=== PATIENT | male | born 1955 | race Two or more races ===

== ENCOUNTER 2017-11-21 15:28 | Emergency (ER) | payer OTHER | END 2017-11-21 18:08 | disposition home or self-care (01) | LOC: ER 18:08 | DX: R07.81 Pleurodynia (principal); M25.511 Pain in right shoulder; I10 Essential (primary) hypertension | CPT/HCPCS: 71101; 73030; 99284 ==

== ENCOUNTER 2018-05-06 08:40 | Outpatient (CLI) | payer OTHER ==
[~2018-05-06] VITALS: Ht 124.5 cm; Wt 45.4 kg
[2018-05-06] VITALS (8 sets, daily range): BP systolic 128–194; BP diastolic 76–109
[~2018-05-06 08:40] MED LIST: HYDR-3164 PO
[2018-05-06 08:56] LABS: BASO % 1 % (0-3); EOS # 0.1 x10^3/uL (0.0-0.7); EOS % 3 % (0-3); HEMATOCRIT 38.2 % (36.0-47.0); HEMOGLOBIN 13.1 g/dL (12.0-15.5); LYMPH # 1.9 x10^3/uL (1.0-4.8); LYMPH % 37 % (24-48); MEAN CORPUSCULAR HEMOGLOBIN 27 pg (25-35); MEAN CORPUSCULAR HGB CONC 34 g/dL (31-37); MEAN CORPUSCULAR VOLUME 79 fL (79-100); MONO # 0.3 x10^3/uL (0.0-1.1); MONO % 5 % (0-9); NEUT # 2.9 x10^3uL (1.8-7.7); NEUT % 54 % (31-73); PLATELET COUNT 163 x10^3/uL (140-400); RED BLOOD COUNT 4.85 x10^6/uL (3.50-5.40); RED CELL DISTRIBUTION WIDTH 16.8 % (11.5-14.5); WHITE BLOOD COUNT 5.3 x10^3/uL (4.0-11.0)
[2018-05-06] MEDS ORDERED: fentaNYL PF VIAL 100 MCG/2 ML VIAL ONE (09:09)
[2018-05-06] MEDS ORDERED: MIDAZOLAM HCL/PF 2 MG/2 ML VIAL. ONE (09:09)
[2018-05-06] MEDS ORDERED: LIDOCAINE WITH 8.4% SOD BICARB 3 ML DISP.SYRIN. ONE ×2 (09:09→09:10)
[2018-05-06 09:10] LABS: CALCIUM 9.1 mg/dL (8.5-10.1); CREATININE 0.7 mg/dL (0.6-1.0); GFR 84.8; POTASSIUM 4.4 mmol/L (3.5-5.1)
[2018-05-06] MEDS ORDERED: METO-247 PO (09:15)
[2018-05-06] MEDS ORDERED: METH2.5T PO (09:15)
[2018-05-06] MEDS ORDERED: VERA240C2 PO (09:15)
[2018-05-06] MEDS ORDERED: LEVO50TA5 PO (09:15)
[2018-05-06] MEDS ORDERED: HYDR-2145 PO (09:15)
[2018-05-06] MEDS ORDERED: FOLI1TAB16 PO (09:15)
[2018-05-06] MEDS ORDERED: PRED20TA PO (09:16)
[2018-05-06 09:17] LABS: ALBUMIN/GLOBULIN RATIO 0.5 (1.0-1.7); TOTAL BILIRUBIN 0.3 mg/dL (0.2-1.0); TOTAL PROTEIN 8.8 g/dL (6.4-8.2)
[2018-05-06 09:41] LABS: PROTHROMBIN TIME PATIENT 12.2 SEC (11.7-14.0)
[2018-05-06] MEDS ORDERED: LIDOCAINE WITH 8.4% SOD BICARB 3 ML DISP.SYRIN. IJ ONE (09:45)
[2018-05-06] MEDS ORDERED: MIDAZOLAM HCL/PF 2 MG/2 ML VIAL. IV ONE (09:45)
[2018-05-06] MEDS ORDERED: fentaNYL PF VIAL 100 MCG/2 ML VIAL IV ONE (09:45)
--- NOTE | 2018-05-06 11:09 | NUR ---
discharge instructions reviewed with pt and family. Pt tolerated PO and ambulated. Pt discharged home with family
--- NOTE | 2018-05-07 13:42 | RAD ---
CT-guided bone marrow biopsy. 05/07/2018 1:36 PM Indication: MGUS Discussion: The risks and benefits of the procedure, including but not limited to, bleeding and infection were discussed patient. Informed consent was obtained. The patient was brought to the CT scanner and placed in the prone position. A timeout procedure was performed. [employer] CT imaging of the pelvis demonstrated left ilium amenable to bone marrow biopsy. The overlying soft tissues were prepped and draped using maximum sterile barrier technique. 1% lidocaine without epinephrine was administered for local anesthesia. Under intermittent CT guidance, an Onc Control needle was advanced into the bone marrow of the left iliac crest. 2 Aspirates and 1 core biopsy samples were obtained. Samples were delivered to pathology was present at the time of procedure. The needle was removed and manual pressure held to achieve hemostasis. No immediate complications were identified. The procedure was performed under conscious sedation including continuous cardiopulmonary monitoring via dedicated sedation nurse. Sedation time: 20 minutes Impression: Successful CT-guided bone marrow biopsy of the left iliac crest . PQRS Compliance Statement: One or more of the following individualized dose reduction techniques were utilized for this examination: 1. Automated exposure control 2. Adjustment of the mA and/or kV according to patient size 3. Use of iterative reconstruction technique
--- NOTE | 2018-05-17 17:09 | PATHOLOGY ---
[facility] Accession Number: [id number] . 01 Material submitted: . PART A: BONE MARROW BIOPSY PART B: BONE MARROW CLOT PART C: BONE MARROW ASPRIATE SMEARS PART D: PERIPH BLOOD SMEARS . 01 Clinical history: . MGUS . 02 Diagnosis: Peripheral smear: - No significant pathologic abnormalities. . Bone marrow, aspirate smears, clot section, and core biopsy: - Normocellular marrow showing trilineage hematopoiesis, no significant dyspoiesis, and a moderate plasmacytosis comprised of abnormal plasma cells showing immunophenotypic evidence of lambda light chain restriction-findings are compatible with a plasma cell neoplasm. - Nearly absent iron stores. (JPM:conor; 05/17/2018) QMS/05/17/2018 . 02 Comment: The peripheral smear shows no significant pathologic abnormalities. The bone marrow is normocellular and shows trilineage hematopoiesis, no significant dyspoiesis, and a moderate plasmacytosis comprised of abnormal plasma cells showing immunophenotypic evidence of lambda light chain restriction. Plasma cells comprise approximately 20% of nucleated marrow cells. There does appear to be end organ damage as evidenced by the presence of multiple small lytic lesions in the calvarium on skeletal survey. 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 . The case is also examined by Dr. Vanesa Castillo, who concurs with the diagnosis. (JPM:conor; 05/17/2018) . . Special stains performed: Iron stain on B1. Aspirate smear and reticulin stain on A1. Immunoperoxidase stains for CD138 on A1 and B1. [place] and lambda ALEXANDR on A1. [place] and lambda ALEXANDR on B1. . 02 Electronically signed: . Óscar Baugh MD, Pathologist NPI- [id number] . 01 Gross description: . A. Received in formalin labeled "Madhav Evans, BM BX," is a single needle core of [place] bone measuring 1.4 cm in length and 0.2 cm in diameter. The specimen is submitted entirely in cassette A1, following decalcification. . B. Received in formalin labeled "Madhav Evans, BM Asp clot," is an aggregate of dark g[place]am blood clot measuring 2.6 x 2.9 x 0.3 cm. The specimen is filtered and entirely submitted in cassette B1. (TSD; 05/06/2018) TOB/TOB . 02 Microscopic: . Laboratory Data: The WBC count is 5.3 K/CMM, and the automated WBC differential reveals 54% neutrophils, 37% lymphs, 5% monos, 3% eos, and 1% baso. The RBC count is 4.85 M/CMM, hemoglobin 13.1 G/DL, hematocrit 38.2%, MCV 79 FL, MCH 27 PG, MCHC 34 G/DL, and the RDW is 16.8%. The platelet count is 163 K/CMM. The total protein is 8.8 G/DL, albumin 3.0 G/DL, and the globulin is 5.8 G/DL. Calcium is 9.1 MG/DL and Creatinine 0.7 MG/DL. . Additional laboratory studies are obtained from Dr. William' office. Serum protein electrophoresis shows a probable monoclonal spike in the beta/gamma region of 2.53 G/DL. Serum immunofixation shows an IgA lambda paraprotein. The serum IgG is 648 MG/DL, IgA 3280 MG/DL, and IgM 50 MG/DL. The serum kappa free light chain is 0.92 MG/DL, lambda free light chain 4.97 MG/DL, and kappa/lambda free light chain ratio 0.19. The beta-2 microglobulin is 2.5 MG/L. Skeletal survey in April 2018 showed multiple small lytic lesions in the calvarium and mild osteopenia. . Peripheral Smear: The peripheral smear is reviewed. The WBC count is normal. The WBC differential reveals a predominance of segmented neutrophils, with a smaller population of lymphocytes and with several monocytes and a few eosinophils noted. Neutrophils do not show dysplastic changes. There is no significant neutrophilic left shift. There are no circulating blasts. There is no leukoerythroblastic reaction. The lymphocyte population consists of small lymphocytes and several medium-sized granular lymphocytes and reactive lymphocytes. There are no circulating myeloma cells. Red blood cells are normochromic. Red blood cells show mild anisocytosis and range from normocytic to mildly microcytic. Red blood cells show no significant poikilocytosis. There is no evidence of red blood cell rouleaux. Platelets appear normal in number and morphology. . Aspirate Smears: Two Mcadams's-stained and one iron-stained aspirate smears are examined. The smears contain multiple marrow particles. The M/E ratio is within normal range. Erythroid maturation appears normoblastic. There are no megaloblastic or overt dysplastic changes. Granulopoiesis qualitatively appears normal. There are no significant dysplastic changes. There is no increase of blasts. Megakaryocytes appear adequate in number and are of variable ploidy. Plasma cells are increased. Plasma cells focally comprise up to approximately 15-20% of nucleated marrow cells. Other areas shows a smaller percentage of plasma cells. The plasma cells are abnormal and are enlarged, and possess enlarged rounded to ovoid nuclei containing small nucleoli. There are occasional binucleated and trinucleated plasma cells. Lymphocytes are not increased. There are no cells foreign to the marrow. The iron stain of the aspirate smear is insufficient for evaluation of iron stores because of a lack of marrow particles. . Bone Marrow Biopsy and Clot Section: Sections of the bone marrow biopsy reveal a segment of bone marrow which ranges from 10-20% up to approximately 40% cellular. The clot section contains multiple marrow particles, the majority of which range between 20% and 40% cellular. There is trilineage hematopoiesis. There is a good admixture of erythroid and granulocytic precursors, which are present in varying stages of maturation. There is no increase of blasts. Megakaryocytes appear adequate in number and are of variable ploidy. Plasma cells are increased and are focally present in small clusters. There are no areas of sheet-like replacement by plasma cells. The plasma cells are abnormal. The plasma cells are enlarged and have ample amounts of basophilic cytoplasm, and possess enlarged rounded to ovoid nuclei containing indistinct or small nucleoli. There are no abnormal lymphoid aggregates, granulomas, or cells foreign to the marrow. To confirm flow cytometric findings and characterize the target cells in a tissue architectural context, immunoperoxidase stain for CD138 and in situ hybridization for kappa and lambda light chain are obtained and yield the following results: . CD138 (A1): Plasma cells positive scattered throughout marrow and present in small clusters; plasma cells comprise approximately 20% of nucleated marrow cells. . [place] and lambda ALEXANDR (A1): Plasma cells show lambda light chain restriction with only a few kappa plasma cells present. . CD138 (B1): Plasma cells positive scattered throughout marrow and present in small clusters; plasma cells comprise approximately 20% of nucleated marrow cells. . [place] and lambda ALEXANDR (B1): Plasma cells show lambda light chain restriction with only a few kappa plasma cells present. . A reticulin stain obtained on the bone marrow biopsy shows no significant increase of reticulin fibers. An iron stain obtained on the clot section shows markedly decreased and nearly absent iron stores. No ringed sideroblasts are identified. . Special Studies: Bone marrow submitted for flow cytometry has a viability of 98.7%. Granulocytes comprise 43.6% of total cells and show phenotypic evidence of maturation. Monocytes comprise 2.0% of total cells and co-express CD14 and CD64. CD45 dim, CD34 positive cells comprise 0.2% of total cells. Lymphocytes comprise 23.4% of total cells. T-cells comprise 73% of lymphoid cells which show a CD4/CD8 ratio of 2.0. NK-cells comprise 12% of lymphoid cells. Mature B-cells comprise 9% of lymphoid cells and are polyclonal with a kappa:lambda ratio of 1.3. There is a population of monoclonal plasma cells, comprising 0.8% of cells, which are CD38, CD56, CD117 (partial), and CD138 positive and show cytoplasmic lambda positivity. These plasma cells are negative for CD19, CD20, and CD45. . Bone marrow submitted for cytogenetic analysis shows a normal female karyotype in all cells analyzed. (JPM:xi/conor; 05/17/2018) . 02 Pathologist provided ICD-10: D47.Z9, D72.822 . 02 CPT . 634832, 861629, 268631, 598747, 152753, 584425, 385970, 875079, P85597, D54882, G79489 Specimen Comment: A courtesy copy of this report has been sent to Specimen Comment: [phone]. Specimen Comment: Report sent to Performed at: [address] [facility], [place], [place] [id number] MD Darren Acevedo MD Phone: [phone] Performed at: 02 [facility] [address], [place] [id number] MD Óscar Baugh MD Phone: [phone]
== END 2018-05-06 11:10 | disposition home or self-care (01) ==
LOC: INTRAD 08:40
PROVIDERS: ATTEND Internal Medicine Hematology & Oncology
DX: D47.2 Monoclonal gammopathy (principal); D70.4 Cyclic neutropenia; I10 Essential (primary) hypertension; F17.200 Nicotine dependence, unspecified, uncomplicated; Z79.899 Other long term (current) drug therapy; Z88.1 Allergy status to other antibiotic agents
CPT/HCPCS: 36415; 38222; 77012; 80053; 85025; 85610; 88184; 88185; 88237; 99152; J2250; J3010

== ENCOUNTER 2018-06-14 17:17 | Emergency (ER) | payer OTHER ==
[~2018-06-14] VITALS: Ht 139.7 cm; Wt 45.4 kg
[~2018-06-14 17:17] MED LIST changes: +FOLI1TAB16 PO; +HYDR-2145 PO; +LEVO50TA5 PO; +METH2.5T PO; +METO-247 PO; +PRED20TA PO; +VERA240C2 PO
[2018-06-14 18:10] VITALS: BP 145/94
[2018-06-14] MEDS ORDERED: NAPROXEN 500 MG TABLET PO STA (18:31)
[2018-06-14] MEDS ORDERED: HYDROcodone/APAP 5/325MG 1 TAB TABLET PO ONE (18:45)
--- NOTE | 2018-06-14 20:24 | PHYS DOC ---
Past Medical History Past Medical History: Hypertension (DERRICK MARTINEZ APRN) Past Surgical History: No Surgical History (DERRICK MARTINEZ APRN) Alcohol Use: None Drug Use: None (TESSIEDERRICK Moreno APRN) Adult General Chief Complaint Chief Complaint: MECHANICAL FALL HPI HPI Patient is a 63 year old female with history of hypertension who presents to the ED today complaining of mild left lateral ankle pain that began 3 days ago after she slipped on ice and fell. Patient denies any loss of consciousness. She states her pain is worse on weight bearing. She states she has not taken anything for her pain today. Patient has the son who is interpreting for her [place] language (DERRICK MARTINEZ SHERLYN) Review of Systems Review of Systems Constitutional: Denies fever or chills [] Musculoskeletal: Left ankle pain Integument: Denies rash or skin lesions [] Neurologic: Denies headache, focal weakness or sensory changes [] All other systems were reviewed and found to be within normal limits, except as documented in this note. (HOWARDLISSADERRICK Moreno APRN) Current Medications Current Medications Current Medications Medications (Trade) Dose Ordered Sig/Idris Start Time Stop Time Status Last Admin Dose Admin Acetaminophen/ Hydrocodone Bitart (Lortab 5/325) 1 tab 1X ONCE 06/14/18 18:45 06/14/18 18:46 DC 06/14/18 18:44 1 TAB Naproxen (Naprosyn) 500 mg 1X STAT 06/14/18 18:31 06/14/18 18:34 DC 06/14/18 18:45 500 MG (MALU VERGARA MD) Allergies Allergies Allergies Coded Allergies Type Severity Reaction Last Updated Verified No Known Drug Allergies 11/21/17 No (MALU VERGARA MD) Physical Exam Physical Exam Constitutional: Well developed, well nourished, no acute distress, non-toxic appearance. [] Skin: Warm, dry, no erythema, no rash. [] Back: No tenderness, no CVA tenderness. [] Extremities: Left ankle with no obvious deformity, soft tissue swelling noted on the left lateral ankle as well as left foot the patient denies any foot pain or tenderness. Tenderness on palpation of the left lateral ankle. Full range of motion to the left ankle and toes. +2 left pedal pulse. Cap refill less than 2 seconds. Sensation intact to the left lower extremity. Neurologic: Alert and oriented X 3, normal motor function, normal sensory function, no focal deficits noted. [] Psychologic: Affect normal, judgement normal, mood normal. [] (DERRICK MARTINEZ APRN) Current Patient Data Vital Signs Vital Signs Date Time Temp Pulse Resp B/P (MAP) Pulse Ox O2 Delivery O2 Flow Rate FiO2 06/14/18 18:10 97.9 81 16 145/94 (111) 98 Room Air 97.9 (MALU VERGARA MD) EKG EKG [] (DERRICK MARTINEZ APRN) Radiology/Procedures Radiology/Procedures [] (DERRICK MARTINEZ APRN) Course & Med Decision Making Course & Med Decision Making Pertinent Labs and Imaging studies reviewed. (See chart for details) This is a 63-year-old female patient presented to the ED today with left ankle pain after falling 3 days ago. Left ankle x-rays interpreted by Dr. Vergara was noted for distal fibular fracture. Patient was placed in a posterior leg splint by the accounts payable technician, neurovascular exam done by me is normal post splint application. Ice elevation encouraged. Follow-up with orthopedic doctor tomorrow (DERRICK MARTINEZ APRN) Course & Med Decision Making Staff Physician Addendum: I was working in the ER during the course of this patient's visit. I was available for consultation as needed, but I was not directly involved in the care of this patient. (MALU VERGARA MD) Dragon Disclaimer Dragon Disclaimer This electronic medical record was generated, in whole or in part, using a voice recognition dictation system. (DERRICK MARTINEZ APRN) Departure Departure Impression: Primary Impression: Fall from standing Additional Impression: Closed fibular fracture Disposition: 01 HOME, SELF-CARE Condition: STABLE Referrals: HILDA SHAHID MD (PCP) WAYNE MUSA MD Call his office tomorrow and set up a follow-up appointment Patient Instructions: Fibular Fracture with [facility] Additional Instructions: You have left fibular fracture. Contact the provided orthopedic doctor tomorrow morning and set up a follow-up appointment. Ice elevate the extremity. Take the prescribed medications as needed for pain. Scripts Hydrocodone/Apap 5-325 (NORCO 5-325 TABLET) 1 Each Tablet 1 TAB PO Q6HRS, #20 TAB Prov: DERRICK MARTINEZ APRN 06/14/18 Problem Qualifiers Primary Impression: Fall from standing Encounter type: initial encounter Qualified Codes: W19.XXXA - Unspecified fall, initial encounter Additional Impression: Closed fibular fracture Encounter type: initial encounter Fibula location: distal Fracture morphology: unspecified fracture morphology Laterality: left Qualified Codes : S82.832A - Other fracture of upper and lower end of left fibula, initial encounter for closed fracture DERRICK MARTINEZ APRN Jun 14, 2018 20:24 MALU VERGARA MD Jun 15, 2018 04:48
[2018-06-14] MEDS ORDERED: HYDR-3164 PO (20:59)
--- NOTE | 2018-06-14 21:06 | RAD ---
Indication:LEFT KNEE PAIN AFTER FALL TECHNIQUE: 3 views of the left knee COMPARISON:None FINDINGS/ impression: No acute fracture or dislocation. No joint effusion. Moderate medial and lateral joint compartment arthritis. Electronically signed by: Tony Deluna DO (06/14/2018 9:03 PM) [facility]
--- NOTE | 2018-06-14 21:07 | RAD ---
Indication:LEFT LATERAL ANKLE PAIN, BRUISING AFTER FALL X1 WEEK AGO TECHNIQUE: 3 views of the left ankle COMPARISON:None FINDINGS/ impression: Oblique nondisplaced fracture is seen through the lateral malleolus. Ankle mortise is intact. Mild ankle soft tissue swelling. Electronically signed by: Tony Deluna DO (06/14/2018 9:04 PM) [facility]
== END 2018-06-14 21:15 | disposition home or self-care (01) ==
LOC: ER 17:17
DX: S82.832A Other fracture of upper and lower end of left fibula, initial encounter for closed fracture (principal); M25.562 Pain in left knee; I10 Essential (primary) hypertension; W00.2XXA Other fall from one level to another due to ice and snow, initial encounter; Y93.89 Activity, other specified; Y92.89 Other specified places as the place of occurrence of the external cause; Y99.8 Other external cause status
CPT/HCPCS: 29515; 73564; 73610; 99283-25

== ENCOUNTER 2018-08-04 19:11 | Inpatient (IN) | payer OTHER ==
[~2018-08-04] VITALS: Ht 124.5 cm; Wt 41.7 kg
[2018-08-04 20:29] LABS: BILIRUBIN,URINE NEGATIVE (NEG); CLARITY,URINE CLEAR; COLOR,URINE YELLOW; NITRITE,URINE NEGATIVE (NEG); PH,URINE 5.5; PROTEIN,URINE NEGATIVE (NEG-TRACE); UROBILINOGEN,URINE 0.2 mg/dL (0.2 mg/dL)
[2018-08-04] MEDS ORDERED: IPRATRPIUM/ALBUTEROL 0.5/2.5MG 3 ML NEBU. NEB ONE (20:30)
[2018-08-04] MEDS ORDERED: ACETAMINOPHEN 500 MG TABLET PO ONE (20:30)
[2018-08-04 20:45] LABS: SQUAMOUS EPITHELIAL CELL,UR MANY /LPF
[2018-08-04 20:46] LABS: BACTERIA,URINE MODERATE /HPF (0-FEW); RBC,URINE 0 /HPF (0-2); WBC,URINE >40 /HPF (0-4)
[2018-08-04 20:50] LABS: BASO % 0 % (0-3); EOS # 0.1 x10^3/uL (0.0-0.7); EOS % 2 % (0-3); HEMATOCRIT 41.5 % (36.0-47.0); HEMOGLOBIN 13.4 g/dL (12.0-15.5); LYMPH # 1.1 x10^3/uL (1.0-4.8); LYMPH % 33 % (24-48); MEAN CORPUSCULAR HEMOGLOBIN 26 pg (25-35); MEAN CORPUSCULAR HGB CONC 32 g/dL (31-37); MEAN CORPUSCULAR VOLUME 79 fL (79-100); MONO # 0.6 x10^3/uL (0.0-1.1); MONO % 19 % (0-9); NEUT # 1.6 x10^3uL (1.8-7.7); NEUT % 47 % (31-73); PLATELET COUNT 144 x10^3/uL (140-400); RED BLOOD COUNT 5.24 x10^6/uL (3.50-5.40); RED CELL DISTRIBUTION WIDTH 18.2 % (11.5-14.5); WHITE BLOOD COUNT 3.4 x10^3/uL (4.0-11.0)
[2018-08-04 21:00] LABS: CALCIUM 8.9 mg/dL (8.5-10.1); CREATININE 0.6 mg/dL (0.6-1.0); GFR 101.3; POTASSIUM 3.9 mmol/L (3.5-5.1)
[2018-08-04 21:06] LABS: ALBUMIN 3.6 g/dL (3.4-5.0); ALBUMIN/GLOBULIN RATIO 1.1 (1.0-1.7); TOTAL BILIRUBIN 0.4 mg/dL (0.2-1.0); TOTAL PROTEIN 6.9 g/dL (6.4-8.2)
--- NOTE | 2018-08-04 21:09 | PHYS DOC ---
Past Medical History Past Medical History: Cancer, Hypertension Additional Past Medical Histor: MGUS, Unknown Bone Marrow cancer Past Surgical History: No Surgical History Alcohol Use: None Drug Use: None Adult General Chief Complaint Chief Complaint: MULTIPLE COMPLAINTS HPI HPI Patient is a 63 year old female who presents with complaints of subjective fever, general malaise, fatigue, and abdominal pain. Pt is [place] and her history is provided by her son, who translates. Pt reports that she has an unknown bone marrow cancer (per my review of path report earlier this year probably multiple myeloma) and receives injectable chemotherapeutics Thursday and Thursday in the abdomen for the last several months. Pt reports intermittent cough with minimal to no sputum production. She reports increasing abdominal pain since Thursday following her latest injectable therapy. She reports that her abdomen is tender to touch with a burning sensation throughout her abdomen. This burning sensation has increased since Thursday and not improving. She has taken one dose of Tylenol today, with minimal improvement. She reports some diarrhea which resolved one day ago. She denies chills, n/v/CP/SOB. [] Review of Systems Review of Systems Constitutional: Reports subjective fever, general malaise, denies chills [] Eyes: Denies change in visual acuity, redness, or eye pain [] HENT: Denies nasal congestion or sore throat [] Respiratory: Reports intermittent cough with little to no sputum production. Denies shortness of breath [] Cardiovascular: No additional information not addressed in HPI [] GI: Denies bloody stools and nausea/vomiting. Reports burning abdominal pain, diarrhea [] : Denies dysuria or hematuria [] Musculoskeletal: Denies back pain or joint pain [] Integument: Denies rash or skin lesions [] Neurologic: Denies headache, focal weakness or sensory changes [] Endocrine: Denies polyuria or polydipsia [] All other systems were reviewed and found to be within normal limits, except as documented in this note. Current Medications Current Medications Current Medications Medications (Trade) Dose Ordered Sig/Idris Start Time Stop Time Status Last Admin Dose Admin Acetaminophen (Tylenol) 1,000 mg 1X ONCE 08/04/18 20:30 08/04/18 20:31 DC 08/04/18 22:30 1,000 MG Albuterol/ Ipratropium (Duoneb) 3 ml 1X ONCE 08/04/18 20:30 08/04/18 20:31 DC 08/04/18 20:39 3 ML Ceftriaxone Sodium (Rocephin) 1 gm 1X ONCE 08/04/18 22:30 08/04/18 22:31 DC 08/04/18 22:30 1 GM Fentanyl Citrate (Fentanyl 2ml Vial) 50 mcg PRN Q1HR PRN 08/04/18 23:00 08/05/18 22:59 08/04/18 23:27 50 MCG Ondansetron HCl (Zofran) 4 mg PRN Q8HRS PRN 08/04/18 23:00 08/05/18 22:59 Sodium Chloride 1,000 ml @ 100 mls/hr Q10H 08/04/18 23:00 08/05/18 22:59 08/04/18 23:26 100 MLS/HR Allergies Allergies Allergies Coded Allergies Type Severity Reaction Last Updated Verified No Known Drug Allergies 11/21/17 No Physical Exam Physical Exam Constitutional: Well developed, under nourished, no acute distress, appears subdued, non-toxic appearance. [] HENT: Normocephalic, atraumatic, bilateral external ears normal, oropharynx moist, no oral exudates, nose normal. [] Eyes: PERRLA, EOMI, conjunctiva normal, no discharge. [] Neck: Normal range of motion, no tenderness, supple, no stridor. [] Cardiovascular:Heart rate regular rhythm, no murmur [] Lungs & Thorax: Bilateral faint expiratory wheezes, no crackles [] Abdomen: mildly erythematous injection site observed RLQ no induration there, bowel sounds normal, soft, tender to palpation RLQ and periumbilicall, no masses , no pulsatile masses. [] Skin: Warm, dry, no erythema, no rash. [] Back: No tenderness, no CVA tenderness. [] Extremities: No tenderness, no cyanosis, no clubbing, ROM intact, no edema. [] Neurologic: Alert and oriented X 3, normal motor function, normal sensory function, no focal deficits noted. [] Psychologic: Affect normal, judgement normal, mood normal. [] Current Patient Data Vital Signs Vital Signs Date Time Temp Pulse Resp B/P (MAP) Pulse Ox O2 Delivery O2 Flow Rate FiO2 08/04/18 20:41 96 Room Air 08/04/18 20:35 78 24 143/99 (114) 08/04/18 19:25 97.9 97.9 Lab Values Laboratory Tests Test 08/04/18 19:30 08/04/18 20:40 08/04/18 22:05 Urine Collection Type Unknown Urine Color Yellow Urine Clarity Clear Urine pH 5.5 Urine Specific [place] 1.010 Urine Protein Negative mg/dL (NEG-TRACE) Urine Glucose (UA) Negative mg/dL (NEG) Urine Ketones (Stick) Negative mg/dL (NEG) Urine Blood Trace (NEG) Urine Nitrite Negative (NEG) Urine Bilirubin Negative (NEG) Urine Urobilinogen Dipstick 0.2 mg/dL (0.2 mg/dL) Urine Leukocyte Esterase Large (NEG) Urine RBC 0 /HPF (0-2) Urine WBC >40 /HPF (0-4) Urine Squamous Epithelial Cells Many /LPF Urine Bacteria Moderate /HPF (0-FEW) White Blood Count 3.4 x10^3/uL (4.0-11.0) L Red Blood Count 5.24 x10^6/uL (3.50-5.40) Hemoglobin 13.4 g/dL (12.0-15.5) Hematocrit 41.5 % (36.0-47.0) Mean Corpuscular Volume 79 fL (79-100) Mean Corpuscular Hemoglobin 26 pg (25-35) Mean Corpuscular Hemoglobin Concent 32 g/dL (31-37) Red Cell Distribution Width 18.2 % (11.5-14.5) H Platelet Count 144 x10^3/uL (140-400) Neutrophils (%) (Auto) 47 % (31-73) Lymphocytes (%) (Auto) 33 % (24-48) Monocytes (%) (Auto) 19 % (0-9) H Eosinophils (%) (Auto) 2 % (0-3) Basophils (%) (Auto) 0 % (0-3) Neutrophils # (Auto) 1.6 x10^3uL (1.8-7.7) L Lymphocytes # (Auto) 1.1 x10^3/uL (1.0-4.8) Monocytes # (Auto) 0.6 x10^3/uL (0.0-1.1) Eosinophils # (Auto) 0.1 x10^3/uL (0.0-0.7) Basophils # (Auto) 0.0 x10^3/uL (0.0-0.2) Segmented Neutrophils % 49 % (35-66) Band Neutrophils % 1 % (0-9) Lymphocytes % 32 % (24-48) Monocytes % 14 % (0-10) H Eosinophils % 3 % (0-5) Metamyelocytes % 1 % (0-0) H Platelet Estimate Adequate (ADEQUATE) Hypochromasia Slight Poikilocytosis Slight Anisocytosis Slight Tear Drop Cells Occ Sodium Level 140 mmol/L (136-145) Potassium Level 3.9 mmol/L (3.5-5.1) Chloride Level 104 mmol/L (98-107) Carbon Dioxide Level 27 mmol/L (21-32) Anion Gap 9 (6-14) Blood Urea Nitrogen 9 mg/dL (7-20) Creatinine 0.6 mg/dL (0.6-1.0) Estimated GFR (Cockcroft-Gault) 101.3 BUN/Creatinine Ratio 15 (6-20) Glucose Level 101 mg/dL (70-99) H Calcium Level 8.9 mg/dL (8.5-10.1) Total Bilirubin 0.4 mg/dL (0.2-1.0) Aspartate Amino Transferase (AST) 20 U/L (15-37) Alanine Aminotransferase (ALT) 25 U/L (14-59) Alkaline Phosphatase 112 U/L (46-116) Troponin I Quantitative < 0.017 ng/mL (0.000-0.055) EC-Btg-I-Type Natriuretic Peptide 58 pg/mL (0-124) Total Protein 6.9 g/dL (6.4-8.2) Albumin 3.6 g/dL (3.4-5.0) Albumin/Globulin Ratio 1.1 (1.0-1.7) Lipase 495 U/L (73-393) H Lactic Acid Level 0.7 mmol/L (0.4-2.0) Laboratory Tests 08/04/18 20:40 Laboratory Tests 08/04/18 20:40 EKG EKG []Sinus rhythm rate of 87 no acute ischemic changes noted interpreted by me time of encounter. Radiology/Procedures Radiology/Procedures []My wet read of the chest x-ray showed no definite pneumonia or pneumothorax no obvious pulmonary edema was seen Impressions: IMPRESSION: No renal calculi, hydronephrosis or obstructive uropathy. Dilatation without wall thickening of the proximal small intestinal tract without focal obstruction seen. Recommend clinical correlation and follow-up. Electronically signed by: Tawana Villagomez MD (08/04/2018 11:37 PM) [facility] Course & Med Decision Making Course & Med Decision Making Pertinent Labs and Imaging studies reviewed. (See chart for details) 61-year-old female with history of multiple myeloma, [place] female presents with malaise, abdominal pain with history of MGUS and multiple myeloma. Lipase was mildly elevated urinalysis does not UTI patient is technically immunocompromised most likely, has marginal white blood cell count with a ANC of 1600. Unclear etiology of possible pancreatitis in addition noted CT scan some dilated loops of bowel no obstruction was identified patient has not been vomiting therefore I don't think we need to do anything acute just will be admitted for serial exams and observationm, I did speak with Dr. pennington to admit this patient. ceftriaxone given for uti. [] Dragon Disclaimer Dragon Disclaimer This electronic medical record was generated, in whole or in part, using a voice recognition dictation system. Departure Departure Impression: Primary Impression: UTI (urinary tract infection) Additional Impression: Pancreatitis Disposition: ADMITTED INPATIENT Admitting Physician: Other Condition: STABLE Referrals: HILDA SHAHID MD (PCP) Problem Qualifiers MALU BALBUENA MD Aug 04, 2018 21:09
[2018-08-04 21:16] LABS: % BANDS 1 % (0-9); % EOS 3 % (0-5); % LYMPHS 32 % (24-48); % METAS 1 % (0-0); % MONOS 14 % (0-10); % SEGS 49 % (35-66); ANISOCYTOSIS SLIGHT; HYPOCHROMIA SLIGHT; PLT ESTIMATE ADEQUATE (ADEQUATE); POIKILOCYTOSIS SLIGHT; TEAR DROP CELLS OCC
[2018-08-04] MEDS ORDERED: IV NORMAL SALINE 1000ML BAG 1,000 ML IV ONE (22:00)
[2018-08-04] MEDS ORDERED: cefTRIAXone IV Push 1 GM VIAL. IVP ONE (22:30)
[2018-08-04] MEDS ORDERED: ONDANSETRON PF 4 MG/2 ML VIAL. IV PRN (23:00)
[2018-08-04] MEDS: IV NORMAL SALINE 1000ML BAG 1,000 ML IV SCH (23:26)
[2018-08-04] MEDS: fentaNYL PF VIAL 100 MCG/2 ML VIAL IV PRN (23:27)
--- NOTE | 2018-08-04 23:40 | RAD ---
CT abdomen and pelvis without contrast: Reason for examination: Diffuse abdominal pain. History of multiple myeloma. Helical images were obtained through the abdomen and pelvis without contrast administration. Reconstruction was performed in sagittal and coronal planes. Exposure: One or more of the following individualized dose reduction techniques were utilized for this examination: 1. Automated exposure control 2. Adjustment of the mA and/or kV according to patient size 3. Use of iterative reconstruction technique. The lung bases are clear. The heart size is normal with no pericardial effusion. No abnormality seen at the liver, gallbladder, pancreas, spleen or adrenal glands. The abdominal aorta and inferior vena cava show no acute abnormalities but there is arteriosclerotic vascular calcification. No abnormality seen at the appendix. There is no evidence of diverticulosis or diverticulitis. No abnormality seen at the stomach. The small intestinal tract shows dilatation proximally without wall thickening and there is no bowel obstruction seen. The kidneys show no renal masses, renal calculi, hydronephrosis or evidence of obstructive uropathy. No abnormality seen at the bladder uterus or ovaries. There is no evidence of free air or free fluid in the abdomen or pelvis. No acute bony abnormalities evident. IMPRESSION: No renal calculi, hydronephrosis or obstructive uropathy. Dilatation without wall thickening of the proximal small intestinal tract without focal obstruction seen. Recommend clinical correlation and follow-up. Electronically signed by: Tawana Villagomez MD (08/04/2018 11:37 PM) [facility]
[2018-08-05] VITALS (7 sets, daily range): BP systolic 102–173; BP diastolic 60–100
--- NOTE | 2018-08-05 00:35 | NUR ---
The patient, FABY MCCABE, 63 y/o, F admitted by CINDI GARCIA MD, was given written information regarding hospital policies, unit procedures and contact persons. Valuables were checked and left with the patient.
[2018-08-05] MEDS: fentaNYL PF VIAL 100 MCG/2 ML VIAL IV PRN ×2 (04:18→19:33)
--- NOTE | 2018-08-05 07:58 | RAD ---
Single view of the chest. 08/04/2018 8:08 PM Indication: Cough. ComparisonChest radiograph November 21, 2017 Findings: Diffuse interstitial coarsening is similar to comparison study. No pneumothorax or pleural effusion is seen. No focal consolidative infiltrate is identified. Heart size is top normal. Minimal linear opacities in the left lung base could represent scarring as they are similar to prior exam. No acute osseous changes are noted. IMPRESSION: 1. No evidence of acute cardiopulmonary process 2. Similar diffuse interstitial coarsening Electronically signed by: Neri Dickey MD (08/05/2018 7:55 AM) [id number]
[2018-08-05] MEDS: IV NORMAL SALINE 1000ML BAG 1,000 ML IV SCH ×2 (08:59→19:34)
--- NOTE | 2018-08-05 09:01 | EKG ---
[facility] [address] [place] [id number] Test Date: 2018-08-04 Test Time: 20:37:20 Pat Name: FABY MCCABE Department: Room: 528 1 Gender: F Stenciler: : [id number] Requested By: MALU BALBUENA Order Number: [id number] Reading MD: Vel Gardner Measurements Intervals [place] Rate: 87 P: 0 CT: 156 QRS: 7 QRSD: 72 T: 34 QT: 374 QTc: 451 Interpretive Statements SINUS RHYTHM NORMAL ECG Electronically Signed On 08-09-2018 13:29:58 CDT by Vel Gardner
--- NOTE | 2018-08-05 11:27 | PDOC1 ---
History and Physical Date of Admission Date of Admission DATE: 08/05/18 TIME: 11:27 Identification/Chief Complaint Chief Complaint seen in er ,. Pt reports that she has an unknown bone marrow cancer, multiple myeloma) and receives injectable chemotherapeutics Thursday and Thursday in the abdomen for the last several months. Pt reports intermittent cough with minimal to no sputum production. She reports increasing abdominal pain since Thursday following her latest injectable therapy. She reports that her abdomen is tender to touch with a burning sensation throughout her abdomen., PAIN IN LEFT LEG, BONE PAIN 75 MIN pt exam, chart review, > 50% of time with exam, chart review, pt care coordination Past Medical History Past Medical History Past Medical History Past Medical History Past Medical History: Cancer, Hypertension Additional Past Medical Histor: MGUS, myeloma Past Surgical History: No Surgical History Alcohol Use: None Drug Use: None family hx HTN Current Medications Current Medications Current Medications Acetaminophen (Tylenol) 1,000 mg 1X ONCE PO Last administered on 08/04/18at 22: 30; Start 08/04/18 at 20:30; Stop 08/04/18 at 20:31; Status DC Albuterol/ Ipratropium (Duoneb) 3 ml 1X ONCE NEB Last administered on at 20:39; Start 08/04/18 at 20:30; Stop 08/04/18 at 20:31; Status DC Sodium Chloride 1,000 ml @ 1,000 mls/hr 1X ONCE IV Last administered on at 22:30; Start 08/04/18 at 22:00; Stop 08/04/18 at 22:59; Status DC Ceftriaxone Sodium (Rocephin) 1 gm 1X ONCE IVP Last administered on 08/04/18at 22:30; Start 08/04/18 at 22:30; Stop 08/04/18 at 22:31; Status DC Ondansetron HCl (Zofran) 4 mg PRN Q8HRS PRN IV NAUSEA/VOMITING; Start 08/04/18 at 23:00; Stop 08/05/18 at 22:59 Fentanyl Citrate (Fentanyl 2ml Vial) 50 mcg PRN Q1HR PRN IV PAIN Last administered on 08/05/18at 04:18; Start 08/04/18 at 23:00; Stop 08/05/18 at 22:59 Sodium Chloride 1,000 ml @ 100 mls/hr Q10H IV Last administered on 08/05/18at 08:59; Start 08/04/18 at 23:00; Stop 08/05/18 at 22:59 Active Scripts Active [place] 5-325 Tablet (Acetaminophen/Hydrocodone Bitart) 1 Each Tablet 1 Tab PO Q6HRS [place] 5-325 Tablet (Acetaminophen/Hydrocodone Bitart) 1 Each Tablet 1 Tab PO PRN Q6HRS PRN Reported Prednisone 20 Mg Tablet 0.5 Tab PO QID Methotrexate (Methotrexate Sodium) 2.5 Mg Tablet 8 Tab PO WEEKLY Hydrochlorothiazide Tablet (Hydrochlorothiazide) 25 Mg Tablet 25 Mg PO DAILY Metoprolol Succinate ( Xl ) (Metoprolol Succinate) 100 Mg Tab.er.24h 1 Tab PO BID Folic Acid 1 Mg Tablet 1 Tab PO DAILY Verapamil Er (Verapamil Hcl) 240 Mg Cap24h.pel 1 Cap PO DAILY 180 MG Levothyroxine Sodium 50 Mcg Tablet 1 Tab PO DAILY Allergies Allergies: Coded Allergies: No Known Drug Allergies (Unverified , 11/21/17) ROS Review of System Review of Systems Review of Systems Constitutional: Reports subjective fever, general malaise, denies chills [] Eyes: Denies change in visual acuity, redness, or eye pain [] HENT: Denies nasal congestion or sore throat [] Respiratory: Reports intermittent cough with little to no sputum production. Denies shortness of breath [] Cardiovascular: No additional information not addressed in HPI [] GI: Denies bloody stools and nausea/vomiting. Reports burning abdominal pain, diarrhea [] : Denies dysuria or hematuria [] Musculoskeletal: Denies back pain or joint pain [] Integument: Denies rash or skin lesions [] Neurologic: Denies headache, focal weakness or sensory changes [] Endocrine: Denies polyuria or polydipsia [] 14 PT systems were reviewed and found to be within normal limits, except as documented Physical Exam Physical Exam Physical Exam Physical Exam Constitutional: Well developed, under nourished, no acute distress, appears subdued, non-toxic appearance. [] HENT: Normocephalic, atraumatic, bilateral external ears normal, oropharynx moist, no oral exudates, nose normal. [] Eyes: PERRLA, EOMI, conjunctiva normal, no discharge. [] Neck: Normal range of motion, no tenderness, supple, no stridor. [] Cardiovascular:Heart rate regular rhythm, no murmur [] Lungs & Thorax: Bilateral faint expiratory wheezes, no crackles [] Abdomen: mildly erythematous injection site observed RLQ no induration there, bowel sounds normal, soft, tender to palpation RLQ and periumbilicall, no masses , no pulsatile masses. [] Skin: Warm, dry, no erythema, no rash. [] Back: No tenderness, no CVA tenderness. [] Extremities: No tenderness, no cyanosis, no clubbing, ROM intact, no edema. [] Neurologic: Alert and oriented X 3, normal motor function, normal sensory function, no focal deficits noted. [] Psychologic: Affect normal, judgement normal, mood normal. [] General: Alert, Cooperative, mild distress HEENT: EOMI Lungs: Clear to auscultation, Normal air movement Breasts: Not examined Extremities: No cyanosis Neuro: Cranial nerves 3-12 NL Psych/Mental Status: Mood NL Vitals Vitals Vital Signs Date Time Temp Pulse Resp B/P (MAP) Pulse Ox O2 Delivery O2 Flow Rate FiO2 08/05/18 11:00 97.6 73 18 134/80 (98) 95 Nasal Cannula 2.0 97.6 Labs Labs Single view of the chest. 08/04/2018 8:08 PM Indication: Cough. ComparisonChest radiograph November 21, 2017 Findings: Diffuse interstitial coarsening is similar to comparison study. No pneumothorax or pleural effusion is seen. No focal consolidative infiltrate is identified. Heart size is top normal. Minimal linear opacities in the left lung base could represent scarring as they are similar to prior exam. No acute osseous changes are noted. IMPRESSION: 1. No evidence of acute cardiopulmonary process 2. Similar diffuse interstitial coarsening Electronically signed by: Neri Dickey MD (08/05/2018 7:55 AM) [facility] . REASON: diffuse abdo pain, hx of myeloma. r/o obstruction, stone etc wait for creat PROCEDURE: CT ABDOMEN PELVIS WO CONTRAST CT abdomen and pelvis without contrast: Reason for examination: Diffuse abdominal pain. History of multiple myeloma. Helical images were obtained through the abdomen and pelvis without contrast administration. Reconstruction was performed in sagittal and coronal planes. Exposure: One or more of the following individualized dose reduction techniques were utilized for this examination: 1. Automated exposure control 2. Adjustment of the mA and/or kV according to patient size 3. Use of iterative reconstruction technique. The lung bases are clear. The heart size is normal with no pericardial effusion. No abnormality seen at the liver, gallbladder, pancreas, spleen or adrenal glands. The abdominal aorta and inferior vena cava show no acute abnormalities but there is arteriosclerotic vascular calcification. No abnormality seen at the appendix. There is no evidence of diverticulosis or diverticulitis. No abnormality seen at the stomach. The small intestinal tract shows dilatation proximally without wall thickening and there is no bowel obstruction seen. The kidneys show no renal masses, renal calculi, hydronephrosis or evidence of obstructive uropathy. No abnormality seen at the bladder uterus or ovaries. There is no evidence of free air or free fluid in the abdomen or pelvis. No acute bony abnormalities evident. IMPRESSION: No renal calculi, hydronephrosis or obstructive uropathy. Dilatation without wall thickening of the proximal small intestinal tract without focal obstruction seen. Recommend clinical correlation and follow-up. Electronically signed by: Tawana Villagomez MD (08/04/2018 11:37 PM) [facility] 01 Material submitted: . PART A: BONE MARROW BIOPSY PART B: BONE MARROW CLOT PART C: BONE MARROW ASPRIATE SMEARS PART D: PERIPH BLOOD SMEARS . 01 Clinical history: . MGUS . 02 Diagnosis: Peripheral smear: - No significant pathologic abnormalities. . Bone marrow, aspirate smears, clot section, and core biopsy: - Normocellular marrow showing trilineage hematopoiesis, no significant dyspoiesis, and a moderate plasmacytosis comprised of abnormal plasma cells showing immunophenotypic evidence of lambda light chain restriction-findings are compatible with a plasma cell neoplasm. - Nearly absent iron stores. (JPM:conor; 05/17/2018) QMS/05/17/2018 . 02 Comment: The peripheral smear shows no significant pathologic abnormalities. The bone marrow is normocellular and shows trilineage hematopoiesis, no significant dyspoiesis, and a moderate plasmacytosis comprised of abnormal plasma cells showing immunophenotypic evidence of lambda light chain restriction. Plasma cells comprise approximately 20% of nucleated marrow cells. There does appear to be end organ damage as evidenced by the presence of multiple small lytic lesions in the calvarium on skeletal survey. 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 . The case is also examined by Dr. Vanesa Castillo, who concurs with the diagnosis. (JPM:conor; 05/17/2018) Laboratory Tests Test 08/04/18 19:30 08/04/18 20:40 08/04/18 22:05 Urine Collection Type Unknown Urine Color Yellow Urine Clarity Clear Urine pH 5.5 Urine Specific [place] 1.010 Urine Protein Negative mg/dL (NEG-TRACE) Urine Glucose (UA) Negative mg/dL (NEG) Urine Ketones (Stick) Negative mg/dL (NEG) Urine Blood Trace (NEG) Urine Nitrite Negative (NEG) Urine Bilirubin Negative (NEG) Urine Urobilinogen Dipstick 0.2 mg/dL (0.2 mg/dL) Urine Leukocyte Esterase Large (NEG) Urine RBC 0 /HPF (0-2) Urine WBC >40 /HPF (0-4) Urine Squamous Epithelial Cells Many /LPF Urine Bacteria Moderate /HPF (0-FEW) White Blood Count 3.4 x10^3/uL (4.0-11.0) Red Blood Count 5.24 x10^6/uL (3.50-5.40) Hemoglobin 13.4 g/dL (12.0-15.5) Hematocrit 41.5 % (36.0-47.0) Mean Corpuscular Volume 79 fL (79-100) Mean Corpuscular Hemoglobin 26 pg (25-35) Mean Corpuscular Hemoglobin Concent 32 g/dL (31-37) Red Cell Distribution Width 18.2 % (11.5-14.5) Platelet Count 144 x10^3/uL (140-400) Neutrophils (%) (Auto) 47 % (31-73) Lymphocytes (%) (Auto) 33 % (24-48) Monocytes (%) (Auto) 19 % (0-9) Eosinophils (%) (Auto) 2 % (0-3) Basophils (%) (Auto) 0 % (0-3) Neutrophils # (Auto) 1.6 x10^3uL (1.8-7.7) Lymphocytes # (Auto) 1.1 x10^3/uL (1.0-4.8) Monocytes # (Auto) 0.6 x10^3/uL (0.0-1.1) Eosinophils # (Auto) 0.1 x10^3/uL (0.0-0.7) Basophils # (Auto) 0.0 x10^3/uL (0.0-0.2) Segmented Neutrophils % 49 % (35-66) Band Neutrophils % 1 % (0-9) Lymphocytes % 32 % (24-48) Monocytes % 14 % (0-10) Eosinophils % 3 % (0-5) Metamyelocytes % 1 % (0-0) Platelet Estimate Adequate (ADEQUATE) Hypochromasia Slight Poikilocytosis Slight Anisocytosis Slight Tear Drop Cells Occ Sodium Level 140 mmol/L (136-145) Potassium Level 3.9 mmol/L (3.5-5.1) Chloride Level 104 mmol/L (98-107) Carbon Dioxide Level 27 mmol/L (21-32) Anion Gap 9 (6-14) Blood Urea Nitrogen 9 mg/dL (7-20) Creatinine 0.6 mg/dL (0.6-1.0) Estimated GFR (Cockcroft-Gault) 101.3 BUN/Creatinine Ratio 15 (6-20) Glucose Level 101 mg/dL (70-99) Calcium Level 8.9 mg/dL (8.5-10.1) Total Bilirubin 0.4 mg/dL (0.2-1.0) Aspartate Amino Transf (AST/SGOT) 20 U/L (15-37) Alanine Aminotransferase (ALT/SGPT) 25 U/L (14-59) Alkaline Phosphatase 112 U/L (46-116) Troponin I Quantitative < 0.017 ng/mL (0.000-0.055) TQ-Hov-Z-Type Natriuretic Peptide 58 pg/mL (0-124) Total Protein 6.9 g/dL (6.4-8.2) Albumin 3.6 g/dL (3.4-5.0) Albumin/Globulin Ratio 1.1 (1.0-1.7) Lipase 495 U/L (73-393) Lactic Acid Level 0.7 mmol/L (0.4-2.0) Laboratory Tests Test 08/04/18 19:30 08/04/18 20:40 08/04/18 22:05 Urine Collection Type Unknown Urine Color Yellow Urine Clarity Clear Urine pH 5.5 Urine Specific [place] 1.010 Urine Protein Negative mg/dL (NEG-TRACE) Urine Glucose (UA) Negative mg/dL (NEG) Urine Ketones (Stick) Negative mg/dL (NEG) Urine Blood Trace (NEG) Urine Nitrite Negative (NEG) Urine Bilirubin Negative (NEG) Urine Urobilinogen Dipstick 0.2 mg/dL (0.2 mg/dL) Urine Leukocyte Esterase Large (NEG) Urine RBC 0 /HPF (0-2) Urine WBC >40 /HPF (0-4) Urine Squamous Epithelial Cells Many /LPF Urine Bacteria Moderate /HPF (0-FEW) White Blood Count 3.4 x10^3/uL (4.0-11.0) Red Blood Count 5.24 x10^6/uL (3.50-5.40) Hemoglobin 13.4 g/dL (12.0-15.5) Hematocrit 41.5 % (36.0-47.0) Mean Corpuscular Volume 79 fL (79-100) Mean Corpuscular Hemoglobin 26 pg (25-35) Mean Corpuscular Hemoglobin Concent 32 g/dL (31-37) Red Cell Distribution Width 18.2 % (11.5-14.5) Platelet Count 144 x10^3/uL (140-400) Neutrophils (%) (Auto) 47 % (31-73) Lymphocytes (%) (Auto) 33 % (24-48) Monocytes (%) (Auto) 19 % (0-9) Eosinophils (%) (Auto) 2 % (0-3) Basophils (%) (Auto) 0 % (0-3) Neutrophils # (Auto) 1.6 x10^3uL (1.8-7.7) Lymphocytes # (Auto) 1.1 x10^3/uL (1.0-4.8) Monocytes # (Auto) 0.6 x10^3/uL (0.0-1.1) Eosinophils # (Auto) 0.1 x10^3/uL (0.0-0.7) Basophils # (Auto) 0.0 x10^3/uL (0.0-0.2) Segmented Neutrophils % 49 % (35-66) Band Neutrophils % 1 % (0-9) Lymphocytes % 32 % (24-48) Monocytes % 14 % (0-10) Eosinophils % 3 % (0-5) Metamyelocytes % 1 % (0-0) Platelet Estimate Adequate (ADEQUATE) Hypochromasia Slight Poikilocytosis Slight Anisocytosis Slight Tear Drop Cells Occ Sodium Level 140 mmol/L (136-145) Potassium Level 3.9 mmol/L (3.5-5.1) Chloride Level 104 mmol/L (98-107) Carbon Dioxide Level 27 mmol/L (21-32) Anion Gap 9 (6-14) Blood Urea Nitrogen 9 mg/dL (7-20) Creatinine 0.6 mg/dL (0.6-1.0) Estimated GFR (Cockcroft-Gault) 101.3 BUN/Creatinine Ratio 15 (6-20) Glucose Level 101 mg/dL (70-99) Calcium Level 8.9 mg/dL (8.5-10.1) Total Bilirubin 0.4 mg/dL (0.2-1.0) Aspartate Amino Transf (AST/SGOT) 20 U/L (15-37) Alanine Aminotransferase (ALT/SGPT) 25 U/L (14-59) Alkaline Phosphatase 112 U/L (46-116) Troponin I Quantitative < 0.017 ng/mL (0.000-0.055) FY-Pzp-H-Type Natriuretic Peptide 58 pg/mL (0-124) Total Protein 6.9 g/dL (6.4-8.2) Albumin 3.6 g/dL (3.4-5.0) Albumin/Globulin Ratio 1.1 (1.0-1.7) Lipase 495 U/L (73-393) Lactic Acid Level 0.7 mmol/L (0.4-2.0) VTE Prophylaxis Ordered VTE Prophylaxis Devices: Contraindicated VTE Pharmacological Prophylaxi: Yes Assessment/Plan Assessment/Plan Impression: UTI (urinary tract infection) Pancreatitis, MILD MYELOMA IMMUNOCOMPROMISED ON PREDNISONE BONE PAIN PLAN ADMITTED IV ROCEPHIN ID CONSULT ONCOLOGY CONSULT HOME MEDS PAIN CONTROL IV FLUID SUPPORT DVT PROPHYLAXIS BLOOD CULT, URINE CULT venous doppler both legs r/o dvt 75 MIN pt exam, chart review, > 50% of time with exam, chart review, pt care coordination IGNACIO LEGER MD Aug 05, 2018 11:27
[2018-08-05] MEDS ORDERED: cefTRIAXone IV Push 1 GM VIAL. IVP SCH (12:00)
[2018-08-05] MEDS: VERAPAMIL SR 120 MG TABLET.ER. PO SCH (15:00)
[2018-08-05] MEDS: hydroCHLOROthiazide 25 MG TABLET PO SCH (15:00)
[2018-08-05] MEDS: ENOXAPARIN 40 MG/0.4 ML SYRINGE. SQ SCH (15:00)
[2018-08-05] MEDS: FOLIC ACID 1 MG TABLET. PO SCH (15:00)
[2018-08-05] MEDS ORDERED: hydrALAZINE 20 MG/ML VIAL. IVP ONE (15:30)
--- NOTE | 2018-08-05 15:59 | RAD ---
Bilateral lower extremity venous duplex study 08/05/2018 3:21 PM Clinical History: Bilateral leg pain Comparison: None Technique: Using a combination of real time ultrasound imaging and color-flow and pulse Doppler imaging techniques along with graded compression and augmentation, duplex evaluation of the deep venous system of the both lower extremities was performed. Multiple images were obtained. Findings: There is no sonographic evidence of deep venous thrombosis involving the visualized deep venous structures of either lower extremity. Impression: No evidence of deep venous thrombosis mildly lower extremity Electronically signed by: Neri Dickey MD (08/05/2018 3:57 PM) [facility]
[2018-08-05] MEDS: HYDROcodone/APAP 5/325MG 1 TAB TABLET PO SCH (16:43)
--- NOTE | 2018-08-05 17:26 | PDOC ---
Provider Note Provider Note Pt seen and examined ID consult dictated [id number] Thank you GENI MELISSA MD Aug 05, 2018 17:26
[2018-08-05] MEDS: METOPROLOL SUCC 24HR ER 100 MG TAB.ER.24H. PO SCH (21:00)
[2018-08-06] VITALS (11 sets, daily range): BP systolic 86–145; BP diastolic 47–72
--- NOTE | 2018-08-06 01:43 | NUR ---
Patient's metoprolol and lortab not administered, as patient had reported abdominal discomfort, and is NPO. monitoring.
--- NOTE | 2018-08-06 03:35 | CONS ---
DATE OF CONSULTATION: 08/05/2018 REQUESTING PHYSICIAN: Dr. Jimmy Santos. REASON FOR CONSULTATION: Multiple myeloma, now admitted with urinary tract infection. HISTORY OF PRESENT ILLNESS: The patient is a 63-year-old female from [facility] who was diagnosed with IgA lambda multiple myeloma, stage I with normal cytogenetics by a bone marrow biopsy on 05/06/2018. Skeletal survey on 04/26/2018 revealed multiple lytic lesions. Serum protein electrophoresis on 04/21/2018 revealed IgA lambda paraprotein with paraprotein level of 2.53 and an IgA level of 3280. She was started on chemotherapy with Velcade, dexamethasone and Revlimid on 05/28/2018 and Revlimid was discontinued after cycle #2 because of her reaction to Revlimid causing severe joint pains and skin burning. She did not want to resume Revlimid anymore. She was continued on chemotherapy with Velcade and dexamethasone. She received cycle #2 on 06/18/2018 and cycle #3 on 07/09/2018. Cycle #4 was started on 07/30/2018. She was admitted to [facility] on 08/04/2018 with complaints of abdominal pain and fever. She was diagnosed with urinary tract infection and started on antibiotics. She underwent a CT scan of the abdomen and pelvis on 08/04/2018 that revealed no evidence of obstructive uropathy. Dilatation without wall thickening of the proximal small intestinal tract was noted. Ultrasound of the lower extremity on 08/05/2018 was negative for DVT. PAST MEDICAL HISTORY: Vision loss, rheumatoid arthritis, on methotrexate, osteoporosis, osteomyelitis, hypothyroidism, hypertension, giant cell arteritis, GERD, foot lesion, cataract, ankle fracture, type 2 diabetes. SOCIAL HISTORY: She quit smoking on 06/23/2015. FAMILY HISTORY: Mother early, no known history of malignancy. REVIEW OF SYSTEMS: A 12-point review of system was performed. Pertinent positives are mentioned in the history of present illness. Rest of the system review is negative. PHYSICAL EXAMINATION: GENERAL APPEARANCE: The patient is a 63-year-old female who is in no acute cardiorespiratory distress. VITAL SIGNS: Blood pressure 165/100, temperature 98.2. HEENT: Atraumatic, normocephalic. Eyes: No icterus. NECK: Supple. CHEST: Bilaterally symmetrical. HEART: S1, S2 normal. ABDOMEN: Soft, nontender. CENTRAL NERVOUS SYSTEM: No focal deficits. LYMPHATICS: No lymphadenopathy. SKIN: No rashes. PSYCHOLOGIC: Mood and affect are appropriate. MUSCULOSKELETAL: No joint effusions. LYMPHATICS: No lymphadenopathy. LABORATORY DATA: WBC 3.4, hemoglobin 13.4, platelet count 144. IMPRESSION AND PLAN: 1. Stage I multiple myeloma, IgA lambda type, diagnosed in 04/2018. She is currently on cycle #4 of chemotherapy with Velcade and dexamethasone. I have advised her to follow up as outpatient for continuation of chemotherapy. Chemotherapy will be deferred until her current infection completely resolves. 2. Urinary tract infection. Continue management per Dr. Ku. 3. Leukopenia, mild, due to chemotherapy. WBC 3.4 and absolute neutrophil count is 1.6. I will continue to monitor. PAOLA SULLIVAN MD DR: BRITTA/alexis JOB#: [id number] / [id number] MEMO
[2018-08-06] MEDS: LEVOTHYROXINE 50 MCG TABLET PO SCH (05:50)
[2018-08-06] MEDS: HYDROcodone/APAP 5/325MG 1 TAB TABLET PO SCH ×5 (05:50→23:34)
[2018-08-06 06:36] LABS: BASO % 0 % (0-3); EOS % 0 % (0-3); HEMATOCRIT 39.2 % (36.0-47.0); HEMOGLOBIN 12.3 g/dL (12.0-15.5); LYMPH % 26 % (24-48); MEAN CORPUSCULAR HEMOGLOBIN 25 pg (25-35); MEAN CORPUSCULAR HGB CONC 31 g/dL (31-37); MEAN CORPUSCULAR VOLUME 81 fL (79-100); MONO # 0.4 x10^3/uL (0.0-1.1); MONO % 11 % (0-9); NEUT # 2.5 x10^3uL (1.8-7.7); NEUT % 63 % (31-73); PLATELET COUNT 127 x10^3/uL (140-400); RED BLOOD COUNT 4.85 x10^6/uL (3.50-5.40); RED CELL DISTRIBUTION WIDTH 18.4 % (11.5-14.5)
[2018-08-06 06:49] LABS: ALBUMIN 3.1 g/dL (3.4-5.0); CALCIUM 8.1 mg/dL (8.5-10.1); CREATININE 0.5 mg/dL (0.6-1.0); POTASSIUM 3.4 mmol/L (3.5-5.1); TOTAL BILIRUBIN 0.4 mg/dL (0.2-1.0); TOTAL PROTEIN 6.1 g/dL (6.4-8.2)
[2018-08-06] MEDS ORDERED: PIP/TAZO PER PHARMACY MC PRN (08:45)
[2018-08-06] MEDS: hydroCHLOROthiazide 25 MG TABLET PO SCH (09:00)
[2018-08-06] MEDS: FOLIC ACID 1 MG TABLET. PO SCH (09:00)
[2018-08-06] MEDS: VERAPAMIL SR 120 MG TABLET.ER. PO SCH (09:00)
[2018-08-06] MEDS: METOPROLOL SUCC 24HR ER 100 MG TAB.ER.24H. PO SCH ×2 (09:00→21:00)
--- NOTE | 2018-08-06 09:21 | PDOC ---
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 GRAM POSITIVE COCCI IN CLUSTERS, blood cult SUGGESTIVE OF STAPH, suspect skin maryse contaminant PLAN ADMITTED IV zosyn, d/c iv rocephin, iv vanc 1 gm x 1 ID CONSULT ONCOLOGY CONSULT HOME MEDS PAIN CONTROL IV FLUID SUPPORT DVT PROPHYLAXIS repeat BLOOD CULT x 1 , URINE CULT venous doppler both legs r/o dvt 43 MIN pt exam, chart review, > 50% of time with exam, chart review, pt care coordination Vitals Vitals Vital Signs Date Time Temp Pulse Resp B/P (MAP) Pulse Ox O2 Delivery O2 Flow Rate FiO2 08/06/18 07:17 Room Air 08/06/18 07:00 98.1 72 18 101/59 (73) 96 2.0 98.1 Physical Exam General: Alert, Oriented X3, Cooperative, mild distress Heart: Regular rate, Normal S1, Normal S2 Lungs: Clear Abdomen: Normal bowel sounds, Soft, No tenderness Extremities: No cyanosis Skin: No significant lesion Labs LABS Bilateral lower extremity venous duplex study 08/05/2018 3:21 PM Clinical History: Bilateral leg pain Comparison: None Technique: Using a combination of real time ultrasound imaging and color-flow and pulse Doppler imaging techniques along with graded compression and augmentation, duplex evaluation of the deep venous system of the both lower extremities was performed. Multiple images were obtained. Findings: There is no sonographic evidence of deep venous thrombosis involving the visualized deep venous structures of either lower extremity. Impression: No evidence of deep venous thrombosis mildly lower extremity Electronically signed by: Neri Dickey MD (08/05/2018 3:57 PM) [id number] PATIENT: FABY MCCABE ACCT: [id number] LOC: [address] [place] [address] U : [id number] AGE/SX: 63/F ROOM: 528 REG : 08/04/[address]: CINDI GARCIA MD : 1955 BED: 1 DIS : STATUS: ADM IN TLOC: SPEC #: [id number] SERGO: 08/04/18 STATUS: COMP REQ #: [id number] RECD: 08/04/[address]: MALU BALBUENA MD SOURCE: BLOOD ENTR: 08/04/18 [facility] DR: HILDA SHAHID MD SPDESC: ORDERED: BCULT Procedure Result BLOOD CULTURE Final GRAM POSITIVE COCCI IN CLUSTERS, SUGGESTIVE OF STAPH, IN 1 OF 4 BOTTLES, TWO SETS DRAWN. CALLED TO SHILPI WEAVER RN ON 5N AT 8:20 ON 08/06/18 DW MT SENT TO [facility] FOR FURTHER WORKUP. Laboratory Tests Test 08/06/18 06:15 White Blood Count 4.0 x10^3/uL (4.0-11.0) Red Blood Count 4.85 x10^6/uL (3.50-5.40) Hemoglobin 12.3 g/dL (12.0-15.5) Hematocrit 39.2 % (36.0-47.0) Mean Corpuscular Volume 81 fL (79-100) Mean Corpuscular Hemoglobin 25 pg (25-35) Mean Corpuscular Hemoglobin Concent 31 g/dL (31-37) Red Cell Distribution Width 18.4 % (11.5-14.5) Platelet Count 127 x10^3/uL (140-400) Neutrophils (%) (Auto) 63 % (31-73) Lymphocytes (%) (Auto) 26 % (24-48) Monocytes (%) (Auto) 11 % (0-9) Eosinophils (%) (Auto) 0 % (0-3) Basophils (%) (Auto) 0 % (0-3) Neutrophils # (Auto) 2.5 x10^3uL (1.8-7.7) Lymphocytes # (Auto) 1.0 x10^3/uL (1.0-4.8) Monocytes # (Auto) 0.4 x10^3/uL (0.0-1.1) Eosinophils # (Auto) 0.0 x10^3/uL (0.0-0.7) Basophils # (Auto) 0.0 x10^3/uL (0.0-0.2) Sodium Level 140 mmol/L (136-145) Potassium Level 3.4 mmol/L (3.5-5.1) Chloride Level 106 mmol/L (98-107) Carbon Dioxide Level 19 mmol/L (21-32) Anion Gap 15 (6-14) Blood Urea Nitrogen 11 mg/dL (7-20) Creatinine 0.5 mg/dL (0.6-1.0) Estimated GFR (Cockcroft-Gault) 125.0 BUN/Creatinine Ratio 22 (6-20) Glucose Level 58 mg/dL (70-99) Calcium Level 8.1 mg/dL (8.5-10.1) Total Bilirubin 0.4 mg/dL (0.2-1.0) Aspartate Amino Transf (AST/SGOT) 23 U/L (15-37) Alanine Aminotransferase (ALT/SGPT) 21 U/L (14-59) Alkaline Phosphatase 87 U/L (46-116) Total Protein 6.1 g/dL (6.4-8.2) Albumin 3.1 g/dL (3.4-5.0) Albumin/Globulin Ratio 1.0 (1.0-1.7) Comment Review of Relevant I have reviewed the following items anai (where applicable) has been applied. Labs Laboratory Tests Test 08/04/18 19:30 08/04/18 20:40 08/04/18 22:05 08/06/18 06:15 Urine Collection Type Unknown Urine Color Yellow Urine Clarity Clear Urine pH 5.5 Urine Specific [place] 1.010 Urine Protein Negative mg/dL (NEG-TRACE) Urine Glucose (UA) Negative mg/dL (NEG) Urine Ketones (Stick) Negative mg/dL (NEG) Urine Blood Trace (NEG) Urine Nitrite Negative (NEG) Urine Bilirubin Negative (NEG) Urine Urobilinogen Dipstick 0.2 mg/dL (0.2 mg/dL) Urine Leukocyte Esterase Large (NEG) Urine RBC 0 /HPF (0-2) Urine WBC >40 /HPF (0-4) Urine Squamous Epithelial Cells Many /LPF Urine Bacteria Moderate /HPF (0-FEW) White Blood Count 3.4 x10^3/uL (4.0-11.0) 4.0 x10^3/uL (4.0-11.0) Red Blood Count 5.24 x10^6/uL (3.50-5.40) 4.85 x10^6/uL (3.50-5.40) Hemoglobin 13.4 g/dL (12.0-15.5) 12.3 g/dL (12.0-15.5) Hematocrit 41.5 % (36.0-47.0) 39.2 % (36.0-47.0) Mean Corpuscular Volume 79 fL (79-100) 81 fL (79-100) Mean Corpuscular Hemoglobin 26 pg (25-35) 25 pg (25-35) Mean Corpuscular Hemoglobin Concent 32 g/dL (31-37) 31 g/dL (31-37) Red Cell Distribution Width 18.2 % (11.5-14.5) 18.4 % (11.5-14.5) Platelet Count 144 x10^3/uL (140-400) 127 x10^3/uL (140-400) Neutrophils (%) (Auto) 47 % (31-73) 63 % (31-73) Lymphocytes (%) (Auto) 33 % (24-48) 26 % (24-48) Monocytes (%) (Auto) 19 % (0-9) 11 % (0-9) Eosinophils (%) (Auto) 2 % (0-3) 0 % (0-3) Basophils (%) (Auto) 0 % (0-3) 0 % (0-3) Neutrophils # (Auto) 1.6 x10^3uL (1.8-7.7) 2.5 x10^3uL (1.8-7.7) Lymphocytes # (Auto) 1.1 x10^3/uL (1.0-4.8) 1.0 x10^3/uL (1.0-4.8) Monocytes # (Auto) 0.6 x10^3/uL (0.0-1.1) 0.4 x10^3/uL (0.0-1.1) Eosinophils # (Auto) 0.1 x10^3/uL (0.0-0.7) 0.0 x10^3/uL (0.0-0.7) Basophils # (Auto) 0.0 x10^3/uL (0.0-0.2) 0.0 x10^3/uL (0.0-0.2) Segmented Neutrophils % 49 % (35-66) Band Neutrophils % 1 % (0-9) Lymphocytes % 32 % (24-48) Monocytes % 14 % (0-10) Eosinophils % 3 % (0-5) Metamyelocytes % 1 % (0-0) Platelet Estimate Adequate (ADEQUATE) Hypochromasia Slight Poikilocytosis Slight Anisocytosis Slight Tear Drop Cells Occ Sodium Level 140 mmol/L (136-145) 140 mmol/L (136-145) Potassium Level 3.9 mmol/L (3.5-5.1) 3.4 mmol/L (3.5-5.1) Chloride Level 104 mmol/L (98-107) 106 mmol/L (98-107) Carbon Dioxide Level 27 mmol/L (21-32) 19 mmol/L (21-32) Anion Gap 9 (6-14) 15 (6-14) Blood Urea Nitrogen 9 mg/dL (7-20) 11 mg/dL (7-20) Creatinine 0.6 mg/dL (0.6-1.0) 0.5 mg/dL (0.6-1.0) Estimated GFR (Cockcroft-Gault) 101.3 125.0 BUN/Creatinine Ratio 15 (6-20) 22 (6-20) Glucose Level 101 mg/dL (70-99) 58 mg/dL (70-99) Calcium Level 8.9 mg/dL (8.5-10.1) 8.1 mg/dL (8.5-10.1) Total Bilirubin 0.4 mg/dL (0.2-1.0) 0.4 mg/dL (0.2-1.0) Aspartate Amino Transf (AST/SGOT) 20 U/L (15-37) 23 U/L (15-37) Alanine Aminotransferase (ALT/SGPT) 25 U/L (14-59) 21 U/L (14-59) Alkaline Phosphatase 112 U/L (46-116) 87 U/L (46-116) Troponin I Quantitative < 0.017 ng/mL (0.000-0.055) BS-Maw-D-Type Natriuretic Peptide 58 pg/mL (0-124) Total Protein 6.9 g/dL (6.4-8.2) 6.1 g/dL (6.4-8.2) Albumin 3.6 g/dL (3.4-5.0) 3.1 g/dL (3.4-5.0) Albumin/Globulin Ratio 1.1 (1.0-1.7) 1.0 (1.0-1.7) Lipase 495 U/L (73-393) Lactic Acid Level 0.7 mmol/L (0.4-2.0) Laboratory Tests Test 08/06/18 06:15 White Blood Count 4.0 x10^3/uL (4.0-11.0) Red Blood Count 4.85 x10^6/uL (3.50-5.40) Hemoglobin 12.3 g/dL (12.0-15.5) Hematocrit 39.2 % (36.0-47.0) Mean Corpuscular Volume 81 fL (79-100) Mean Corpuscular Hemoglobin 25 pg (25-35) Mean Corpuscular Hemoglobin Concent 31 g/dL (31-37) Red Cell Distribution Width 18.4 % (11.5-14.5) Platelet Count 127 x10^3/uL (140-400) Neutrophils (%) (Auto) 63 % (31-73) Lymphocytes (%) (Auto) 26 % (24-48) Monocytes (%) (Auto) 11 % (0-9) Eosinophils (%) (Auto) 0 % (0-3) Basophils (%) (Auto) 0 % (0-3) Neutrophils # (Auto) 2.5 x10^3uL (1.8-7.7) Lymphocytes # (Auto) 1.0 x10^3/uL (1.0-4.8) Monocytes # (Auto) 0.4 x10^3/uL (0.0-1.1) Eosinophils # (Auto) 0.0 x10^3/uL (0.0-0.7) Basophils # (Auto) 0.0 x10^3/uL (0.0-0.2) Sodium Level 140 mmol/L (136-145) Potassium Level 3.4 mmol/L (3.5-5.1) Chloride Level 106 mmol/L (98-107) Carbon Dioxide Level 19 mmol/L (21-32) Anion Gap 15 (6-14) Blood Urea Nitrogen 11 mg/dL (7-20) Creatinine 0.5 mg/dL (0.6-1.0) Estimated GFR (Cockcroft-Gault) 125.0 BUN/Creatinine Ratio 22 (6-20) Glucose Level 58 mg/dL (70-99) Calcium Level 8.1 mg/dL (8.5-10.1) Total Bilirubin 0.4 mg/dL (0.2-1.0) Aspartate Amino Transf (AST/SGOT) 23 U/L (15-37) Alanine Aminotransferase (ALT/SGPT) 21 U/L (14-59) Alkaline Phosphatase 87 U/L (46-116) Total Protein 6.1 g/dL (6.4-8.2) Albumin 3.1 g/dL (3.4-5.0) Albumin/Globulin Ratio 1.0 (1.0-1.7) Microbiology 08/04/18 Blood Culture - Final, Complete Medications Current Medications Acetaminophen (Tylenol) 1,000 mg 1X ONCE PO Last administered on 08/04/18 22: 30; Start 08/04/18 at 20:30; Stop 08/04/18 at 20:31; Status DC Albuterol/ Ipratropium (Duoneb) 3 ml 1X ONCE NEB Last administered on at 20:39; Start 08/04/18 at 20:30; Stop 08/04/18 at 20:31; Status DC Sodium Chloride 1,000 ml @ 1,000 mls/hr 1X ONCE IV Last administered on at 22:30; Start 08/04/18 at 22:00; Stop 08/04/18 at 22:59; Status DC Ceftriaxone Sodium (Rocephin) 1 gm 1X ONCE IVP Last administered on 08/04/18at 22:30; Start 08/04/18 at 22:30; Stop 08/04/18 at 22:31; Status DC Ondansetron HCl (Zofran) 4 mg PRN Q8HRS PRN IV NAUSEA/VOMITING; Start 08/04/18 at 23:00; Stop 08/05/18 at 22:59; Status DC Fentanyl Citrate (Fentanyl 2ml Vial) 50 mcg PRN Q1HR PRN IV PAIN Last administered on 08/05/18at 19:33; Start 08/04/18 at 23:00; Stop 08/05/18 at 22:59 ; Status DC Sodium Chloride 1,000 ml @ 100 mls/hr Q10H IV Last administered on 08/05/18at 19:34; Start 08/04/18 at 23:00; Stop 08/05/18 at 22:59; Status DC Ceftriaxone Sodium (Rocephin) 1 gm Q24H IVP Last administered on 08/05/18at 12: 07; Start 08/05/18 at 12:00; Stop 08/06/18 at 08:57; Status DC Folic Acid (Folic Acid) 1 mg DAILY PO ; Start 08/05/18 at 15:00 Hydrochlorothiazide (Hydrodiuril) 25 mg DAILY PO ; Start 08/05/18 at 15:00 Acetaminophen/ Hydrocodone Bitart (Lortab 5/325) 1 tab PRN Q6HRS PRN PO MODERATE TO SEVERE PAIN; Start 08/05/18 at 14:00 Acetaminophen/ Hydrocodone Bitart (Lortab 5/325) 1 tab Q6HRS PO Last administered on 08/06/18at 05:50; Start 08/05/18 at 18:00 Metoprolol Succinate (Toprol Xl) 100 mg BID PO ; Start 08/05/18 at 21:00 Levothyroxine Sodium (Synthroid) 50 mcg DAILY06 PO Last administered on at 05:50; Start 08/06/18 at 06:00 Non-Formulary Medication (Methotrexate Sodium (Methotrexate)) 8 tab WEEKLY PO ; Start 08/12/18 at 09:00; Status UNV Verapamil HCl (Calan Sr) 240 mg DAILY PO ; Start 08/05/18 at 15:00 Enoxaparin Sodium (Lovenox 40mg Syringe) 40 mg Q24H SQ ; Start 08/05/18 at 15:00 Hydralazine HCl (Apresoline Inj) 10 mg 1X ONCE IVP Last administered on at 16:04; Start 08/05/18 at 15:30; Stop 08/05/18 at 15:51; Status DC Piperacillin Sod/ Tazobactam Sod (Zosyn Per Pharmacy) 1 each PRN DAILY PRN MC SEE COMMENTS; Start 08/06/18 at 08:45 Piperacillin Sod/ Tazobactam Sod 3.375 gm/Sodium Chloride 50 ml @ 100 mls/hr Q6HRS IV ; Start 08/06/18 at 09:30 Active Scripts Active Hope 5-325 Tablet (Acetaminophen/Hydrocodone Bitart) 1 Each Tablet 1 Tab PO Q6HRS Hope 5-325 Tablet (Acetaminophen/Hydrocodone Bitart) 1 Each Tablet 1 Tab PO PRN Q6HRS PRN Reported Prednisone 20 Mg Tablet 0.5 Tab PO QID Methotrexate (Methotrexate Sodium) 2.5 Mg Tablet 8 Tab PO WEEKLY Hydrochlorothiazide Tablet (Hydrochlorothiazide) 25 Mg Tablet 25 Mg PO DAILY Metoprolol Succinate ( Xl ) (Metoprolol Succinate) 100 Mg Tab.er.24h 1 Tab PO BID Folic Acid 1 Mg Tablet 1 Tab PO DAILY Verapamil Er (Verapamil Hcl) 240 Mg Cap24h.pel 1 Cap PO DAILY 180 MG Levothyroxine Sodium 50 Mcg Tablet 1 Tab PO DAILY Vitals/I & O Vital Sign - Last 24 Hours 08/05/18 08/05/18 08/05/18 08/05/18 11:00 15:00 16:04 19:00 Temp 97.6 98.2 97.4 97.6 98.2 97.4 Pulse 73 72 72 89 Resp 18 17 18 B/P (MAP) 134/80 (98) 165/100 (121) 165/100 102/60 (74) Pulse Ox 95 98 96 O2 Delivery Nasal Cannula Nasal Cannula Nasal Cannula O2 Flow Rate 2.0 2.0 2.0 08/05/18 08/05/18 08/05/18 08/05/18 19:33 20:00 20:03 23:00 Temp 97.4 97.4 Pulse 86 Resp 20 20 16 B/P (MAP) 124/74 (91) Pulse Ox 98 O2 Delivery Room Air Room Air Room Air Nasal Cannula O2 Flow Rate 2.0 08/06/18 08/06/18 08/06/18 08/06/18 03:00 05:50 07:00 07:17 Temp 97.1 98.1 97.1 98.1 Pulse 85 72 Resp 18 B/P (MAP) 145/72 (96) 101/59 (73) Pulse Ox 97 96 O2 Delivery Nasal Cannula Room Air Nasal Cannula Room Air O2 Flow Rate 2.0 2.0 Intake and Output 08/05/18 08/05/18 08/06/18 14:59 22:59 06:59 Intake Total 0 ml 1000 ml 1000 ml Balance 0 ml 1000 ml 1000 ml IGNACIO LEGER MD Aug 06, 2018 09:21
--- NOTE | 2018-08-06 09:23 | PDOC ---
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 Vital Signs: Vital Signs Vital Signs Date Time Temp Pulse Resp B/P (MAP) Pulse Ox O2 Delivery O2 Flow Rate FiO2 08/06/18 07:17 Room Air 08/06/18 07:00 98.1 72 18 101/59 (73) 96 2.0 98.1 Physical Exam: PHYSICAL EXAM HEENT: No icterus. NECK: Supple. CHEST: Clear HEART: S1, S2 normal. ABDOMEN: Soft, nontender.Mildly tender on deep palpation, no masses felt EXT no edema, calluses both feet, no skin opening or drainage CENTRAL NERVOUS SYSTEM: No focal deficits. SKIN: No gen rash. PSYCH: Mood and affect are appropriate. MUSCULOSKELETAL: No joint effusions. Medications: Inpatient Meds: Current Medications Medications (Trade) Dose Ordered Sig/Idris Start Time Stop Time Status Last Admin Dose Admin Acetaminophen (Tylenol) 1,000 mg 1X ONCE 08/04/18 20:30 08/04/18 20:31 DC 08/04/18 22:30 1,000 MG Acetaminophen/ Hydrocodone Bitart (Lortab 5/325) 1 tab Q6HRS 08/05/18 18:00 08/06/18 05:50 1 TAB Albuterol/ Ipratropium (Duoneb) 3 ml 1X ONCE 08/04/18 20:30 08/04/18 20:31 DC 08/04/18 20:39 3 ML Ceftriaxone Sodium (Rocephin) 1 gm Q24H 08/05/18 12:00 08/06/18 08:57 DC 08/05/18 12:07 1 GM Enoxaparin Sodium (Lovenox 40mg Syringe) 40 mg Q24H 08/05/18 15:00 Fentanyl Citrate (Fentanyl 2ml Vial) 50 mcg PRN Q1HR PRN 08/04/18 23:00 08/05/18 22:59 DC 08/05/18 19:33 50 MCG Folic Acid (Folic Acid) 1 mg DAILY 08/05/18 15:00 Hydralazine HCl (Apresoline Inj) 10 mg 1X ONCE 08/05/18 15:30 08/05/18 15:51 DC 08/05/18 16:04 10 MG Hydrochlorothiazide (Hydrodiuril) 25 mg DAILY 08/05/18 15:00 Levothyroxine Sodium (Synthroid) 50 mcg DAILY06 08/06/18 06:00 08/06/18 05:50 50 MCG Metoprolol Succinate (Toprol Xl) 100 mg BID 08/05/18 21:00 Non-Formulary Medication (Methotrexate Sodium (Methotrexate)) 8 tab WEEKLY 08/12/18 09:00 UNV Ondansetron HCl (Zofran) 4 mg PRN Q8HRS PRN 08/04/18 23:00 08/05/18 22:59 DC Piperacillin Sod/ Tazobactam Sod (Zosyn Per Pharmacy) 1 each PRN DAILY PRN 08/06/18 08:45 Piperacillin Sod/ Tazobactam Sod 3.375 gm/Sodium Chloride 50 ml @ 100 mls/hr Q6HRS 08/06/18 09:30 Sodium Chloride 1,000 ml @ 100 mls/hr Q10H 08/04/18 23:00 08/05/18 22:59 DC 08/05/18 19:34 100 MLS/HR Verapamil HCl (Calan Sr) 240 mg DAILY 08/05/18 15:00 Labs: Lab Laboratory Tests Test 08/06/18 06:15 White Blood Count 4.0 x10^3/uL (4.0-11.0) Red Blood Count 4.85 x10^6/uL (3.50-5.40) Hemoglobin 12.3 g/dL (12.0-15.5) Hematocrit 39.2 % (36.0-47.0) Mean Corpuscular Volume 81 fL (79-100) Mean Corpuscular Hemoglobin 25 pg (25-35) Mean Corpuscular Hemoglobin Concent 31 g/dL (31-37) Red Cell Distribution Width 18.4 % (11.5-14.5) Platelet Count 127 x10^3/uL (140-400) Neutrophils (%) (Auto) 63 % (31-73) Lymphocytes (%) (Auto) 26 % (24-48) Monocytes (%) (Auto) 11 % (0-9) Eosinophils (%) (Auto) 0 % (0-3) Basophils (%) (Auto) 0 % (0-3) Neutrophils # (Auto) 2.5 x10^3uL (1.8-7.7) Lymphocytes # (Auto) 1.0 x10^3/uL (1.0-4.8) Monocytes # (Auto) 0.4 x10^3/uL (0.0-1.1) Eosinophils # (Auto) 0.0 x10^3/uL (0.0-0.7) Basophils # (Auto) 0.0 x10^3/uL (0.0-0.2) Sodium Level 140 mmol/L (136-145) Potassium Level 3.4 mmol/L (3.5-5.1) Chloride Level 106 mmol/L (98-107) Carbon Dioxide Level 19 mmol/L (21-32) Anion Gap 15 (6-14) Blood Urea Nitrogen 11 mg/dL (7-20) Creatinine 0.5 mg/dL (0.6-1.0) Estimated GFR (Cockcroft-Gault) 125.0 BUN/Creatinine Ratio 22 (6-20) Glucose Level 58 mg/dL (70-99) Calcium Level 8.1 mg/dL (8.5-10.1) Total Bilirubin 0.4 mg/dL (0.2-1.0) Aspartate Amino Transf (AST/SGOT) 23 U/L (15-37) Alanine Aminotransferase (ALT/SGPT) 21 U/L (14-59) Alkaline Phosphatase 87 U/L (46-116) Total Protein 6.1 g/dL (6.4-8.2) Albumin 3.1 g/dL (3.4-5.0) Albumin/Globulin Ratio 1.0 (1.0-1.7) Micro RUN DATE: 08/06/18 PAGE 1 RUN TIME: 829 [facility] [address] [place] [address] Óscar Baugh M.D., Automation Technologist PATIENT: FABY MCCABE ACCT: [id number] LOC: [address] [place] [address] U : [id number] AGE/SX: 63/F ROOM: 528 REG : 08/04/[address]: CINDI GARCIA MD : 1955 BED: 1 DIS : STATUS: ADM IN TLOC: SPEC #: [id number] SERGO: 08/04/18 STATUS: COMP REQ #: [id number] RECD: 08/04/[address]: MALU BALBUENA MD SOURCE: BLOOD ENTR: 08/04/[address] [facility] [address]: HILDA SHAHID MD [facility]: ORDERED: BCULT Procedure Result BLOOD CULTURE Final GRAM POSITIVE COCCI IN CLUSTERS, SUGGESTIVE OF STAPH, IN 1 OF 4 BOTTLES, TWO SETS DRAWN. CALLED TO SHILPI WEAVER RN ON 5N AT 8:20 ON 08/06/18 DW MT SENT TO [employer] FOR FURTHER WORKUP. Objective: Assessment: GPC bacteremia POA 04/23 could be a contaminant MM on Chemo Immunosuppression Pyuria Abdo pain leg pain mild pancreatitis leucopenia Plan: Plan of Care cont rocephin vanco one dose today f/u id and katharina of gpc f/u labs in am and cults cont supportive care D/W Lance D/W GENI ZEE MD Aug 06, 2018 09:23
--- NOTE | 2018-08-06 09:24 | NUR ---
SW following pt for anticipated dc needs. Chart reviewed and DW RN. Pt lives at home with family. PT/OT pending. SW will await for PT/OT recommendations to assess skilled needs. ID also following pt. Will continue to follow.
[2018-08-06] MEDS ORDERED: VANCOMYCIN 1 GM in IV NORMAL SALINE 250ML 250 ML IV ONE (09:30)
[2018-08-06] MEDS ORDERED: VANCOMYCIN 1GM IVPB FOR OMNI 250 ML IV ONE (09:30)
[2018-08-06] MEDS: PIPERACILLIN/TAZOBACTAM 3.375 GM in IV NORMAL SALINE 50ML 50 ML IV SCH ×3 (11:14→23:34)
--- NOTE | 2018-08-06 11:43 | CONS ---
DATE OF CONSULTATION: 08/05/2018 REFERRING PHYSICIAN: Dr. Ku. REASON FOR CONSULTATION: UTI, the patient with MGUS, on immunosuppression. HISTORY OF PRESENT ILLNESS: A 63-year-old [place] female whose history is provided by her son at bedside who translates for the patient, presented to the ER on 08/04/2018 with complaints of subjective fevers, generalized malaise, abdominal pain, poor appetite. The patient has MGUS, for which she is receiving injectable chemotherapeutic with Dr. William on Thursday and Thursday in the abdomen for the last several months. The patient also had some burning sensation in the stomach. She has intermittent cough, but no sputum production. Denies any headache. Denies any sores in the mouth. Denies any dental pain. Denies any nausea, vomiting, chest pain, shortness of breath, symptoms. She also had some diarrhea, but that has spontaneously resolved. She took some Tylenol with minimal improvement, so was brought to the ED. Her white count was 3.4, with platelets of 144. Creatinine was 0.6, with lipase of 495. Lactate was 0.7. She underwent chest x-ray, which showed no evidence of acute cardiopulmonary process, similar diffuse interstitial coarsening. Abdominal and pelvic CT showed no renal calculi, hydronephrosis or obstructive uropathy dilatation without wall thickening of the proximal small intestinal tract without focal obstruction seen. Lower extremity ultrasound showed no evidence of DVT. The patient also has pain in the right calf area and the bones. She denies being on antibiotics recently. Denies any sick contact. PAST MEDICAL HISTORY: MGUS, on chemotherapy Thursday and Thursday injectable in the abdomen. Hypertension, history of fall, calluses in both feet, hypothyroidism. SOCIAL HISTORY: Denies smoking, ETOH or illicit drug use. Lives with a son. FAMILY HISTORY: Per HPI. CURRENT MEDICATIONS: Tylenol, ceftriaxone 1 gram IV q. daily. Lovenox, fentanyl patch, folic acid, hydralazine, hydrochlorothiazide, hydrocodone APAP, Combivent, levothyroxine, metoprolol, Zofran, verapamil, methotrexate. ALLERGIES: No known drug allergies. REVIEW OF SYSTEMS: Limited, but as above in HPI. PHYSICAL EXAMINATION: VITAL SIGNS: Temperature 98.2, pulse 72, respiratory rate 17, blood pressure 165/100, oxygen saturation 98% on 2 liters. GENERAL: Alert, oriented x 3 female, lying in bed comfortably, in no acute distress. Son at bedside. HEENT: Normocephalic, atraumatic, anicteric. Dentition poor. No thrush. Oral mucosa moist. NECK: Supple. No JVD. LUNGS: Clear bilaterally. No wheezing. CARDIOVASCULAR: S1, S2. No gallops, murmurs or rubs. ABDOMEN: Mildly distended. Mild tenderness present, diffuse. No rebound, no guarding. Bowel sounds present. BACK: Reveals normal curvature. No CVA tenderness. SKIN: Warm, dry, no generalized rash. NEUROLOGIC: Alert and oriented x 3, grossly nonfocal. PSYCHIATRIC: Cooperative, appropriate mood and affect. EXTREMITIES: No edema, no cyanosis, no clubbing. Callus is present on both the feet. No skin breakdown. No evidence of secondary bacterial infection. LABORATORY DATA: WBC 3.4, hemoglobin 13.4, hematocrit 41.5, platelets 144, neutrophil 47. Sodium 140, potassium 3.9, chloride 104, bicarbonate 27, BUN 9, creatinine 0.6, glucose 101. Lactate 0.7, calcium 8.9, total bilirubin 0.4, AST 20, ALT 25, alkaline phosphatase 112. Troponin less than 0.17. BNP 58, total protein 6.9, albumin 3.6, lipase 495. UA shows large leukocyte esterase, greater than [address] abdomen and pelvis as above. 2. Left lower extremity ultrasound as above. 3. Chest x-ray as above. 4. Micro blood culture pending. 5. Urine culture pending. IMPRESSION: 1. Febrile illness, etiology unclear, could be from mild pancreatitis versus urinary tract infection, though the patient denies any complaints of genitourinary symptoms. 2. MGUS, on immunosuppression with injectable chemotherapeutic agent on Thursday and Thursday by Dr. Wliliam. 3. Immunocompromised, on prednisone and methotrexate. 4. Bone pain. 5. Bilateral foot callus. 6. Leukopenia. RECOMMENDATIONS: 1. Continue empiric Rocephin for now. 2. Awaiting oncology consult. 3. Continue supportive care. 4. Follow up cultures and lab in a.m. 5. Discussed with son at bedside. 6. All questions answered. Thank you, Dr. Ku for consulting Infectious Disease to participate in this patient's care. If you have any questions, do not hesitate to contact me. Discussed with son at bedside. Discussed with RN. GENI MELISSA MD DR: WES/alexis JOB#: [id number] / [id number] MEMO
--- NOTE | 2018-08-06 12:42 | PDOC ---
PROGRESS NOTES Subjective Subjective HPI - f/u of Stage I multiple myeloma, IgA lambda type ROS - no fever Objective Objective Vital Signs Date Time Temp Pulse Resp B/P (MAP) Pulse Ox O2 Delivery O2 Flow Rate FiO2 08/06/18 11:00 98.0 74 18 105/62 (76) 96 Nasal Cannula 2.0 98.0 Intake and Output 08/06/18 07:00 Intake Total 2000 ml Balance 2000 ml Intake Oral 0 ml IV Total 2000 ml # Voids 8 Physical Exam General: No acute distress Neck: No JVD Assessment Assessment IMPRESSION AND PLAN: 1. Stage I multiple myeloma, IgA lambda type, diagnosed in 04/2018. She is currently on cycle #4 of chemotherapy with Velcade and dexamethasone. I have advised her to follow up as outpatient for continuation of chemotherapy. Chemotherapy will be deferred until her current infection completely resolves. 2. Urinary tract infection. Continue management per Dr. Ku. I d/w Dr Ku. 3. Leukopenia, mild, due to chemotherapy. WBC 3.4 and absolute neutrophil count is 1.6. WBC better at 4.0 on 08/06/18 Comment Review of Relevant I have reviewed the following items anai (where applicable) has been applied. Labs Laboratory Tests Test 08/04/18 19:30 08/04/18 20:40 08/04/18 22:05 08/06/18 06:15 Urine Collection Type Unknown Urine Color Yellow Urine Clarity Clear Urine pH 5.5 Urine Specific [place] 1.010 Urine Protein Negative mg/dL (NEG-TRACE) Urine Glucose (UA) Negative mg/dL (NEG) Urine Ketones (Stick) Negative mg/dL (NEG) Urine Blood Trace (NEG) Urine Nitrite Negative (NEG) Urine Bilirubin Negative (NEG) Urine Urobilinogen Dipstick 0.2 mg/dL (0.2 mg/dL) Urine Leukocyte Esterase Large (NEG) Urine RBC 0 /HPF (0-2) Urine WBC >40 /HPF (0-4) Urine Squamous Epithelial Cells Many /LPF Urine Bacteria Moderate /HPF (0-FEW) White Blood Count 3.4 x10^3/uL (4.0-11.0) 4.0 x10^3/uL (4.0-11.0) Red Blood Count 5.24 x10^6/uL (3.50-5.40) 4.85 x10^6/uL (3.50-5.40) Hemoglobin 13.4 g/dL (12.0-15.5) 12.3 g/dL (12.0-15.5) Hematocrit 41.5 % (36.0-47.0) 39.2 % (36.0-47.0) Mean Corpuscular Volume 79 fL (79-100) 81 fL (79-100) Mean Corpuscular Hemoglobin 26 pg (25-35) 25 pg (25-35) Mean Corpuscular Hemoglobin Concent 32 g/dL (31-37) 31 g/dL (31-37) Red Cell Distribution Width 18.2 % (11.5-14.5) 18.4 % (11.5-14.5) Platelet Count 144 x10^3/uL (140-400) 127 x10^3/uL (140-400) Neutrophils (%) (Auto) 47 % (31-73) 63 % (31-73) Lymphocytes (%) (Auto) 33 % (24-48) 26 % (24-48) Monocytes (%) (Auto) 19 % (0-9) 11 % (0-9) Eosinophils (%) (Auto) 2 % (0-3) 0 % (0-3) Basophils (%) (Auto) 0 % (0-3) 0 % (0-3) Neutrophils # (Auto) 1.6 x10^3uL (1.8-7.7) 2.5 x10^3uL (1.8-7.7) Lymphocytes # (Auto) 1.1 x10^3/uL (1.0-4.8) 1.0 x10^3/uL (1.0-4.8) Monocytes # (Auto) 0.6 x10^3/uL (0.0-1.1) 0.4 x10^3/uL (0.0-1.1) Eosinophils # (Auto) 0.1 x10^3/uL (0.0-0.7) 0.0 x10^3/uL (0.0-0.7) Basophils # (Auto) 0.0 x10^3/uL (0.0-0.2) 0.0 x10^3/uL (0.0-0.2) Segmented Neutrophils % 49 % (35-66) Band Neutrophils % 1 % (0-9) Lymphocytes % 32 % (24-48) Monocytes % 14 % (0-10) Eosinophils % 3 % (0-5) Metamyelocytes % 1 % (0-0) Platelet Estimate Adequate (ADEQUATE) Hypochromasia Slight Poikilocytosis Slight Anisocytosis Slight Tear Drop Cells Occ Sodium Level 140 mmol/L (136-145) 140 mmol/L (136-145) Potassium Level 3.9 mmol/L (3.5-5.1) 3.4 mmol/L (3.5-5.1) Chloride Level 104 mmol/L (98-107) 106 mmol/L (98-107) Carbon Dioxide Level 27 mmol/L (21-32) 19 mmol/L (21-32) Anion Gap 9 (6-14) 15 (6-14) Blood Urea Nitrogen 9 mg/dL (7-20) 11 mg/dL (7-20) Creatinine 0.6 mg/dL (0.6-1.0) 0.5 mg/dL (0.6-1.0) Estimated GFR (Cockcroft-Gault) 101.3 125.0 BUN/Creatinine Ratio 15 (6-20) 22 (6-20) Glucose Level 101 mg/dL (70-99) 58 mg/dL (70-99) Calcium Level 8.9 mg/dL (8.5-10.1) 8.1 mg/dL (8.5-10.1) Total Bilirubin 0.4 mg/dL (0.2-1.0) 0.4 mg/dL (0.2-1.0) Aspartate Amino Transf (AST/SGOT) 20 U/L (15-37) 23 U/L (15-37) Alanine Aminotransferase (ALT/SGPT) 25 U/L (14-59) 21 U/L (14-59) Alkaline Phosphatase 112 U/L (46-116) 87 U/L (46-116) Troponin I Quantitative < 0.017 ng/mL (0.000-0.055) XA-Aho-F-Type Natriuretic Peptide 58 pg/mL (0-124) Total Protein 6.9 g/dL (6.4-8.2) 6.1 g/dL (6.4-8.2) Albumin 3.6 g/dL (3.4-5.0) 3.1 g/dL (3.4-5.0) Albumin/Globulin Ratio 1.1 (1.0-1.7) 1.0 (1.0-1.7) Lipase 495 U/L (73-393) Lactic Acid Level 0.7 mmol/L (0.4-2.0) Laboratory Tests Test 08/06/18 06:15 White Blood Count 4.0 x10^3/uL (4.0-11.0) Red Blood Count 4.85 x10^6/uL (3.50-5.40) Hemoglobin 12.3 g/dL (12.0-15.5) Hematocrit 39.2 % (36.0-47.0) Mean Corpuscular Volume 81 fL (79-100) Mean Corpuscular Hemoglobin 25 pg (25-35) Mean Corpuscular Hemoglobin Concent 31 g/dL (31-37) Red Cell Distribution Width 18.4 % (11.5-14.5) Platelet Count 127 x10^3/uL (140-400) Neutrophils (%) (Auto) 63 % (31-73) Lymphocytes (%) (Auto) 26 % (24-48) Monocytes (%) (Auto) 11 % (0-9) Eosinophils (%) (Auto) 0 % (0-3) Basophils (%) (Auto) 0 % (0-3) Neutrophils # (Auto) 2.5 x10^3uL (1.8-7.7) Lymphocytes # (Auto) 1.0 x10^3/uL (1.0-4.8) Monocytes # (Auto) 0.4 x10^3/uL (0.0-1.1) Eosinophils # (Auto) 0.0 x10^3/uL (0.0-0.7) Basophils # (Auto) 0.0 x10^3/uL (0.0-0.2) Sodium Level 140 mmol/L (136-145) Potassium Level 3.4 mmol/L (3.5-5.1) Chloride Level 106 mmol/L (98-107) Carbon Dioxide Level 19 mmol/L (21-32) Anion Gap 15 (6-14) Blood Urea Nitrogen 11 mg/dL (7-20) Creatinine 0.5 mg/dL (0.6-1.0) Estimated GFR (Cockcroft-Gault) 125.0 BUN/Creatinine Ratio 22 (6-20) Glucose Level 58 mg/dL (70-99) Calcium Level 8.1 mg/dL (8.5-10.1) Total Bilirubin 0.4 mg/dL (0.2-1.0) Aspartate Amino Transf (AST/SGOT) 23 U/L (15-37) Alanine Aminotransferase (ALT/SGPT) 21 U/L (14-59) Alkaline Phosphatase 87 U/L (46-116) Total Protein 6.1 g/dL (6.4-8.2) Albumin 3.1 g/dL (3.4-5.0) Albumin/Globulin Ratio 1.0 (1.0-1.7) Microbiology 08/04/18 Blood Culture - Final, Complete Medications Current Medications Acetaminophen (Tylenol) 1,000 mg 1X ONCE PO Last administered on 08/04/18at 22: 30; Start 08/04/18 at 20:30; Stop 08/04/18 at 20:31; Status DC Albuterol/ Ipratropium (Duoneb) 3 ml 1X ONCE NEB Last administered on at 20:39; Start 08/04/18 at 20:30; Stop 08/04/18 at 20:31; Status DC Sodium Chloride 1,000 ml @ 1,000 mls/hr 1X ONCE IV Last administered on at 22:30; Start 08/04/18 at 22:00; Stop 08/04/18 at 22:59; Status DC Ceftriaxone Sodium (Rocephin) 1 gm 1X ONCE IVP Last administered on 08/04/18at 22:30; Start 08/04/18 at 22:30; Stop 08/04/18 at 22:31; Status DC Ondansetron HCl (Zofran) 4 mg PRN Q8HRS PRN IV NAUSEA/VOMITING; Start 08/04/18 at 23:00; Stop 08/05/18 at 22:59; Status DC Fentanyl Citrate (Fentanyl 2ml Vial) 50 mcg PRN Q1HR PRN IV PAIN Last administered on 08/05/18at 19:33; Start 08/04/18 at 23:00; Stop 08/05/18 at 22:59 ; Status DC Sodium Chloride 1,000 ml @ 100 mls/hr Q10H IV Last administered on 08/05/18at 19:34; Start 08/04/18 at 23:00; Stop 08/05/18 at 22:59; Status DC Ceftriaxone Sodium (Rocephin) 1 gm Q24H IVP Last administered on 08/05/18at 12: 07; Start 08/05/18 at 12:00; Stop 08/06/18 at 08:57; Status DC Folic Acid (Folic Acid) 1 mg DAILY PO ; Start 08/05/18 at 15:00 Hydrochlorothiazide (Hydrodiuril) 25 mg DAILY PO ; Start 08/05/18 at 15:00 Acetaminophen/ Hydrocodone Bitart (Lortab 5/325) 1 tab PRN Q6HRS PRN PO MODERATE TO SEVERE PAIN; Start 08/05/18 at 14:00 Acetaminophen/ Hydrocodone Bitart (Lortab 5/325) 1 tab Q6HRS PO Last administered on 08/06/18at 12:28; Start 08/05/18 at 18:00 Metoprolol Succinate (Toprol Xl) 100 mg BID PO ; Start 08/05/18 at 21:00 Levothyroxine Sodium (Synthroid) 50 mcg DAILY06 PO Last administered on at 05:50; Start 08/06/18 at 06:00 Non-Formulary Medication (Methotrexate Sodium (Methotrexate)) 8 tab WEEKLY PO ; Start 08/12/18 at 09:00; Status UNV Verapamil HCl (Calan Sr) 240 mg DAILY PO ; Start 08/05/18 at 15:00 Enoxaparin Sodium (Lovenox 40mg Syringe) 40 mg Q24H SQ ; Start 08/05/18 at 15:00 Hydralazine HCl (Apresoline Inj) 10 mg 1X ONCE IVP Last administered on at 16:04; Start 08/05/18 at 15:30; Stop 08/05/18 at 15:51; Status DC Piperacillin Sod/ Tazobactam Sod (Zosyn Per Pharmacy) 1 each PRN DAILY PRN [facility] SEE COMMENTS; Start 08/06/18 at 08:45 Piperacillin Sod/ Tazobactam Sod 3.375 gm/Sodium Chloride 50 ml @ 100 mls/hr Q6HRS IV Last administered on 08/06/18at 11:14; Start 08/06/18 at 09:30 Vancomycin HCl 1 gm/Sodium Chloride 250 ml @ 250 mls/hr ONCE ONCE IV Last administered on 08/06/18at 10:01; Start 08/06/18 at 09:30; Stop 08/06/18 at 10:29 ; Status DC Vancomycin HCl 250 ml @ 250 mls/hr 1X ONCE IV ; Start 08/06/18 at 09:30; Stop 08/06/18 at 10:29; Status UNV Active Scripts Active Jackson 5-325 Tablet (Acetaminophen/Hydrocodone Bitart) 1 Each Tablet 1 Tab PO Q6HRS Jackson 5-325 Tablet (Acetaminophen/Hydrocodone Bitart) 1 Each Tablet 1 Tab PO PRN Q6HRS PRN Reported Prednisone 20 Mg Tablet 0.5 Tab PO QID Methotrexate (Methotrexate Sodium) 2.5 Mg Tablet 8 Tab PO WEEKLY Hydrochlorothiazide Tablet (Hydrochlorothiazide) 25 Mg Tablet 25 Mg PO DAILY Metoprolol Succinate ( Xl ) (Metoprolol Succinate) 100 Mg Tab.er.24h 1 Tab PO BID Folic Acid 1 Mg Tablet 1 Tab PO DAILY Verapamil Er (Verapamil Hcl) 240 Mg Cap24h.pel 1 Cap PO DAILY 180 MG Levothyroxine Sodium 50 Mcg Tablet 1 Tab PO DAILY Vitals/I & O Vital Sign - Last 24 Hours 08/05/18 08/05/18 08/05/18 08/05/18 15:00 16:04 19:00 19:33 Temp 98.2 97.4 98.2 97.4 Pulse 72 72 89 Resp 17 18 20 B/P (MAP) 165/100 (121) 165/100 102/60 (74) Pulse Ox 98 96 O2 Delivery Nasal Cannula Nasal Cannula Room Air O2 Flow Rate 2.0 2.0 08/05/18 08/05/18 08/05/18 08/06/18 20:00 20:03 23:00 03:00 Temp 97.4 97.1 97.4 97.1 Pulse 86 85 Resp 20 16 16 B/P (MAP) 124/74 (91) 145/72 (96) Pulse Ox 98 97 O2 Delivery Room Air Room Air Nasal Cannula Nasal Cannula O2 Flow Rate 2.0 2.0 08/06/18 08/06/18 08/06/18/19/19 05:50 07:00 07:17 08:00 Temp 98.1 98.1 Pulse 72 Resp 20 18 B/P (MAP) 101/59 (73) Pulse Ox 96 O2 Delivery Room Air Nasal Cannula Room Air Room Air O2 Flow Rate 2.0 08/06/18 11:00 Temp 98.0 98.0 Pulse 74 Resp 18 B/P (MAP) 105/62 (76) Pulse Ox 96 O2 Delivery Nasal Cannula O2 Flow Rate 2.0 Intake and Output 08/05/18 08/05/18 08/06/18 15:00 23:00 07:00 Intake Total 0 ml 1000 ml 1000 ml Balance 0 ml 1000 ml 1000 ml PAOLA SULLIVAN MD Aug 06, 2018 12:42
[2018-08-06] MEDS ORDERED: IV NORMAL SALINE 1000ML BAG 1,000 ML IV ONE (14:00)
--- NOTE | 2018-08-06 14:03 | NUR ---
Patient was working with OT/PT and was walking the unit when she expressed she was really dizzy and began grabbing the lópez. CLient was escorted back to her room where she stopped to go to the bathroom. She was then escorted to bed and her blood pressure was taken while sitting and it was 91/49, then the patient laid down and two additional measures were taken and they were 86/47 and 87/48. Dr. Ku was contact and ordered 1 liter of NS to be given over an hour and a lactic acid to be drawn.
[2018-08-06] MEDS: ENOXAPARIN 40 MG/0.4 ML SYRINGE. SQ SCH (15:00)
[2018-08-06] MEDS ORDERED: POTASSIUM CHLORIDE 20 MEQ TABLET.ER. PO ONE (17:30)
[2018-08-06] MEDS: HYDROcodone/APAP 5/325MG 1 TAB TABLET PO PRN (18:33)
[2018-08-07] VITALS (7 sets, daily range): BP systolic 86–153; BP diastolic 52–82
[2018-08-07] MEDS: LEVOTHYROXINE 50 MCG TABLET PO SCH (05:16)
[2018-08-07] MEDS: PIPERACILLIN/TAZOBACTAM 3.375 GM in IV NORMAL SALINE 50ML 50 ML IV SCH ×4 (05:17→23:54)
[2018-08-07] MEDS: HYDROcodone/APAP 5/325MG 1 TAB TABLET PO SCH ×4 (05:17→23:54)
[2018-08-07 05:38] LABS: BASO % 0 % (0-3); EOS # 0.1 x10^3/uL (0.0-0.7); EOS % 1 % (0-3); HEMATOCRIT 35.7 % (36.0-47.0); HEMOGLOBIN 11.6 g/dL (12.0-15.5); LYMPH # 1.4 x10^3/uL (1.0-4.8); LYMPH % 28 % (24-48); MEAN CORPUSCULAR HEMOGLOBIN 26 pg (25-35); MEAN CORPUSCULAR HGB CONC 33 g/dL (31-37); MEAN CORPUSCULAR VOLUME 81 fL (79-100); MONO # 0.4 x10^3/uL (0.0-1.1); MONO % 9 % (0-9); NEUT # 3.1 x10^3uL (1.8-7.7); NEUT % 62 % (31-73); PLATELET COUNT 123 x10^3/uL (140-400); RED BLOOD COUNT 4.41 x10^6/uL (3.50-5.40); RED CELL DISTRIBUTION WIDTH 18.9 % (11.5-14.5); WHITE BLOOD COUNT 4.9 x10^3/uL (4.0-11.0)
[2018-08-07 05:50] LABS: ALBUMIN 3.1 g/dL (3.4-5.0); ALBUMIN/GLOBULIN RATIO 1.2 (1.0-1.7); CALCIUM 8.3 mg/dL (8.5-10.1); CREATININE 0.6 mg/dL (0.6-1.0); GFR 101.3; POTASSIUM 3.7 mmol/L (3.5-5.1); TOTAL BILIRUBIN 0.7 mg/dL (0.2-1.0); TOTAL PROTEIN 5.7 g/dL (6.4-8.2)
[2018-08-07] MEDS: METOPROLOL SUCC 24HR ER 100 MG TAB.ER.24H. PO SCH ×2 (09:00→20:56)
[2018-08-07] MEDS: VERAPAMIL SR 120 MG TABLET.ER. PO SCH (09:00)
[2018-08-07] MEDS: hydroCHLOROthiazide 25 MG TABLET PO SCH (09:00)
[2018-08-07] MEDS: FOLIC ACID 1 MG TABLET. PO SCH ×2 (09:57→10:01)
--- NOTE | 2018-08-07 11:43 | PDOC ---
PROGRESS NOTES Chief Complaint Chief Complaint Abdominal pain with leg pain and cough History of Present Illness History of Present Illness This is a pleasant patient from [facility]. She does not speak [place], but her son was present in the room today. Her abdominal pain is much better today. She has not eaten a meal yet, but she is hungry. Vitals Vitals Vital Signs Date Time Temp Pulse Resp B/P (MAP) Pulse Ox O2 Delivery O2 Flow Rate FiO2 08/07/18 11:00 97.8 75 18 129/67 (87) 97 Room Air 97.8 08/06/18 11:00 2.0 Physical Exam General: Alert, Oriented X3, Cooperative, No acute distress Heart: Regular rate, Normal S1, Normal S2, No murmurs Lungs: Clear (No wheezes, rales, or rhonchi) Abdomen: Soft, No tenderness, No masses Extremities: No edema, Normal pulses, No tenderness/swelling Skin: No rashes, No breakdown, No significant lesion Labs LABS Laboratory Tests Test 08/06/18 15:40 08/07/18 04:50 Lactic Acid Level 0.8 mmol/L (0.4-2.0) White Blood Count 4.9 x10^3/uL (4.0-11.0) Red Blood Count 4.41 x10^6/uL (3.50-5.40) Hemoglobin 11.6 g/dL (12.0-15.5) Hematocrit 35.7 % (36.0-47.0) Mean Corpuscular Volume 81 fL (79-100) Mean Corpuscular Hemoglobin 26 pg (25-35) Mean Corpuscular Hemoglobin Concent 33 g/dL (31-37) Red Cell Distribution Width 18.9 % (11.5-14.5) Platelet Count 123 x10^3/uL (140-400) Neutrophils (%) (Auto) 62 % (31-73) Lymphocytes (%) (Auto) 28 % (24-48) Monocytes (%) (Auto) 9 % (0-9) Eosinophils (%) (Auto) 1 % (0-3) Basophils (%) (Auto) 0 % (0-3) Neutrophils # (Auto) 3.1 x10^3uL (1.8-7.7) Lymphocytes # (Auto) 1.4 x10^3/uL (1.0-4.8) Monocytes # (Auto) 0.4 x10^3/uL (0.0-1.1) Eosinophils # (Auto) 0.1 x10^3/uL (0.0-0.7) Basophils # (Auto) 0.0 x10^3/uL (0.0-0.2) Sodium Level 138 mmol/L (136-145) Potassium Level 3.7 mmol/L (3.5-5.1) Chloride Level 105 mmol/L (98-107) Carbon Dioxide Level 18 mmol/L (21-32) Anion Gap 15 (6-14) Blood Urea Nitrogen 9 mg/dL (7-20) Creatinine 0.6 mg/dL (0.6-1.0) Estimated GFR (Cockcroft-Gault) 101.3 BUN/Creatinine Ratio 15 (6-20) Glucose Level 51 mg/dL (70-99) Calcium Level 8.3 mg/dL (8.5-10.1) Total Bilirubin 0.7 mg/dL (0.2-1.0) Aspartate Amino Transf (AST/SGOT) 23 U/L (15-37) Alanine Aminotransferase (ALT/SGPT) 22 U/L (14-59) Alkaline Phosphatase 78 U/L (46-116) Total Protein 5.7 g/dL (6.4-8.2) Albumin 3.1 g/dL (3.4-5.0) Albumin/Globulin Ratio 1.2 (1.0-1.7) Review of Systems Review of Systems Patient denies fevers, chills, N/V, CP, SOB, and diarrhea. Assessment and Plan Assessmemt and Plan Assessment: UTI Pancreatitis, MILD Multiple myeloma Immunocompromised on prednisone Bone pain Plan: Zosyn ID consult Heme onc consult Start with clear liquid diet and advance diet as tolerated Recheck lipase level Continue home meds F/u labs PT/OT DVT prophylaxis Can discharge when ok with consults Comment Review of Relevant I have reviewed the following items anai (where applicable) has been applied. Labs Laboratory Tests Test 08/06/18 06:15 08/06/18 15:40 08/07/18 04:50 White Blood Count 4.0 x10^3/uL (4.0-11.0) 4.9 x10^3/uL (4.0-11.0) Red Blood Count 4.85 x10^6/uL (3.50-5.40) 4.41 x10^6/uL (3.50-5.40) Hemoglobin 12.3 g/dL (12.0-15.5) 11.6 g/dL (12.0-15.5) Hematocrit 39.2 % (36.0-47.0) 35.7 % (36.0-47.0) Mean Corpuscular Volume 81 fL (79-100) 81 fL (79-100) Mean Corpuscular Hemoglobin 25 pg (25-35) 26 pg (25-35) Mean Corpuscular Hemoglobin Concent 31 g/dL (31-37) 33 g/dL (31-37) Red Cell Distribution Width 18.4 % (11.5-14.5) 18.9 % (11.5-14.5) Platelet Count 127 x10^3/uL (140-400) 123 x10^3/uL (140-400) Neutrophils (%) (Auto) 63 % (31-73) 62 % (31-73) Lymphocytes (%) (Auto) 26 % (24-48) 28 % (24-48) Monocytes (%) (Auto) 11 % (0-9) 9 % (0-9) Eosinophils (%) (Auto) 0 % (0-3) 1 % (0-3) Basophils (%) (Auto) 0 % (0-3) 0 % (0-3) Neutrophils # (Auto) 2.5 x10^3uL (1.8-7.7) 3.1 x10^3uL (1.8-7.7) Lymphocytes # (Auto) 1.0 x10^3/uL (1.0-4.8) 1.4 x10^3/uL (1.0-4.8) Monocytes # (Auto) 0.4 x10^3/uL (0.0-1.1) 0.4 x10^3/uL (0.0-1.1) Eosinophils # (Auto) 0.0 x10^3/uL (0.0-0.7) 0.1 x10^3/uL (0.0-0.7) Basophils # (Auto) 0.0 x10^3/uL (0.0-0.2) 0.0 x10^3/uL (0.0-0.2) Sodium Level 140 mmol/L (136-145) 138 mmol/L (136-145) Potassium Level 3.4 mmol/L (3.5-5.1) 3.7 mmol/L (3.5-5.1) Chloride Level 106 mmol/L (98-107) 105 mmol/L (98-107) Carbon Dioxide Level 19 mmol/L (21-32) 18 mmol/L (21-32) Anion Gap 15 (6-14) 15 (6-14) Blood Urea Nitrogen 11 mg/dL (7-20) 9 mg/dL (7-20) Creatinine 0.5 mg/dL (0.6-1.0) 0.6 mg/dL (0.6-1.0) Estimated GFR (Cockcroft-Gault) 125.0 101.3 BUN/Creatinine Ratio 22 (6-20) 15 (6-20) Glucose Level 58 mg/dL (70-99) 51 mg/dL (70-99) Calcium Level 8.1 mg/dL (8.5-10.1) 8.3 mg/dL (8.5-10.1) Total Bilirubin 0.4 mg/dL (0.2-1.0) 0.7 mg/dL (0.2-1.0) Aspartate Amino Transf (AST/SGOT) 23 U/L (15-37) 23 U/L (15-37) Alanine Aminotransferase (ALT/SGPT) 21 U/L (14-59) 22 U/L (14-59) Alkaline Phosphatase 87 U/L (46-116) 78 U/L (46-116) Total Protein 6.1 g/dL (6.4-8.2) 5.7 g/dL (6.4-8.2) Albumin 3.1 g/dL (3.4-5.0) 3.1 g/dL (3.4-5.0) Albumin/Globulin Ratio 1.0 (1.0-1.7) 1.2 (1.0-1.7) Lactic Acid Level 0.8 mmol/L (0.4-2.0) Laboratory Tests Test 08/06/18 15:40 08/07/18 04:50 Lactic Acid Level 0.8 mmol/L (0.4-2.0) White Blood Count 4.9 x10^3/uL (4.0-11.0) Red Blood Count 4.41 x10^6/uL (3.50-5.40) Hemoglobin 11.6 g/dL (12.0-15.5) Hematocrit 35.7 % (36.0-47.0) Mean Corpuscular Volume 81 fL (79-100) Mean Corpuscular Hemoglobin 26 pg (25-35) Mean Corpuscular Hemoglobin Concent 33 g/dL (31-37) Red Cell Distribution Width 18.9 % (11.5-14.5) Platelet Count 123 x10^3/uL (140-400) Neutrophils (%) (Auto) 62 % (31-73) Lymphocytes (%) (Auto) 28 % (24-48) Monocytes (%) (Auto) 9 % (0-9) Eosinophils (%) (Auto) 1 % (0-3) Basophils (%) (Auto) 0 % (0-3) Neutrophils # (Auto) 3.1 x10^3uL (1.8-7.7) Lymphocytes # (Auto) 1.4 x10^3/uL (1.0-4.8) Monocytes # (Auto) 0.4 x10^3/uL (0.0-1.1) Eosinophils # (Auto) 0.1 x10^3/uL (0.0-0.7) Basophils # (Auto) 0.0 x10^3/uL (0.0-0.2) Sodium Level 138 mmol/L (136-145) Potassium Level 3.7 mmol/L (3.5-5.1) Chloride Level 105 mmol/L (98-107) Carbon Dioxide Level 18 mmol/L (21-32) Anion Gap 15 (6-14) Blood Urea Nitrogen 9 mg/dL (7-20) Creatinine 0.6 mg/dL (0.6-1.0) Estimated GFR (Cockcroft-Gault) 101.3 BUN/Creatinine Ratio 15 (6-20) Glucose Level 51 mg/dL (70-99) Calcium Level 8.3 mg/dL (8.5-10.1) Total Bilirubin 0.7 mg/dL (0.2-1.0) Aspartate Amino Transf (AST/SGOT) 23 U/L (15-37) Alanine Aminotransferase (ALT/SGPT) 22 U/L (14-59) Alkaline Phosphatase 78 U/L (46-116) Total Protein 5.7 g/dL (6.4-8.2) Albumin 3.1 g/dL (3.4-5.0) Albumin/Globulin Ratio 1.2 (1.0-1.7) Microbiology 08/06/18 Blood Culture - Preliminary, Resulted NO GROWTH AFTER 1 DAY 08/04/18 Urine Culture - Final, Complete 08/04/18 Urine Culture Result 1 (GILDA) - Final, Complete Medications Current Medications Acetaminophen (Tylenol) 1,000 mg 1X ONCE PO Last administered on 08/04/18at 22: 30; Start 08/04/18 at 20:30; Stop 08/04/18 at 20:31; Status DC Albuterol/ Ipratropium (Duoneb) 3 ml 1X ONCE NEB Last administered on at 20:39; Start 08/04/18 at 20:30; Stop 08/04/18 at 20:31; Status DC Sodium Chloride 1,000 ml @ 1,000 mls/hr 1X ONCE IV Last administered on at 22:30; Start 08/04/18 at 22:00; Stop 08/04/18 at 22:59; Status DC Ceftriaxone Sodium (Rocephin) 1 gm 1X ONCE IVP Last administered on 08/04/18at 22:30; Start 08/04/18 at 22:30; Stop 08/04/18 at 22:31; Status DC Ondansetron HCl (Zofran) 4 mg PRN Q8HRS PRN IV NAUSEA/VOMITING; Start 08/04/18 at 23:00; Stop 08/05/18 at 22:59; Status DC Fentanyl Citrate (Fentanyl 2ml Vial) 50 mcg PRN Q1HR PRN IV PAIN Last administered on 08/05/18at 19:33; Start 08/04/18 at 23:00; Stop 08/05/18 at 22:59 ; Status DC Sodium Chloride 1,000 ml @ 100 mls/hr Q10H IV Last administered on 08/05/18at 19:34; Start 08/04/18 at 23:00; Stop 08/05/18 at 22:59; Status DC Ceftriaxone Sodium (Rocephin) 1 gm Q24H IVP Last administered on 08/05/18at 12: 07; Start 08/05/18 at 12:00; Stop 08/06/18 at 08:57; Status DC Folic Acid (Folic Acid) 1 mg DAILY PO Last administered on 08/07/18at 10:01; Start 08/05/18 at 15:00 Hydrochlorothiazide (Hydrodiuril) 25 mg DAILY PO ; Start 08/05/18 at 15:00 Acetaminophen/ Hydrocodone Bitart (Lortab 5/325) 1 tab PRN Q6HRS PRN PO MODERATE TO SEVERE PAIN Last administered on 08/06/18at 18:33; Start 08/05/18 at 14:00 Acetaminophen/ Hydrocodone Bitart (Lortab 5/325) 1 tab Q6HRS PO Last administered on 08/07/18at 05:17; Start 08/05/18 at 18:00 Metoprolol Succinate (Toprol Xl) 100 mg BID PO ; Start 08/05/18 at 21:00 Levothyroxine Sodium (Synthroid) 50 mcg DAILY06 PO Last administered on at 05:16; Start 08/06/18 at 06:00 Non-Formulary Medication (Methotrexate Sodium (Methotrexate)) 8 tab WEEKLY PO ; Start 08/12/18 at 09:00; Stop 08/12/18 at 09:00; Status DC Verapamil HCl (Calan Sr) 240 mg DAILY PO ; Start 08/05/18 at 15:00 Enoxaparin Sodium (Lovenox 40mg Syringe) 40 mg Q24H SQ ; Start 08/05/18 at 15:00 Hydralazine HCl (Apresoline Inj) 10 mg 1X ONCE IVP Last administered on at 16:04; Start 08/05/18 at 15:30; Stop 08/05/18 at 15:51; Status DC Piperacillin Sod/ Tazobactam Sod (Zosyn Per Pharmacy) 1 each PRN DAILY PRN [facility] SEE COMMENTS; Start 08/06/18 at 08:45 Piperacillin Sod/ Tazobactam Sod 3.375 gm/Sodium Chloride 50 ml @ 100 mls/hr Q6HRS IV Last administered on 08/07/18at 05:17; Start 08/06/18 at 09:30 Vancomycin HCl 1 gm/Sodium Chloride 250 ml @ 250 mls/hr ONCE ONCE IV Last administered on 08/06/18at 10:01; Start 08/06/18 at 09:30; Stop 08/06/18 at 10:29 ; Status DC Vancomycin HCl 250 ml @ 250 mls/hr 1X ONCE IV ; Start 08/06/18 at 09:30; Stop 08/06/18 at 10:29; Status UNV Sodium Chloride 1,000 ml @ 0 mls/hr 1X ONCE IV Last administered on at 14:00; Start 08/06/18 at 14:00; Stop 08/06/18 at 14:01; Status DC Potassium Chloride (Klor-Con) 40 meq 1X ONCE PO ; Start 08/06/18 at 17:30; Stop 08/06/18 at 17:31; Status DC Active Scripts Active [place] 5-325 Tablet (Acetaminophen/Hydrocodone Bitart) 1 Each Tablet 1 Tab PO Q6HRS [place] 5-325 Tablet (Acetaminophen/Hydrocodone Bitart) 1 Each Tablet 1 Tab PO PRN Q6HRS PRN Reported Prednisone 20 Mg Tablet 0.5 Tab PO QID Methotrexate (Methotrexate Sodium) 2.5 Mg Tablet 4 Tab PO WEEKLY Hydrochlorothiazide Tablet (Hydrochlorothiazide) 25 Mg Tablet 25 Mg PO DAILY Metoprolol Succinate ( Xl ) (Metoprolol Succinate) 100 Mg Tab.er.24h 1 Tab PO BID Folic Acid 1 Mg Tablet 1 Tab PO DAILY Verapamil Er (Verapamil Hcl) 240 Mg Cap24h.pel 1 Cap PO DAILY 180 MG Levothyroxine Sodium 50 Mcg Tablet 1 Tab PO DAILY Vitals/I & O Vital Sign - Last 24 Hours 08/06/18 08/06/18 08/06/18 08/06/18 14:00 14:01 14:02 14:20 Pulse 72 B/P (MAP) 91/49 (63) 86/47 (60) 87/48 (61) 104/61 (75) 08/06/18 08/06/18 08/06/18 08/06/18 14:49 15:00 18:33 19:00 Temp 98.1 97.7 98.1 97.7 Pulse 70 83 Resp 18 18 B/P (MAP) 109/53 (71) 109/53 (71) 104/58 (73) Pulse Ox 95 85 O2 Delivery Room Air Room Air 08/06/18 08/06/18 08/06/18 08/06/18 19:33 20:00 23:00 23:34 Temp 97.9 97.9 Pulse 79 Resp 20 16 20 B/P (MAP) 128/67 (87) Pulse Ox 92 O2 Delivery Room Air Room Air 2L prn at bed time Room Air 08/07/18 08/07/18 08/07/18 08/07/18 00:34 03:00 05:17 06:17 Temp 98.2 98.2 Pulse 75 Resp 16 22 20 B/P (MAP) 133/72 (92) Pulse Ox 98 O2 Delivery Room Air Room Air 08/07/18 08/07/18 07:00 11:00 Temp 97.9 97.8 97.9 97.8 Pulse 78 75 Resp 18 18 B/P (MAP) 137/75 (95) 129/67 (87) Pulse Ox 93 97 O2 Delivery Room Air Room Air Intake and Output 08/06/18 08/06/18 08/07/18 14:59 22:59 06:59 Intake Total 0 ml 0 ml 490 ml Balance 0 ml 0 ml 490 ml EDWARD SAGASTUME III DO Aug 07, 2018 11:43
--- NOTE | 2018-08-07 12:01 | PDOC ---
Infectious Disease Note Subjective Subjective Son as personal development coach [place] dizzy and nauseous earlier c/o left leg pain No fevers or chills Vital Sign Vital Signs Vital Signs Date Time Temp Pulse Resp B/P (MAP) Pulse Ox O2 Delivery O2 Flow Rate FiO2 08/07/18 11:00 97.8 75 18 129/67 (87) 97 Room Air 97.8 08/06/18 11:00 2.0 Labs Lab Laboratory Tests Test 08/06/18 15:40 08/07/18 04:50 Lactic Acid Level 0.8 mmol/L (0.4-2.0) White Blood Count 4.9 x10^3/uL (4.0-11.0) Red Blood Count 4.41 x10^6/uL (3.50-5.40) Hemoglobin 11.6 g/dL (12.0-15.5) Hematocrit 35.7 % (36.0-47.0) Mean Corpuscular Volume 81 fL (79-100) Mean Corpuscular Hemoglobin 26 pg (25-35) Mean Corpuscular Hemoglobin Concent 33 g/dL (31-37) Red Cell Distribution Width 18.9 % (11.5-14.5) Platelet Count 123 x10^3/uL (140-400) Neutrophils (%) (Auto) 62 % (31-73) Lymphocytes (%) (Auto) 28 % (24-48) Monocytes (%) (Auto) 9 % (0-9) Eosinophils (%) (Auto) 1 % (0-3) Basophils (%) (Auto) 0 % (0-3) Neutrophils # (Auto) 3.1 x10^3uL (1.8-7.7) Lymphocytes # (Auto) 1.4 x10^3/uL (1.0-4.8) Monocytes # (Auto) 0.4 x10^3/uL (0.0-1.1) Eosinophils # (Auto) 0.1 x10^3/uL (0.0-0.7) Basophils # (Auto) 0.0 x10^3/uL (0.0-0.2) Sodium Level 138 mmol/L (136-145) Potassium Level 3.7 mmol/L (3.5-5.1) Chloride Level 105 mmol/L (98-107) Carbon Dioxide Level 18 mmol/L (21-32) Anion Gap 15 (6-14) Blood Urea Nitrogen 9 mg/dL (7-20) Creatinine 0.6 mg/dL (0.6-1.0) Estimated GFR (Cockcroft-Gault) 101.3 BUN/Creatinine Ratio 15 (6-20) Glucose Level 51 mg/dL (70-99) Calcium Level 8.3 mg/dL (8.5-10.1) Total Bilirubin 0.7 mg/dL (0.2-1.0) Aspartate Amino Transf (AST/SGOT) 23 U/L (15-37) Alanine Aminotransferase (ALT/SGPT) 22 U/L (14-59) Alkaline Phosphatase 78 U/L (46-116) Total Protein 5.7 g/dL (6.4-8.2) Albumin 3.1 g/dL (3.4-5.0) Albumin/Globulin Ratio 1.2 (1.0-1.7) Lipase 101 U/L (73-393) Impression: No evidence of deep venous thrombosis mildly lower extremity Micro URINE CULTURE RES 1 Final Comment Culture shows less than 10,000 colony forming units of bacteria per milliliter of urine. This colony count is not generally considered to be clinically significant. 08/04. BLOOD CULTURE Final GRAM POSITIVE COCCI IN CLUSTERS, SUGGESTIVE OF STAPH, IN 1 OF 4 BOTTLES, TWO SETS DRAWN. 08/06. BLOOD CULTURE Preliminary NO GROWTH AFTER 1 DAY Objective Assessment GPC bacteremia (1 of 4 bottles) from 08/04 Febrile illness, etiology unclear, better MGUS, on immunosuppression with injectable chemotherapeutic agent on Thursday and Thursday by Dr. William. Immunocompromised, on prednisone and methotrexate. Bone pain. Bilateral foot callus. Leukopenia. better Pyruia (+ squam cells) Plan Plan of Care Rocephin switch to Zosyn 08/06 by PCP vanco one dose 08/06 GPC ID/susceptibilities pending Monitor WBC/temp/ renal function D/w son a little tight in the legs for over a month but has been ambulating Wean abx soon Attending Co-Sign Attending Co-Sign The patient was seen and interviewed as well as examined at the bedside. The chart was reviewed. The case was discussed. Agree with the plan of care. SUDHIR DEVI APRN Aug 07, 2018 12:01 GITA OMALLEY MD Aug 07, 2018 15:11
[2018-08-07] MEDS: ENOXAPARIN 40 MG/0.4 ML SYRINGE. SQ SCH (17:50)
[2018-08-08] VITALS (7 sets, daily range): BP systolic 102–168; BP diastolic 63–94
[2018-08-08 05:35] LABS: BASO % 0 % (0-3); EOS # 0.1 x10^3/uL (0.0-0.7); EOS % 3 % (0-3); HEMATOCRIT 32.8 % (36.0-47.0); HEMOGLOBIN 10.9 g/dL (12.0-15.5); LYMPH # 1.4 x10^3/uL (1.0-4.8); LYMPH % 39 % (24-48); MEAN CORPUSCULAR HEMOGLOBIN 27 pg (25-35); MEAN CORPUSCULAR HGB CONC 33 g/dL (31-37); MEAN CORPUSCULAR VOLUME 80 fL (79-100); MONO # 0.4 x10^3/uL (0.0-1.1); MONO % 12 % (0-9); NEUT # 1.6 x10^3uL (1.8-7.7); NEUT % 45 % (31-73); PLATELET COUNT 118 x10^3/uL (140-400); RED CELL DISTRIBUTION WIDTH 18.8 % (11.5-14.5); WHITE BLOOD COUNT 3.6 x10^3/uL (4.0-11.0)
[2018-08-08] MEDS: LEVOTHYROXINE 50 MCG TABLET PO SCH (05:39)
[2018-08-08] MEDS: HYDROcodone/APAP 5/325MG 1 TAB TABLET PO SCH ×4 (05:39→23:57)
[2018-08-08] MEDS: PIPERACILLIN/TAZOBACTAM 3.375 GM in IV NORMAL SALINE 50ML 50 ML IV SCH ×4 (05:40→23:56)
[2018-08-08 05:55] LABS: CALCIUM 8.1 mg/dL (8.5-10.1); CREATININE 0.6 mg/dL (0.6-1.0); GFR 101.3; POTASSIUM 3.3 mmol/L (3.5-5.1)
[2018-08-08] MEDS: VERAPAMIL SR 120 MG TABLET.ER. PO SCH (09:00)
[2018-08-08] MEDS: METOPROLOL SUCC 24HR ER 100 MG TAB.ER.24H. PO SCH (09:00)
--- NOTE | 2018-08-08 12:46 | PDOC ---
PROGRESS NOTES Chief Complaint Chief Complaint Abdominal pain with leg pain and cough History of Present Illness History of Present Illness The patient was walking the halls and sitting up in bed today. She looks very well. Her son was present in the room today. Her abdominal pain is much better today. She feels ready to go home. Vitals Vitals Vital Signs Date Time Temp Pulse Resp B/P (MAP) Pulse Ox O2 Delivery O2 Flow Rate FiO2 08/08/18 11:00 97.6 61 144/87 (106) 96 Room Air 2.0 97.6 08/08/18 07:00 20 Physical Exam General: Alert, Oriented X3, Cooperative, No acute distress Heart: Regular rate, Normal S1, Normal S2, No murmurs Lungs: Clear (No wheezes, rales, or rhonchi) Abdomen: Soft, No tenderness, No masses Extremities: No edema, Normal pulses, No tenderness/swelling Skin: No rashes, No breakdown, No significant lesion Labs LABS Laboratory Tests Test 08/08/18 04:25 White Blood Count 3.6 x10^3/uL (4.0-11.0) Red Blood Count 4.10 x10^6/uL (3.50-5.40) Hemoglobin 10.9 g/dL (12.0-15.5) Hematocrit 32.8 % (36.0-47.0) Mean Corpuscular Volume 80 fL (79-100) Mean Corpuscular Hemoglobin 27 pg (25-35) Mean Corpuscular Hemoglobin Concent 33 g/dL (31-37) Red Cell Distribution Width 18.8 % (11.5-14.5) Platelet Count 118 x10^3/uL (140-400) Neutrophils (%) (Auto) 45 % (31-73) Lymphocytes (%) (Auto) 39 % (24-48) Monocytes (%) (Auto) 12 % (0-9) Eosinophils (%) (Auto) 3 % (0-3) Basophils (%) (Auto) 0 % (0-3) Neutrophils # (Auto) 1.6 x10^3uL (1.8-7.7) Lymphocytes # (Auto) 1.4 x10^3/uL (1.0-4.8) Monocytes # (Auto) 0.4 x10^3/uL (0.0-1.1) Eosinophils # (Auto) 0.1 x10^3/uL (0.0-0.7) Basophils # (Auto) 0.0 x10^3/uL (0.0-0.2) Sodium Level 141 mmol/L (136-145) Potassium Level 3.3 mmol/L (3.5-5.1) Chloride Level 107 mmol/L (98-107) Carbon Dioxide Level 23 mmol/L (21-32) Anion Gap 11 (6-14) Blood Urea Nitrogen 6 mg/dL (7-20) Creatinine 0.6 mg/dL (0.6-1.0) Estimated GFR (Cockcroft-Gault) 101.3 Glucose Level 83 mg/dL (70-99) Calcium Level 8.1 mg/dL (8.5-10.1) Review of Systems Review of Systems Patient denies fevers, chills, N/V, CP, SOB, and diarrhea Assessment and Plan Assessmemt and Plan Assessment: UTI Pancreatitis, MILD, lipase resolved 495->101 Multiple myeloma Immunocompromised on prednisone Bone pain Plan: Zosyn Stop HCTZ for low BP ID consult- appreciate input Heme onc consult Advance diet as tolerated PO KCl (3.3 on 08/08) Continue home meds F/u labs PT/OT DVT prophylaxis Hope to discharge today if OK with infectious disease Comment Review of Relevant I have reviewed the following items anai (where applicable) has been applied. Labs Laboratory Tests Test 08/06/18 15:40 08/07/18 04:50 08/08/18 04:25 Lactic Acid Level 0.8 mmol/L (0.4-2.0) White Blood Count 4.9 x10^3/uL (4.0-11.0) 3.6 x10^3/uL (4.0-11.0) Red Blood Count 4.41 x10^6/uL (3.50-5.40) 4.10 x10^6/uL (3.50-5.40) Hemoglobin 11.6 g/dL (12.0-15.5) 10.9 g/dL (12.0-15.5) Hematocrit 35.7 % (36.0-47.0) 32.8 % (36.0-47.0) Mean Corpuscular Volume 81 fL (79-100) 80 fL (79-100) Mean Corpuscular Hemoglobin 26 pg (25-35) 27 pg (25-35) Mean Corpuscular Hemoglobin Concent 33 g/dL (31-37) 33 g/dL (31-37) Red Cell Distribution Width 18.9 % (11.5-14.5) 18.8 % (11.5-14.5) Platelet Count 123 x10^3/uL (140-400) 118 x10^3/uL (140-400) Neutrophils (%) (Auto) 62 % (31-73) 45 % (31-73) Lymphocytes (%) (Auto) 28 % (24-48) 39 % (24-48) Monocytes (%) (Auto) 9 % (0-9) 12 % (0-9) Eosinophils (%) (Auto) 1 % (0-3) 3 % (0-3) Basophils (%) (Auto) 0 % (0-3) 0 % (0-3) Neutrophils # (Auto) 3.1 x10^3uL (1.8-7.7) 1.6 x10^3uL (1.8-7.7) Lymphocytes # (Auto) 1.4 x10^3/uL (1.0-4.8) 1.4 x10^3/uL (1.0-4.8) Monocytes # (Auto) 0.4 x10^3/uL (0.0-1.1) 0.4 x10^3/uL (0.0-1.1) Eosinophils # (Auto) 0.1 x10^3/uL (0.0-0.7) 0.1 x10^3/uL (0.0-0.7) Basophils # (Auto) 0.0 x10^3/uL (0.0-0.2) 0.0 x10^3/uL (0.0-0.2) Sodium Level 138 mmol/L (136-145) 141 mmol/L (136-145) Potassium Level 3.7 mmol/L (3.5-5.1) 3.3 mmol/L (3.5-5.1) Chloride Level 105 mmol/L (98-107) 107 mmol/L (98-107) Carbon Dioxide Level 18 mmol/L (21-32) 23 mmol/L (21-32) Anion Gap 15 (6-14) 11 (6-14) Blood Urea Nitrogen 9 mg/dL (7-20) 6 mg/dL (7-20) Creatinine 0.6 mg/dL (0.6-1.0) 0.6 mg/dL (0.6-1.0) Estimated GFR (Cockcroft-Gault) 101.3 101.3 BUN/Creatinine Ratio 15 (6-20) Glucose Level 51 mg/dL (70-99) 83 mg/dL (70-99) Calcium Level 8.3 mg/dL (8.5-10.1) 8.1 mg/dL (8.5-10.1) Total Bilirubin 0.7 mg/dL (0.2-1.0) Aspartate Amino Transf (AST/SGOT) 23 U/L (15-37) Alanine Aminotransferase (ALT/SGPT) 22 U/L (14-59) Alkaline Phosphatase 78 U/L (46-116) Total Protein 5.7 g/dL (6.4-8.2) Albumin 3.1 g/dL (3.4-5.0) Albumin/Globulin Ratio 1.2 (1.0-1.7) Lipase 101 U/L (73-393) Laboratory Tests Test 08/08/18 04:25 White Blood Count 3.6 x10^3/uL (4.0-11.0) Red Blood Count 4.10 x10^6/uL (3.50-5.40) Hemoglobin 10.9 g/dL (12.0-15.5) Hematocrit 32.8 % (36.0-47.0) Mean Corpuscular Volume 80 fL (79-100) Mean Corpuscular Hemoglobin 27 pg (25-35) Mean Corpuscular Hemoglobin Concent 33 g/dL (31-37) Red Cell Distribution Width 18.8 % (11.5-14.5) Platelet Count 118 x10^3/uL (140-400) Neutrophils (%) (Auto) 45 % (31-73) Lymphocytes (%) (Auto) 39 % (24-48) Monocytes (%) (Auto) 12 % (0-9) Eosinophils (%) (Auto) 3 % (0-3) Basophils (%) (Auto) 0 % (0-3) Neutrophils # (Auto) 1.6 x10^3uL (1.8-7.7) Lymphocytes # (Auto) 1.4 x10^3/uL (1.0-4.8) Monocytes # (Auto) 0.4 x10^3/uL (0.0-1.1) Eosinophils # (Auto) 0.1 x10^3/uL (0.0-0.7) Basophils # (Auto) 0.0 x10^3/uL (0.0-0.2) Sodium Level 141 mmol/L (136-145) Potassium Level 3.3 mmol/L (3.5-5.1) Chloride Level 107 mmol/L (98-107) Carbon Dioxide Level 23 mmol/L (21-32) Anion Gap 11 (6-14) Blood Urea Nitrogen 6 mg/dL (7-20) Creatinine 0.6 mg/dL (0.6-1.0) Estimated GFR (Cockcroft-Gault) 101.3 Glucose Level 83 mg/dL (70-99) Calcium Level 8.1 mg/dL (8.5-10.1) Microbiology 08/06/18 Blood Culture - Preliminary, Resulted NO GROWTH AFTER 2 DAYS 08/04/18 Urine Culture - Final, Complete 08/04/18 Urine Culture Result 1 (GILDA) - Final, Complete Medications Current Medications Acetaminophen (Tylenol) 1,000 mg 1X ONCE PO Last administered on 08/04/18at 22: 30; Start 08/04/18 at 20:30; Stop 08/04/18 at 20:31; Status DC Albuterol/ Ipratropium (Duoneb) 3 ml 1X ONCE NEB Last administered on at 20:39; Start 08/04/18 at 20:30; Stop 08/04/18 at 20:31; Status DC Sodium Chloride 1,000 ml @ 1,000 mls/hr 1X ONCE IV Last administered on at 22:30; Start 08/04/18 at 22:00; Stop 08/04/18 at 22:59; Status DC Ceftriaxone Sodium (Rocephin) 1 gm 1X ONCE IVP Last administered on 08/04/18at 22:30; Start 08/04/18 at 22:30; Stop 08/04/18 at 22:31; Status DC Ondansetron HCl (Zofran) 4 mg PRN Q8HRS PRN IV NAUSEA/VOMITING; Start 08/04/18 at 23:00; Stop 08/05/18 at 22:59; Status DC Fentanyl Citrate (Fentanyl 2ml Vial) 50 mcg PRN Q1HR PRN IV PAIN Last administered on 08/05/18 19:33; Start 08/04/18 at 23:00; Stop 08/05/18 at 22:59 ; Status DC Sodium Chloride 1,000 ml @ 100 mls/hr Q10H IV Last administered on 08/05/18at 19:34; Start 08/04/18 at 23:00; Stop 08/05/18 at 22:59; Status DC Ceftriaxone Sodium (Rocephin) 1 gm Q24H IVP Last administered on 08/05/18at 12: 07; Start 08/05/18 at 12:00; Stop 08/06/18 at 08:57; Status DC Folic Acid (Folic Acid) 1 mg DAILY PO Last administered on 08/07/18at 10:01; Start 08/05/18 at 15:00 Hydrochlorothiazide (Hydrodiuril) 25 mg DAILY PO ; Start 08/05/18 at 15:00 Acetaminophen/ Hydrocodone Bitart (Lortab 5/325) 1 tab PRN Q6HRS PRN PO MODERATE TO SEVERE PAIN Last administered on 08/06/18at 18:33; Start 08/05/18 at 14:00 Acetaminophen/ Hydrocodone Bitart (Lortab 5/325) 1 tab Q6HRS PO Last administered on 08/08/18at 05:39; Start 08/05/18 at 18:00 Metoprolol Succinate (Toprol Xl) 100 mg BID PO Last administered on 08/07/18at 20:56; Start 08/05/18 at 21:00 Levothyroxine Sodium (Synthroid) 50 mcg DAILY06 PO Last administered on at 05:39; Start 08/06/18 at 06:00 Non-Formulary Medication (Methotrexate Sodium (Methotrexate)) 8 tab WEEKLY PO ; Start 08/12/18 at 09:00; Stop 08/12/18 at 09:00; Status DC Verapamil HCl (Calan Sr) 240 mg DAILY PO ; Start 08/05/18 at 15:00 Enoxaparin Sodium (Lovenox 40mg Syringe) 40 mg Q24H SQ Last administered on at 17:50; Start 08/05/18 at 15:00 Hydralazine HCl (Apresoline Inj) 10 mg 1X ONCE IVP Last administered on at 16:04; Start 08/05/18 at 15:30; Stop 08/05/18 at 15:51; Status DC Piperacillin Sod/ Tazobactam Sod (Zosyn Per Pharmacy) 1 each PRN DAILY PRN MC SEE COMMENTS; Start 08/06/18 at 08:45 Piperacillin Sod/ Tazobactam Sod 3.375 gm/Sodium Chloride 50 ml @ 100 mls/hr Q6HRS IV Last administered on 08/08/18at 05:40; Start 08/06/18 at 09:30 Vancomycin HCl 1 gm/Sodium Chloride 250 ml @ 250 mls/hr ONCE ONCE IV Last administered on 08/06/18at 10:01; Start 08/06/18 at 09:30; Stop 08/06/18 at 10:29 ; Status DC Vancomycin HCl 250 ml @ 250 mls/hr 1X ONCE IV ; Start 08/06/18 at 09:30; Stop 08/06/18 at 10:29; Status UNV Sodium Chloride 1,000 ml @ 0 mls/hr 1X ONCE IV Last administered on at 14:00; Start 08/06/18 at 14:00; Stop 08/06/18 at 14:01; Status DC Potassium Chloride (Klor-Con) 40 meq 1X ONCE PO ; Start 08/06/18 at 17:30; Stop 08/06/18 at 17:31; Status DC Active Scripts Active [place] 5-325 Tablet (Acetaminophen/Hydrocodone Bitart) 1 Each Tablet 1 Tab PO Q6HRS [place] 5-325 Tablet (Acetaminophen/Hydrocodone Bitart) 1 Each Tablet 1 Tab PO PRN Q6HRS PRN Reported Prednisone 20 Mg Tablet 0.5 Tab PO QID Methotrexate (Methotrexate Sodium) 2.5 Mg Tablet 4 Tab PO WEEKLY Hydrochlorothiazide Tablet (Hydrochlorothiazide) 25 Mg Tablet 25 Mg PO DAILY Metoprolol Succinate ( Xl ) (Metoprolol Succinate) 100 Mg Tab.er.24h 1 Tab PO BID Folic Acid 1 Mg Tablet 1 Tab PO DAILY Verapamil Er (Verapamil Hcl) 240 Mg Cap24h.pel 1 Cap PO DAILY 180 MG Levothyroxine Sodium 50 Mcg Tablet 1 Tab PO DAILY Vitals/I & O Vital Sign - Last 24 Hours 08/07/18 08/07/18 08/07/18 08/07/18 12:49 13:49 15:00 17:49 Temp 97.7 97.7 Pulse 71 Resp 20 20 18 20 B/P (MAP) 153/82 (105) Pulse Ox 97 97 97 O2 Delivery Room Air Room Air Room Air 08/07/18 08/07/18 08/07/18 08/07/18 19:00 20:07 20:56 22:33 Temp 98.0 99.0 98.0 99.0 Pulse 74 74 70 Resp 18 18 B/P (MAP) 112/63 (79) 112/63 86/52 (63) Pulse Ox 94 93 O2 Delivery Room Air Room Air Room Air 08/07/18 08/07/18 08/08/18 08/08/18 23:00 23:54 03:00 05:39 Temp 98.3 98.3 Pulse 71 67 Resp 18 B/P (MAP) 98/62 (74) 102/63 (76) Pulse Ox 93 93 93 O2 Delivery Room Air Room Air Room Air O2 Flow Rate 2.0 2.0 08/08/18 08/08/18 08/08/18 06:39 07:00 11:00 Temp 97.6 97.6 97.6 97.6 Pulse 63 61 Resp 20 B/P (MAP) 123/68 (86) 144/87 (106) Pulse Ox 93 94 96 O2 Delivery Room Air Room Air Room Air O2 Flow Rate 2.0 2.0 2.0 Intake and Output 08/07/18 08/07/18 08/08/18 15:00 23:00 07:00 Intake Total 0 ml 180 ml 130 ml Balance 0 ml 180 ml 130 ml EDWARD SAGASTUME III DO Aug 08, 2018 12:46
[2018-08-08] MEDS ORDERED: POTASSIUM CHLORIDE 20 MEQ TABLET.ER. PO ONE (13:00)
[2018-08-08] MEDS: ENOXAPARIN 40 MG/0.4 ML SYRINGE. SQ SCH (14:40)
[2018-08-08] MEDS: FOLIC ACID 1 MG TABLET. PO SCH (14:47)
--- NOTE | 2018-08-08 19:16 | DS ---
DATE OF DISCHARGE: 08/08/2018 ADMISSION DIAGNOSES: Pancreatitis, urinary tract infection, history of multiple myeloma, receiving chemotherapy. DISCHARGE DIAGNOSES: Resolving pancreatitis, resolving urinary tract infection, Gram-positive bacteremia (she had 1/4 bottles, we think that was probably contaminant). CONSULTS: Infectious Disease and Heme/Onc. PROCEDURES: None. HOSPITAL COURSE: The patient is a pleasant elderly female who has multiple myeloma. She is undergoing chemotherapy. She presented with pancreatitis with abdominal pain. She also had a UTI. Her lipase was 495. Her lipase has now resolved down to 100. Clinically, she looks great. She had 1/4 bottles grow gram-positive cocci, suspect that was contaminant. We do have Infectious Disease following as well. I saw and examined her this morning. Heart tones were normal. Her lungs were clear. She was smiling. She looked great. She had no edema. She was up walking with therapy even. Overall, she looks like she is at her baseline. We plan to discharge with close outpatient followup if okay with consultants. DISPOSITION: Home. ACTIVITY: As tolerated. DIET: Low sodium. MEDICATIONS: Please see the MRAD. We resumed her home meds. TOTAL TIME: 34 minutes. EDWARD SAGASTUME DO DR: CASSANDRA/alexis JOB#: [id number] / [id number]
[2018-08-08] MEDS: METOPROLOL TART IMMED RELEASE 25 MG TABLET. PO SCH (20:37)
[2018-08-08] MEDS: HYDROcodone/APAP 5/325MG 1 TAB TABLET PO PRN (20:49)
[2018-08-09 02:56] VITALS: BP 112/70
[2018-08-09] MEDS: LEVOTHYROXINE 50 MCG TABLET PO SCH (06:04)
[2018-08-09] MEDS: HYDROcodone/APAP 5/325MG 1 TAB TABLET PO SCH ×2 (06:04→12:32)
[2018-08-09] MEDS: PIPERACILLIN/TAZOBACTAM 3.375 GM in IV NORMAL SALINE 50ML 50 ML IV SCH (06:05)
[2018-08-09 07:00] VITALS: BP 132/73
[2018-08-09] MEDS: FOLIC ACID 1 MG TABLET. PO SCH (08:03)
[2018-08-09] MEDS: METOPROLOL TART IMMED RELEASE 25 MG TABLET. PO SCH (08:03)
--- NOTE | 2018-08-09 09:19 | PDOC ---
SUBJECTIVE Subjective S: Feeling better, denies any abdominal pain this morning O: Physical exam: Gen.: Thin elderly female, resting in bed Psychiatric: Pleasant mood and affect Labs: Lipase was increased back down to normal on last check Assessment and Plan: 1. Stage I multiple myeloma, IgA lambda type, diagnosed in 04/2018. She is currently on cycle #4 of chemotherapy with Velcade and dexamethasone. chemo on hold w/ current admit, she will follow up as outpatient for continuation of chemotherapy after f/u post dc. 2. Urinary tract infection. per primary, <10,000 CFU 3. cytopenias, mild, due to chemotherapy. Thank you kindly and please do not hesitate to call with questions. OBJECTIVE Vital Signs Vital Signs Date Time Temp Pulse Resp B/P (MAP) Pulse Ox O2 Delivery O2 Flow Rate FiO2 08/09/18 08:03 72 132/73 08/09/18 08:00 Nasal Cannula 2.0 08/09/18 07:00 97.8 72 16 132/73 (92) 97 Nasal Cannula 2.0 97.8 08/09/18 06:04 16 Room Air 08/09/18 02:56 98.2 73 18 112/70 (84) 95 Room Air 98.2 08/09/18 01:00 16 Room Air 08/08/18 23:57 18 Room Air 08/08/18 22:42 97.6 72 18 162/92 (115) 92 Room Air 97.6 08/08/18 21:49 16 08/08/18 20:49 16 Room Air 08/08/18 20:37 66 152/89 08/08/18 19:50 Room Air 2.0 08/08/18 19:50 Room Air 08/08/18 19:00 98.0 66 18 152/89 (110) 94 Room Air 98.0 08/08/18 18:41 94 08/08/18 18:00 68 18 166/94 (118) Room Air 08/08/18 17:41 20 94 Room Air 08/08/18 15:00 97.6 71 16 168/94 (118) 94 Room Air 2.0 97.6 08/08/18 14:40 18 96 Room Air 2.0 08/08/18 11:00 97.6 61 144/87 (106) 96 Room Air 2.0 97.6 I & O Intake and Output 08/09/18 07:00 Intake Total 410 ml Balance 410 ml Intake Oral 360 ml IV Total 50 ml # Voids 3 MICHELLE KIRBY MD Aug 09, 2018 09:19
[2018-08-09 09:46] LABS: BASO % 0 % (0-3); EOS # 0.1 x10^3/uL (0.0-0.7); EOS % 2 % (0-3); HEMATOCRIT 33.9 % (36.0-47.0); HEMOGLOBIN 10.9 g/dL (12.0-15.5); LYMPH # 1.1 x10^3/uL (1.0-4.8); LYMPH % 38 % (24-48); MEAN CORPUSCULAR HEMOGLOBIN 26 pg (25-35); MEAN CORPUSCULAR HGB CONC 32 g/dL (31-37); MEAN CORPUSCULAR VOLUME 80 fL (79-100); MONO # 0.4 x10^3/uL (0.0-1.1); MONO % 15 % (0-9); NEUT # 1.3 x10^3uL (1.8-7.7); NEUT % 45 % (31-73); PLATELET COUNT 142 x10^3/uL (140-400); RED BLOOD COUNT 4.22 x10^6/uL (3.50-5.40); WHITE BLOOD COUNT 2.9 x10^3/uL (4.0-11.0)
[2018-08-09 10:05] LABS: CALCIUM 8.4 mg/dL (8.5-10.1); CREATININE 0.6 mg/dL (0.6-1.0); GFR 101.3; POTASSIUM 3.5 mmol/L (3.5-5.1)
[2018-08-09 11:00] VITALS: BP 179/96
--- NOTE | 2018-08-09 11:18 | PDOC ---
Infectious Disease Note Subjective Subjective Son as front desk administrator better Left leg pain better No fevers or chills ROS ROS o/w neg Vital Sign Vital Signs Vital Signs Date Time Temp Pulse Resp B/P (MAP) Pulse Ox O2 Delivery O2 Flow Rate FiO2 08/09/18 08:03 72 132/73 08/09/18 08:00 Nasal Cannula 2.0 08/09/18 07:00 97.8 16 97 97.8 Physical Exam PHYSICAL EXAM GENERAL: Alert, oriented x 3 female, lying in bed comfortably, in no acute distress. Son at bedside. HEENT: Normocephalic, atraumatic, anicteric. Dentition poor. No thrush. Oral mucosa moist. NECK: Supple. No JVD. LUNGS: Clear bilaterally after cough. No wheezing. CARDIOVASCULAR: S1, S2. No gallops, murmurs or rubs. ABDOMEN: Mildly distended. Mild tenderness present, diffuse. No rebound, no guarding. Bowel sounds present. BACK: Reveals normal curvature. No CVA tenderness. SKIN: Warm, dry, no generalized rash. NEUROLOGIC: Alert and oriented x 3, grossly nonfocal. PSYCHIATRIC: Cooperative, appropriate mood and affect. EXTREMITIES: No edema, no cyanosis, no clubbing. Callus is present on both the feet. No skin breakdown. No evidence of secondary bacterial infection. Labs Lab Laboratory Tests Test 08/09/18 08:55 White Blood Count 2.9 x10^3/uL (4.0-11.0) Red Blood Count 4.22 x10^6/uL (3.50-5.40) Hemoglobin 10.9 g/dL (12.0-15.5) Hematocrit 33.9 % (36.0-47.0) Mean Corpuscular Volume 80 fL (79-100) Mean Corpuscular Hemoglobin 26 pg (25-35) Mean Corpuscular Hemoglobin Concent 32 g/dL (31-37) Red Cell Distribution Width 19.0 % (11.5-14.5) Platelet Count 142 x10^3/uL (140-400) Neutrophils (%) (Auto) 45 % (31-73) Lymphocytes (%) (Auto) 38 % (24-48) Monocytes (%) (Auto) 15 % (0-9) Eosinophils (%) (Auto) 2 % (0-3) Basophils (%) (Auto) 0 % (0-3) Neutrophils # (Auto) 1.3 x10^3uL (1.8-7.7) Lymphocytes # (Auto) 1.1 x10^3/uL (1.0-4.8) Monocytes # (Auto) 0.4 x10^3/uL (0.0-1.1) Eosinophils # (Auto) 0.1 x10^3/uL (0.0-0.7) Basophils # (Auto) 0.0 x10^3/uL (0.0-0.2) Sodium Level 140 mmol/L (136-145) Potassium Level 3.5 mmol/L (3.5-5.1) Chloride Level 105 mmol/L (98-107) Carbon Dioxide Level 26 mmol/L (21-32) Anion Gap 9 (6-14) Blood Urea Nitrogen 5 mg/dL (7-20) Creatinine 0.6 mg/dL (0.6-1.0) Estimated GFR (Cockcroft-Gault) 101.3 Glucose Level 130 mg/dL (70-99) Calcium Level 8.4 mg/dL (8.5-10.1) Micro Microbiology 08/06/18 Blood Culture - Preliminary, Resulted NO GROWTH AFTER 3 DAYS 08/04/18 Urine Culture - Final, Complete 08/04/18 Urine Culture Result 1 (GILDA) - Final, Complete Objective Assessment GPC bacteremia (1 of 4 bottles) from 08/04 - d/w LAb nan - no ID so leonel contamination Febrile illness, etiology unclear, better MGUS, on immunosuppression with injectable chemotherapeutic agent on Thursday and Thursday by Dr. William. Immunocompromised, on prednisone and methotrexate. Bone pain. Bilateral foot callus. Leukopenia. better Pyruia (+ squam cells) Plan Plan of Care D/c Zosyn home on Augmentin 500 mg po BID for 5 days D/w GITA Friedman MD Aug 09, 2018 11:18
--- NOTE | 2018-08-09 11:27 | PDOC ---
PROGRESS NOTES Chief Complaint Chief Complaint Abdominal pain with leg pain and cough History of Present Illness History of Present Illness The patient was sitting up in bed today. She looks very well. A new loved one was present in her room today but he does not speak Romanian. She feels ready to go home. Vitals Vitals Vital Signs Date Time Temp Pulse Resp B/P (MAP) Pulse Ox O2 Delivery O2 Flow Rate FiO2 08/09/18 08:03 72 132/73 08/09/18 08:00 Nasal Cannula 2.0 08/09/18 07:00 97.8 16 97 97.8 Physical Exam General: Alert, Oriented X3, Cooperative, No acute distress Heart: Regular rate, Normal S1, Normal S2, No murmurs Lungs: Clear (No wheezes, rales, or rhonchi) Abdomen: Soft, No tenderness, No masses Extremities: No edema, Normal pulses, No tenderness/swelling Skin: No rashes, No breakdown, No significant lesion Labs LABS Laboratory Tests Test 08/09/18 08:55 White Blood Count 2.9 x10^3/uL (4.0-11.0) Red Blood Count 4.22 x10^6/uL (3.50-5.40) Hemoglobin 10.9 g/dL (12.0-15.5) Hematocrit 33.9 % (36.0-47.0) Mean Corpuscular Volume 80 fL (79-100) Mean Corpuscular Hemoglobin 26 pg (25-35) Mean Corpuscular Hemoglobin Concent 32 g/dL (31-37) Red Cell Distribution Width 19.0 % (11.5-14.5) Platelet Count 142 x10^3/uL (140-400) Neutrophils (%) (Auto) 45 % (31-73) Lymphocytes (%) (Auto) 38 % (24-48) Monocytes (%) (Auto) 15 % (0-9) Eosinophils (%) (Auto) 2 % (0-3) Basophils (%) (Auto) 0 % (0-3) Neutrophils # (Auto) 1.3 x10^3uL (1.8-7.7) Lymphocytes # (Auto) 1.1 x10^3/uL (1.0-4.8) Monocytes # (Auto) 0.4 x10^3/uL (0.0-1.1) Eosinophils # (Auto) 0.1 x10^3/uL (0.0-0.7) Basophils # (Auto) 0.0 x10^3/uL (0.0-0.2) Sodium Level 140 mmol/L (136-145) Potassium Level 3.5 mmol/L (3.5-5.1) Chloride Level 105 mmol/L (98-107) Carbon Dioxide Level 26 mmol/L (21-32) Anion Gap 9 (6-14) Blood Urea Nitrogen 5 mg/dL (7-20) Creatinine 0.6 mg/dL (0.6-1.0) Estimated GFR (Cockcroft-Gault) 101.3 Glucose Level 130 mg/dL (70-99) Calcium Level 8.4 mg/dL (8.5-10.1) Review of Systems Review of Systems Patient denies fevers, chills, N/V, CP, SOB, and diarrhea. Assessment and Plan Assessmemt and Plan Assessment: UTI Pancreatitis, MILD, lipase resolved 495->101 Multiple myeloma Immunocompromised on prednisone Bone pain Plan: Zosyn ID consult- appreciate input Heme onc consult Continue home meds F/u labs PT/OT DVT prophylaxis Hope to discharge today if OK with infectious disease Comment Review of Relevant I have reviewed the following items anai (where applicable) has been applied. Labs Laboratory Tests Test 08/08/18 04:25 08/09/18 08:55 White Blood Count 3.6 x10^3/uL (4.0-11.0) 2.9 x10^3/uL (4.0-11.0) Red Blood Count 4.10 x10^6/uL (3.50-5.40) 4.22 x10^6/uL (3.50-5.40) Hemoglobin 10.9 g/dL (12.0-15.5) 10.9 g/dL (12.0-15.5) Hematocrit 32.8 % (36.0-47.0) 33.9 % (36.0-47.0) Mean Corpuscular Volume 80 fL (79-100) 80 fL (79-100) Mean Corpuscular Hemoglobin 27 pg (25-35) 26 pg (25-35) Mean Corpuscular Hemoglobin Concent 33 g/dL (31-37) 32 g/dL (31-37) Red Cell Distribution Width 18.8 % (11.5-14.5) 19.0 % (11.5-14.5) Platelet Count 118 x10^3/uL (140-400) 142 x10^3/uL (140-400) Neutrophils (%) (Auto) 45 % (31-73) 45 % (31-73) Lymphocytes (%) (Auto) 39 % (24-48) 38 % (24-48) Monocytes (%) (Auto) 12 % (0-9) 15 % (0-9) Eosinophils (%) (Auto) 3 % (0-3) 2 % (0-3) Basophils (%) (Auto) 0 % (0-3) 0 % (0-3) Neutrophils # (Auto) 1.6 x10^3uL (1.8-7.7) 1.3 x10^3uL (1.8-7.7) Lymphocytes # (Auto) 1.4 x10^3/uL (1.0-4.8) 1.1 x10^3/uL (1.0-4.8) Monocytes # (Auto) 0.4 x10^3/uL (0.0-1.1) 0.4 x10^3/uL (0.0-1.1) Eosinophils # (Auto) 0.1 x10^3/uL (0.0-0.7) 0.1 x10^3/uL (0.0-0.7) Basophils # (Auto) 0.0 x10^3/uL (0.0-0.2) 0.0 x10^3/uL (0.0-0.2) Sodium Level 141 mmol/L (136-145) 140 mmol/L (136-145) Potassium Level 3.3 mmol/L (3.5-5.1) 3.5 mmol/L (3.5-5.1) Chloride Level 107 mmol/L (98-107) 105 mmol/L (98-107) Carbon Dioxide Level 23 mmol/L (21-32) 26 mmol/L (21-32) Anion Gap 11 (6-14) 9 (6-14) Blood Urea Nitrogen 6 mg/dL (7-20) 5 mg/dL (7-20) Creatinine 0.6 mg/dL (0.6-1.0) 0.6 mg/dL (0.6-1.0) Estimated GFR (Cockcroft-Gault) 101.3 101.3 Glucose Level 83 mg/dL (70-99) 130 mg/dL (70-99) Calcium Level 8.1 mg/dL (8.5-10.1) 8.4 mg/dL (8.5-10.1) Laboratory Tests Test 08/09/18 08:55 White Blood Count 2.9 x10^3/uL (4.0-11.0) Red Blood Count 4.22 x10^6/uL (3.50-5.40) Hemoglobin 10.9 g/dL (12.0-15.5) Hematocrit 33.9 % (36.0-47.0) Mean Corpuscular Volume 80 fL (79-100) Mean Corpuscular Hemoglobin 26 pg (25-35) Mean Corpuscular Hemoglobin Concent 32 g/dL (31-37) Red Cell Distribution Width 19.0 % (11.5-14.5) Platelet Count 142 x10^3/uL (140-400) Neutrophils (%) (Auto) 45 % (31-73) Lymphocytes (%) (Auto) 38 % (24-48) Monocytes (%) (Auto) 15 % (0-9) Eosinophils (%) (Auto) 2 % (0-3) Basophils (%) (Auto) 0 % (0-3) Neutrophils # (Auto) 1.3 x10^3uL (1.8-7.7) Lymphocytes # (Auto) 1.1 x10^3/uL (1.0-4.8) Monocytes # (Auto) 0.4 x10^3/uL (0.0-1.1) Eosinophils # (Auto) 0.1 x10^3/uL (0.0-0.7) Basophils # (Auto) 0.0 x10^3/uL (0.0-0.2) Sodium Level 140 mmol/L (136-145) Potassium Level 3.5 mmol/L (3.5-5.1) Chloride Level 105 mmol/L (98-107) Carbon Dioxide Level 26 mmol/L (21-32) Anion Gap 9 (6-14) Blood Urea Nitrogen 5 mg/dL (7-20) Creatinine 0.6 mg/dL (0.6-1.0) Estimated GFR (Cockcroft-Gault) 101.3 Glucose Level 130 mg/dL (70-99) Calcium Level 8.4 mg/dL (8.5-10.1) Microbiology 08/06/18 Blood Culture - Preliminary, Resulted NO GROWTH AFTER 3 DAYS 08/04/18 Urine Culture - Final, Complete 08/04/18 Urine Culture Result 1 (GILDA) - Final, Complete Medications Current Medications Acetaminophen (Tylenol) 1,000 mg 1X ONCE PO Last administered on 08/04/18at 22:30; Start 08/04/18 at 20:30; Stop 08/04/18 at 20:31; Status DC Albuterol/ Ipratropium (Duoneb) 3 ml 1X ONCE NEB Last administered on 08/04/18at 20:39; Start 08/04/18 at 20:30; Stop 08/04/18 at 20:31; Status DC Sodium Chloride 1,000 ml @ 1,000 mls/hr 1X ONCE IV Last administered on 08/04/18at 22:30; Start 08/04/18 at 22:00; Stop 08/04/18 at 22:59; Status DC Ceftriaxone Sodium (Rocephin) 1 gm 1X ONCE IVP Last administered on 08/04/18at 22:30; Start 08/04/18 at 22:30; Stop 08/04/18 at 22:31; Status DC Ondansetron HCl (Zofran) 4 mg PRN Q8HRS PRN IV NAUSEA/VOMITING; Start 08/04/18 at 23:00; Stop 08/05/18 at 22:59; Status DC Fentanyl Citrate (Fentanyl 2ml Vial) 50 mcg PRN Q1HR PRN IV PAIN Last administered on 08/05/18at 19:33; Start 08/04/18 at 23:00; Stop 08/05/18 at 22:59; Status DC Sodium Chloride 1,000 ml @ 100 mls/hr Q10H IV Last administered on 08/05/18at 19:34; Start 08/04/18 at 23:00; Stop 08/05/18 at 22:59; Status DC Ceftriaxone Sodium (Rocephin) 1 gm Q24H IVP Last administered on 08/05/18at 12:07; Start 08/05/18 at 12:00; Stop 08/06/18 at 08:57; Status DC Folic Acid (Folic Acid) 1 mg DAILY PO Last administered on 08/09/18 08:03; Start 08/05/18 at 15:00 Hydrochlorothiazide (Hydrodiuril) 25 mg DAILY PO ; Start 08/05/18 at 15:00; Stop 08/08/18 at 12:45; Status DC Acetaminophen/ Hydrocodone Bitart (Lortab 5/325) 1 tab PRN Q6HRS PRN PO MODERATE TO SEVERE PAIN Last administered on 08/08/18at 20:49; Start 08/05/18 at 14:00 Acetaminophen/ Hydrocodone Bitart (Lortab 5/325) 1 tab Q6HRS PO Last administered on 08/09/18at 06:04; Start 08/05/18 at 18:00 Metoprolol Succinate (Toprol Xl) 100 mg BID PO Last administered on 08/07/18at 20:56; Start 08/05/18 at 21:00; Stop 08/08/18 at 19:08; Status DC Levothyroxine Sodium (Synthroid) 50 mcg DAILY06 PO Last administered on 08/09/18 06:04; Start 08/06/18 at 06:00 Non-Formulary Medication (Methotrexate Sodium (Methotrexate)) 8 tab WEEKLY PO ; Start 08/12/18 at 09:00; Stop 08/12/18 at 09:00; Status DC Verapamil HCl (Calan Sr) 240 mg DAILY PO ; Start 08/05/18 at 15:00; Stop 08/08/18 at 19:08; Status DC Enoxaparin Sodium (Lovenox 40mg Syringe) 40 mg Q24H SQ Last administered on 08/08/18at 14:40; Start 08/05/18 at 15:00 Hydralazine HCl (Apresoline Inj) 10 mg 1X ONCE IVP Last administered on 08/05/18at 16:04; Start 08/05/18 at 15:30; Stop 08/05/18 at 15:51; Status DC Piperacillin Sod/ Tazobactam Sod (Zosyn Per Pharmacy) 1 each PRN DAILY PRN MC SEE COMMENTS; Start 08/06/18 at 08:45 Piperacillin Sod/ Tazobactam Sod 3.375 gm/Sodium Chloride 50 ml @ 100 mls/hr Q6HRS IV Last administered on 08/09/18at 06:05; Start 08/06/18 at 09:30 Vancomycin HCl 1 gm/Sodium Chloride 250 ml @ 250 mls/hr ONCE ONCE IV Last administered on 08/06/18at 10:01; Start 08/06/18 at 09:30; Stop 08/06/18 at 10:29; Status DC Vancomycin HCl 250 ml @ 250 mls/hr 1X ONCE IV ; Start 08/06/18 at 09:30; Stop 08/06/18 at 10:29; Status UNV Sodium Chloride 1,000 ml @ 0 mls/hr 1X ONCE IV Last administered on 08/06/18at 14:00; Start 08/06/18 at 14:00; Stop 08/06/18 at 14:01; Status DC Potassium Chloride (Klor-Con) 40 meq 1X ONCE PO ; Start 08/06/18 at 17:30; Stop 08/06/18 at 17:31; Status DC Potassium Chloride (Klor-Con) 20 meq 1X ONCE PO Last administered on 08/08/18at 14:39; Start 08/08/18 at 13:00; Stop 08/08/18 at 13:01; Status DC Metoprolol Tartrate (Lopressor) 12.5 mg BID PO Last administered on 08/09/18at 08:03; Start 08/08/18 at 21:00 Active Scripts Active [place] 5-325 Tablet (Acetaminophen/Hydrocodone Bitart) 1 Each Tablet 1 Tab PO Q6HRS [place] 5-325 Tablet (Acetaminophen/Hydrocodone Bitart) 1 Each Tablet 1 Tab PO PRN Q6HRS PRN Reported Prednisone 20 Mg Tablet 0.5 Tab PO QID Methotrexate (Methotrexate Sodium) 2.5 Mg Tablet 4 Tab PO WEEKLY Hydrochlorothiazide Tablet (Hydrochlorothiazide) 25 Mg Tablet 25 Mg PO DAILY Metoprolol Succinate ( Xl ) (Metoprolol Succinate) 100 Mg Tab.er.24h 1 Tab PO BID Folic Acid 1 Mg Tablet 1 Tab PO DAILY Verapamil Er (Verapamil Hcl) 240 Mg Cap24h.pel 1 Cap PO DAILY 180 MG Levothyroxine Sodium 50 Mcg Tablet 1 Tab PO DAILY Vitals/I & O Vital Sign - Last 24 Hours 08/08/18 08/08/18 08/08/18 08/08/18 14:40 15:00 17:41 18:00 Temp 97.6 97.6 Pulse 71 68 Resp 18 16 20 18 B/P (MAP) 168/94 (118) 166/94 (118) Pulse Ox 96 94 94 O2 Delivery Room Air Room Air Room Air Room Air O2 Flow Rate 2.0 2.0 08/08/18 08/08/18 08/08/18 08/08/18 18:41 19:00 19:50 19:50 Temp 98.0 98.0 Pulse 66 Resp 18 B/P (MAP) 152/89 (110) Pulse Ox 94 94 O2 Delivery Room Air Room Air Room Air O2 Flow Rate 2.0 08/08/18 08/08/18 08/08/18 08/08/18 20:37 20:49 21:49 22:42 Temp 97.6 97.6 Pulse 66 72 Resp 16 16 18 B/P (MAP) 152/89 162/92 (115) Pulse Ox 92 O2 Delivery Room Air Room Air 08/08/18 08/09/18 08/09/18 08/09/18 23:57 01:00 02:56 06:04 Temp 98.2 98.2 Pulse 73 Resp 18 16 18 16 B/P (MAP) 112/70 (84) Pulse Ox 95 O2 Delivery Room Air Room Air Room Air Room Air 08/09/18 08/09/18 08/09/18 07:00 08:00 08:03 Temp 97.8 97.8 Pulse 72 72 Resp 16 B/P (MAP) 132/73 (92) 132/73 Pulse Ox 97 O2 Delivery Nasal Cannula Nasal Cannula O2 Flow Rate 2.0 2.0 Intake and Output 08/08/18 08/08/18 08/09/18 14:59 22:59 06:59 Intake Total 240 ml 170 ml Balance 240 ml 170 ml EDWARD SAGASTUME III DO Aug 09, 2018 11:27
--- NOTE | 2018-08-09 12:57 | NUR ---
Discharge Note: ALTAF MCCABE [place] Discharge instructions and discharge home medications reviewed with Family Member and a copy given. All questions have been answered and understanding verbalized. The following instructions and handouts were given: UTI Discontinued lines and drains: Peripheral IV intact. Patient discharged to Home or Self Care with Family Member via Wheelchair walked off unit by SULEMAN
--- NOTE | 2018-08-09 12:58 | NUR ---
Discharge Note: ALTAF MCCABE [place] Discharge instructions and discharge home medications reviewed with Family Member and a copy given. All questions have been answered and understanding verbalized. The following instructions and handouts were given: UTI Discontinued lines and drains: Peripheral IV intact. Patient discharged to Home or Self Care with Family Member via Wheelchair walked off unit by SULEMAN
--- NOTE | 2018-08-09 19:15 | DS ---
DATE OF DISCHARGE: 08/09/2018 ADMISSION DIAGNOSES: 1. Multiple myeloma with neutropenic fever. 2. Debility. 3. Pancreatitis. 4. Abdominal pain. 5. Urinary tract infection. DISCHARGE DIAGNOSES: 1. Resolving urinary tract infection. 2. Resolving debility. 3. Multiple myeloma. 4. Gram-positive bacteremia (she was positive in 1 out of 4 bottles. 5. Resolving pancreatitis. 6. Resolving pancytopenia. HOSPITAL COURSE: The patient is a pleasant 63-year-old female from [facility] who basically has multiple myeloma, has been undergoing chemotherapy and presented with pancytopenia and low-grade fever. She also had a lipase level elevation to 495 consistent with mild pancreatitis. Over the past few days, she has done much better. Her lipase has normalized. She did have 1 out of 4 bottles that was positive for bacteria, but it was Gram-positive cocci, suspect it was contaminant. She is alert, eating. I examined her this morning. Her heart tones were normal. Her lungs were clear. Abdomen soft. Extremities no edema. We plan to discharge if okay with consultants. DISPOSITION: Home. ACTIVITY: As tolerated. DIET: Low sodium. MEDICATIONS: We resumed her previous home medicines. TOTAL TIME: 32 minutes. EDWARD SAGASTUME DO DR: CASSANDRA/alexis JOB#: [id number] / [id number]
[2018-08-12] MEDS ORDERED: METHOTREXATE SODIUM PO SCH (09:00)
== END 2018-08-09 13:02 | disposition home or self-care (01) | DRG 871 ==
LOC: ER 19:11 → 5 NORTH 23:00
PROVIDERS: ADMIT Internal Medicine; ATTEND Internal Medicine
DX: A41.9 Sepsis, unspecified organism (principal); K85.90 Acute pancreatitis without necrosis or infection, unspecified; N39.0 Urinary tract infection, site not specified; C90.00 Multiple myeloma not having achieved remission; D61.818 Other pancytopenia; I10 Essential (primary) hypertension; Z85.830 Personal history of malignant neoplasm of bone; M06.9 Rheumatoid arthritis, unspecified; M81.0 Age-related osteoporosis without current pathological fracture; E03.9 Hypothyroidism, unspecified; K21.9 Gastro-esophageal reflux disease without esophagitis; E11.9 Type 2 diabetes mellitus without complications; Z87.891 Personal history of nicotine dependence; T45.1X5A Adverse effect of antineoplastic and immunosuppressive drugs, initial encounter; Y92.89 Other specified places as the place of occurrence of the external cause; L84 Corns and callosities; B96.89 Other specified bacterial agents as the cause of diseases classified elsewhere; R50.81 Fever presenting with conditions classified elsewhere; H54.7 Unspecified visual loss; Z79.899 Other long term (current) drug therapy
CPT/HCPCS: 36415; 71045; 74176; 80048; 80053; 81001; 83605; 83690; 83880; 84484; 85007; 85025; 87040; 87077; 87086; 87205; 93005; 93970; 94640; 96361; 96374; J0360; J0696; J1650; J2543; J3010; J3370; J7030; J7050; J7620; 97116; 97530; 97535; 99285-25

== ENCOUNTER 2019-01-02 09:30 | Inpatient (IN) | payer OTHER ==
[~2019-01-02] VITALS: Ht 137.2 cm; Wt 41.7 kg
[2019-01-02] MEDS ORDERED: ONDANSETRON PF 4 MG/2 ML VIAL. IV ONE (10:15)
[2019-01-02] MEDS ORDERED: MORPHINE SULFATE 4 MG/ML VIAL. IV ONE (10:15)
--- NOTE | 2019-01-02 10:17 | PHYS DOC ---
Past Medical History Past Medical History: Cancer, Hypertension Additional Past Medical Histor: MGUS, Unknown Bone Marrow cancer Past Surgical History: No Surgical History Alcohol Use: None Drug Use: None Adult General Chief Complaint Chief Complaint: ABDOMINAL PAIN HPI HPI Patient is a 63 year old cancer patient that presents with pain that started her right hip and has progressed up to her abdomen. The patient is currently receiving chemotherapy shots for bone marrow cancer. Reports her pain is 10 out of 10 in severity and sharp. The pain is constant. This pain started on Thursday. Denies fever, nausea, and vomiting. Review of Systems Review of Systems Constitutional: Denies fever or chills [] Eyes: Denies change in visual acuity, redness, or eye pain [] HENT: Denies nasal congestion or sore throat [] Respiratory: Denies cough or shortness of breath [] Cardiovascular: No additional information not addressed in HPI [] GI: Reports abdominal pain, Denies nausea, vomiting, bloody stools or diarrhea [] : Denies dysuria or hematuria [] Musculoskeletal: Reports back pain or joint pain [] Integument: Denies rash or skin lesions [] Neurologic: Denies headache, focal weakness or sensory changes [] Endocrine: Denies polyuria or polydipsia [] Complete systems were reviewed and found to be within normal limits, except as documented in this note. Current Medications Current Medications Current Medications Medications (Trade) Dose Ordered Sig/Idris Start Time Stop Time Status Last Admin Dose Admin Ceftriaxone Sodium (Rocephin) 1 gm 1X ONCE 01/02/19 11:45 01/02/19 11:46 DC 01/02/19 11:49 1 GM Info (CONTRAST GIVEN -- Rx MONITORING) 1 each PRN DAILY PRN 01/02/19 11:15 01/04/19 11:14 Iohexol (Omnipaque 300 Mg/ml) 75 ml 1X ONCE 01/02/19 11:15 01/02/19 11:16 DC Magnesium Sulfate/ Dextrose 100 ml @ 100 mls/hr 1X ONCE 01/02/19 11:45 01/02/19 12:44 DC 01/02/19 11:49 100 MLS/HR Morphine Sulfate (Morphine Sulfate) 4 mg 1X ONCE 01/02/19 10:15 01/02/19 10:16 DC 01/02/19 10:34 4 MG Ondansetron HCl (Zofran) 4 mg 1X ONCE 01/02/19 10:15 01/02/19 10:16 DC 01/02/19 10:34 4 MG Allergies Allergies Allergies Coded Allergies Type Severity Reaction Last Updated Verified No Known Drug Allergies 11/21/17 No Physical Exam Physical Exam Constitutional: Well developed, well nourished, no acute distress, non-toxic appearance. [] HENT: Normocephalic, atraumatic, bilateral external ears normal, oropharynx moist, no oral exudates, nose normal. [] Eyes: PERRLA, EOMI, conjunctiva normal, no discharge. [] Neck: Normal range of motion, no tenderness, supple, no stridor. [] Cardiovascular:Heart rate regular rhythm, no murmur [] Lungs & Thorax: Bilateral breath sounds clear to auscultation [] Abdomen: Bowel sounds normal, soft, diffuse tenderness, no masses, no pulsatile masses. [] Skin: Warm, dry, no erythema, no rash. [] Back: Tenderness, no CVA tenderness. [] Extremities: No tenderness, no cyanosis, no clubbing, ROM intact, no edema. [] Neurologic: Alert and oriented X 3, normal motor function, normal sensory function, no focal deficits noted. [] Psychologic: Affect normal, judgement normal, mood normal. [] Current Patient Data Vital Signs Vital Signs Date Time Temp Pulse Resp B/P (MAP) Pulse Ox O2 Delivery O2 Flow Rate FiO2 01/02/19 10:56 88 15 176/100 (125) 100 Nasal Cannula 2.0 01/02/19 09:50 97.7 97.7 Lab Values Laboratory Tests Test 01/02/19 09:50 01/02/19 10:10 Urine Collection Type Unknown Urine Color Yellow Urine Clarity Clear Urine pH 6.0 Urine Specific [place] 1.010 Urine Protein Negative mg/dL (NEG-TRACE) Urine Glucose (UA) Negative mg/dL (NEG) Urine Ketones (Stick) Negative mg/dL (NEG) Urine Blood Negative (NEG) Urine Nitrite Negative (NEG) Urine Bilirubin Negative (NEG) Urine Urobilinogen Dipstick 0.2 mg/dL (0.2 mg/dL) Urine Leukocyte Esterase Large (NEG) Urine RBC 6-10 /HPF (0-2) Urine WBC 20-40 /HPF (0-4) Urine Squamous Epithelial Cells Many /LPF Urine Bacteria Many /HPF (0-FEW) Urine Mucus Slight /LPF White Blood Count 5.9 x10^3/uL (4.0-11.0) Red Blood Count 5.42 x10^6/uL (3.50-5.40) H Hemoglobin 12.6 g/dL (12.0-15.5) Hematocrit 38.9 % (36.0-47.0) Mean Corpuscular Volume 72 fL (79-100) L Mean Corpuscular Hemoglobin 23 pg (25-35) L Mean Corpuscular Hemoglobin Concent 33 g/dL (31-37) Red Cell Distribution Width 17.0 % (11.5-14.5) H Platelet Count 219 x10^3/uL (140-400) Neutrophils (%) (Auto) 73 % (31-73) Lymphocytes (%) (Auto) 19 % (24-48) L Monocytes (%) (Auto) 6 % (0-9) Eosinophils (%) (Auto) 2 % (0-3) Basophils (%) (Auto) 1 % (0-3) Neutrophils # (Auto) 4.3 x10^3/uL (1.8-7.7) Lymphocytes # (Auto) 1.1 x10^3/uL (1.0-4.8) Monocytes # (Auto) 0.4 x10^3/uL (0.0-1.1) Eosinophils # (Auto) 0.1 x10^3/uL (0.0-0.7) Basophils # (Auto) 0.0 x10^3/uL (0.0-0.2) Platelet Estimate Adequate (ADEQUATE) Hypochromasia Slight Anisocytosis Slight Microcytosis Present Ovalocytes Few Prothrombin Time 12.4 SEC (11.7-14.0) Prothrombin Time INR 1.0 (0.8-1.1) Activated Partial Thromboplast Time 29 SEC (24-38) Sodium Level 140 mmol/L (136-145) Potassium Level 3.5 mmol/L (3.5-5.1) Chloride Level 104 mmol/L (98-107) Carbon Dioxide Level 28 mmol/L (21-32) Anion Gap 8 (6-14) Blood Urea Nitrogen 4 mg/dL (7-20) L Creatinine 0.6 mg/dL (0.6-1.0) Estimated GFR (Cockcroft-Gault) 101.3 BUN/Creatinine Ratio 7 (6-20) Glucose Level 131 mg/dL (70-99) H Lactic Acid Level 1.3 mmol/L (0.4-2.0) Calcium Level 9.4 mg/dL (8.5-10.1) Magnesium Level 1.6 mg/dL (1.8-2.4) L Total Bilirubin 0.6 mg/dL (0.2-1.0) Aspartate Amino Transferase (AST) 20 U/L (15-37) Alanine Aminotransferase (ALT) 17 U/L (14-59) Alkaline Phosphatase 113 U/L (46-116) Total Protein 7.3 g/dL (6.4-8.2) Albumin 3.5 g/dL (3.4-5.0) Albumin/Globulin Ratio 0.9 (1.0-1.7) L Laboratory Tests 01/02/19 10:10 Laboratory Tests 01/02/19 10:10 EKG EKG [] Radiology/Procedures Radiology/Procedures [] Course & Med Decision Making Course & Med Decision Making Pertinent Labs and Imaging studies reviewed. (See chart for details) Will get CT, labs, and UA. Will give supportive care. CT is unremarkable, UA shows UTI, labs shows hypomagnesemia. Treated with Rocephin and Magnesium. Discussed with Dr. Ku at 1300 who accepted admission. Dragon Disclaimer Dragon Disclaimer This electronic medical record was generated, in whole or in part, using a voice recognition dictation system. Departure Departure Impression: Primary Impression: Hypomagnesemia Additional Impressions: UTI (urinary tract infection) Abdominal pain Disposition: ADMITTED INPATIENT Admitting Physician: SUZAN Condition: STABLE Referrals: HILDA SHAHID MD (PCP) Problem Qualifiers Additional Impressions: UTI (urinary tract infection) Urinary tract infection type: acute cystitis Hematuria presence: without hematuria Qualified Codes: N30.00 - Acute cystitis without hematuria Abdominal pain Abdominal location: generalized Qualified Codes: R10.84 - Generalized abdominal pain AYDIN GRACE APRN Jan 02, 2019 10:17
[2019-01-02 10:24] LABS: BASO % 1 % (0-3); EOS # 0.1 x10^3/uL (0.0-0.7); EOS % 2 % (0-3); HEMATOCRIT 38.9 % (36.0-47.0); HEMOGLOBIN 12.6 g/dL (12.0-15.5); LYMPH # 1.1 x10^3/uL (1.0-4.8); LYMPH % 19 % (24-48); MEAN CORPUSCULAR HEMOGLOBIN 23 pg (25-35); MEAN CORPUSCULAR HGB CONC 33 g/dL (31-37); MEAN CORPUSCULAR VOLUME 72 fL (79-100); MONO # 0.4 x10^3/uL (0.0-1.1); MONO % 6 % (0-9); NEUT # 4.3 x10^3/uL (1.8-7.7); NEUT % 73 % (31-73); PLATELET COUNT 219 x10^3/uL (140-400); RED BLOOD COUNT 5.42 x10^6/uL (3.50-5.40); WHITE BLOOD COUNT 5.9 x10^3/uL (4.0-11.0)
[2019-01-02 10:25] LABS: BILIRUBIN,URINE NEGATIVE (NEG); CLARITY,URINE CLEAR; COLOR,URINE YELLOW; NITRITE,URINE NEGATIVE (NEG); PROTEIN,URINE NEGATIVE (NEG-TRACE); UROBILINOGEN,URINE 0.2 mg/dL (0.2 mg/dL)
[2019-01-02 10:29] LABS: SQUAMOUS EPITHELIAL CELL,UR MANY /LPF
[2019-01-02 10:30] LABS: BACTERIA,URINE MANY /HPF (0-FEW); WBC,URINE 20-40 /HPF (0-4)
[2019-01-02 10:32] LABS: CALCIUM 9.4 mg/dL (8.5-10.1); CREATININE 0.6 mg/dL (0.6-1.0); GFR 101.3; POTASSIUM 3.5 mmol/L (3.5-5.1); PROTHROMBIN TIME PATIENT 12.4 SEC (11.7-14.0)
[2019-01-02 10:38] LABS: ALBUMIN 3.5 g/dL (3.4-5.0); ALBUMIN/GLOBULIN RATIO 0.9 (1.0-1.7); MAGNESIUM 1.6 mg/dL (1.8-2.4); TOTAL BILIRUBIN 0.6 mg/dL (0.2-1.0); TOTAL PROTEIN 7.3 g/dL (6.4-8.2)
[2019-01-02] MEDS ORDERED: IOHEXOL 300 MG/ML 100ML VIAL. IV ONE (11:15)
[2019-01-02] MEDS ORDERED: CONTRAST GIVEN. MC PRN (11:15)
[2019-01-02 11:26] LABS: ANISOCYTOSIS SLIGHT; HYPOCHROMIA SLIGHT; MICROCYTOSIS PRESENT; OVALOCYTES FEW; PLT ESTIMATE ADEQUATE (ADEQUATE)
[2019-01-02] MEDS ORDERED: cefTRIAXone IV Push 1 GM VIAL. IVP ONE (11:45)
[2019-01-02] MEDS ORDERED: MAGNESIUM SULFATE 1GM 100 ML IV ONE (11:45)
--- NOTE | 2019-01-02 12:32 | RAD ---
CT Abdomen and Pelvis without contrast History: Abdominal pain, history of bone marrow cancer Technique: Noncontrast CT imaging was performed of the abdomen and pelvis. Multiplanar images are reviewed. Exposure: One or more of the following individualized dose reduction techniques were utilized for this examination: 1. Automated exposure control 2. Adjustment of the mA and/or kV according to patient size 3. Use of iterative reconstruction technique. Comparison: August 04, 2018 Findings: There is coronary calcification. There is mild peripheral right lower lobe atelectasis/infiltrate. There is no pleural fluid of the visualized lung bases. Accurate evaluation of the abdominal visceral organs is limited without intravenous contrast, no obvious focal abnormality. There is no hydronephrosis or renal calculus. Gallbladder is present without obvious intraluminal abnormality by CT. There is fairly prominent calcified plaque of the more distal abdominal aorta, also extending to the iliac arteries bilaterally. There is some increased hyperdensity in the appendiceal lumen, caliber about 0.5 cm within normal limits, no adjacent inflammatory-type change. Accurate evaluation of bowel somewhat limited without oral contrast. Bowel is not significantly dilated. There is appearance of possible degree of mild proximal small bowel wall thickening in the left abdomen. There is no free air or significant free fluid. Lumbar vertebral body stature is unchanged. There is again somewhat nodular appearance of the uterus. Impression: 1. No significant inflammatory type change is identified. There may be degree of small bowel wall thickening in the left abdomen as could be seen with enteritis in the appropriate clinical setting. There is increased hyperdensity in the appendiceal lumen possibly due to hyperdense stool, no adjacent inflammatory change or significant appendiceal dilatation. 2. There is mild peripheral right lower lobe infiltrate or atelectasis. 3. There is coronary calcification. Electronically signed by: Carlyle Abebe MD (01/02/2019 12:29 PM) [id number]
--- NOTE | 2019-01-02 13:05 | PDOC1 ---
History and Physical Date of Admission Date of Admission DATE: 01/02/19 TIME: 13:04 Identification/Chief Complaint Chief Complaint seen in er , presented with pain that started her right hip and has progressed up to her abdomen. currently receiving chemotherapy for myeloma///plasma cell myeloma. CT ALSO SUGGESTS LUNG INFILTRATE VS ATELECTASIS Past Medical History Past Medical History Past Medical History Past Medical History: Cancer, Hypertension Additional Past Medical Histor: MGUS, Unknown Bone Marrow cancer Past Surgical History: No Surgical History Alcohol Use: None Drug Use: None fhx htn Heme/Onc: Cancer Family History Family History: High Cholestrol Social History Smoke: Quit ALCOHOL: none Current Problem List Problem List Problems Medical Problems: (1) Abdominal pain Status: Acute (2) Hypomagnesemia Status: Acute Current Medications Current Medications Current Medications Morphine Sulfate (Morphine Sulfate) 4 mg 1X ONCE IV Last administered on 01/02/19at 10:34; Start 01/02/19 at 10:15; Stop 01/02/19 at 10:16; Status DC Ondansetron HCl (Zofran) 4 mg 1X ONCE IV Last administered on 01/02/19at 10:34; Start 01/02/19 at 10:15; Stop 01/02/19 at 10:16; Status DC Iohexol (Omnipaque 300 Mg/ml) 75 ml 1X ONCE IV ; Start 01/02/19 at 11:15; Stop 01/02/19 at 11:16; Status DC Info (CONTRAST GIVEN -- Rx MONITORING) 1 each PRN DAILY PRN MC SEE COMMENTS; Start 01/02/19 at 11:15; Stop 01/04/19 at 11:14 Magnesium Sulfate/ Dextrose 100 ml @ 100 mls/hr 1X ONCE IV Last administered on 01/02/19at 11:49; Start 01/02/19 at 11:45; Stop 01/02/19 at 12:44; Status DC Ceftriaxone Sodium (Rocephin) 1 gm 1X ONCE IVP Last administered on 01/02/19at 11:49; Start 01/02/19 at 11:45; Stop 01/02/19 at 11:46; Status DC Active Scripts Active [place] 5-325 Tablet (Acetaminophen/Hydrocodone Bitart) 1 Each Tablet 1 Tab PO Q6HRS [place] 5-325 Tablet (Acetaminophen/Hydrocodone Bitart) 1 Each Tablet 1 Tab PO PRN Q6HRS PRN Reported Prednisone 20 Mg Tablet 0.5 Tab PO QID Methotrexate (Methotrexate Sodium) 2.5 Mg Tablet 4 Tab PO WEEKLY Hydrochlorothiazide Tablet (Hydrochlorothiazide) 25 Mg Tablet 25 Mg PO DAILY Metoprolol Succinate ( Xl ) (Metoprolol Succinate) 100 Mg Tab.er.24h 1 Tab PO BID Folic Acid 1 Mg Tablet 1 Tab PO DAILY Verapamil Er (Verapamil Hcl) 240 Mg Cap24h.pel 1 Cap PO DAILY 180 MG Levothyroxine Sodium 50 Mcg Tablet 1 Tab PO DAILY Allergies Allergies: Coded Allergies: No Known Drug Allergies (Unverified , 11/21/17) ROS Review of System Review of Systems Review of Systems Constitutional: Denies fever or chills [] Eyes: Denies change in visual acuity, redness, or eye pain [] HENT: Denies nasal congestion or sore throat [] Respiratory: Denies cough or shortness of breath [] Cardiovascular: No additional information not addressed in HPI [] GI: Reports abdominal pain, Denies nausea, vomiting, bloody stools or diarrhea [] : Denies dysuria or hematuria [] Musculoskeletal: Reports back pain or joint pain [] Integument: Denies rash or skin lesions [] Neurologic: Denies headache, focal weakness or sensory changes [] Endocrine: Denies polyuria or polydipsia [] 14 PT systems were reviewed and found to be within normal limits, except as documented General: YES: Fatigue ALLERGY AND IMMUNOLOGY: No: Hives, Insect Bite Sensitivity, Itchy/Watery Eyes, Nasal Congestion, Post Nasal Drip, Seasonal Allergies, Other Musculoskeletal: Yes Joint Stiffness Physical Exam Physical Exam Physical Exam Physical Exam Constitutional: Well developed, well nourished, no acute distress, non-toxic appearance. [] HENT: Normocephalic, atraumatic, bilateral external ears normal, oropharynx moist, no oral exudates, nose normal. [] Eyes: PERRLA, EOMI, conjunctiva normal, no discharge. [] Neck: Normal range of motion, no tenderness, supple, no stridor. [] Cardiovascular:Heart rate regular rhythm, no murmur [] Lungs & Thorax: Bilateral breath sounds clear to auscultation [] Abdomen: Bowel sounds normal, soft, diffuse tenderness, no masses, no pulsatile masses. [] Skin: Warm, dry, no erythema, no rash. [] Back: Tenderness, no CVA tenderness. [] Extremities: No tenderness, no cyanosis, no clubbing, ROM intact, no edema. [] Neurologic: Alert and oriented X 3, normal motor function, normal sensory function, no focal deficits noted. [] Psychologic: Affect normal, judgement normal, mood normal. [] General: Alert, Cooperative Breasts: Not examined Abdomen: Soft Rectal Exam: not examined PELVIC: Examination not indicated Neuro: Normal speech, Cranial nerves 3-12 NL Vitals Vitals Vital Signs Date Time Temp Pulse Resp B/P (MAP) Pulse Ox O2 Delivery O2 Flow Rate FiO2 01/02/19 10:56 88 15 176/100 (125) 100 Nasal Cannula 2.0 01/02/19 09:50 97.7 97.7 Labs Labs Laboratory Tests Test 01/02/19 09:50 01/02/19 10:10 Urine Collection Type Unknown Urine Color Yellow Urine Clarity Clear Urine pH 6.0 Urine Specific [place] 1.010 Urine Protein Negative mg/dL (NEG-TRACE) Urine Glucose (UA) Negative mg/dL (NEG) Urine Ketones (Stick) Negative mg/dL (NEG) Urine Blood Negative (NEG) Urine Nitrite Negative (NEG) Urine Bilirubin Negative (NEG) Urine Urobilinogen Dipstick 0.2 mg/dL (0.2 mg/dL) Urine Leukocyte Esterase Large (NEG) Urine RBC 6-10 /HPF (0-2) Urine WBC 20-40 /HPF (0-4) Urine Squamous Epithelial Cells Many /LPF Urine Bacteria Many /HPF (0-FEW) Urine Mucus Slight /LPF White Blood Count 5.9 x10^3/uL (4.0-11.0) Red Blood Count 5.42 x10^6/uL (3.50-5.40) Hemoglobin 12.6 g/dL (12.0-15.5) Hematocrit 38.9 % (36.0-47.0) Mean Corpuscular Volume 72 fL (79-100) Mean Corpuscular Hemoglobin 23 pg (25-35) Mean Corpuscular Hemoglobin Concent 33 g/dL (31-37) Red Cell Distribution Width 17.0 % (11.5-14.5) Platelet Count 219 x10^3/uL (140-400) Neutrophils (%) (Auto) 73 % (31-73) Lymphocytes (%) (Auto) 19 % (24-48) Monocytes (%) (Auto) 6 % (0-9) Eosinophils (%) (Auto) 2 % (0-3) Basophils (%) (Auto) 1 % (0-3) Neutrophils # (Auto) 4.3 x10^3/uL (1.8-7.7) Lymphocytes # (Auto) 1.1 x10^3/uL (1.0-4.8) Monocytes # (Auto) 0.4 x10^3/uL (0.0-1.1) Eosinophils # (Auto) 0.1 x10^3/uL (0.0-0.7) Basophils # (Auto) 0.0 x10^3/uL (0.0-0.2) Platelet Estimate Adequate (ADEQUATE) Hypochromasia Slight Anisocytosis Slight Microcytosis Present Ovalocytes Few Prothrombin Time 12.4 SEC (11.7-14.0) Prothromb Time International Ratio 1.0 (0.8-1.1) Activated Partial Thromboplast Time 29 SEC (24-38) Sodium Level 140 mmol/L (136-145) Potassium Level 3.5 mmol/L (3.5-5.1) Chloride Level 104 mmol/L (98-107) Carbon Dioxide Level 28 mmol/L (21-32) Anion Gap 8 (6-14) Blood Urea Nitrogen 4 mg/dL (7-20) Creatinine 0.6 mg/dL (0.6-1.0) Estimated GFR (Cockcroft-Gault) 101.3 BUN/Creatinine Ratio 7 (6-20) Glucose Level 131 mg/dL (70-99) Lactic Acid Level 1.3 mmol/L (0.4-2.0) Calcium Level 9.4 mg/dL (8.5-10.1) Magnesium Level 1.6 mg/dL (1.8-2.4) Total Bilirubin 0.6 mg/dL (0.2-1.0) Aspartate Amino Transf (AST/SGOT) 20 U/L (15-37) Alanine Aminotransferase (ALT/SGPT) 17 U/L (14-59) Alkaline Phosphatase 113 U/L (46-116) Total Protein 7.3 g/dL (6.4-8.2) Albumin 3.5 g/dL (3.4-5.0) Albumin/Globulin Ratio 0.9 (1.0-1.7) Laboratory Tests Test 01/02/19 09:50 01/02/19 10:10 Urine Collection Type Unknown Urine Color Yellow Urine Clarity Clear Urine pH 6.0 Urine Specific [place] 1.010 Urine Protein Negative mg/dL (NEG-TRACE) Urine Glucose (UA) Negative mg/dL (NEG) Urine Ketones (Stick) Negative mg/dL (NEG) Urine Blood Negative (NEG) Urine Nitrite Negative (NEG) Urine Bilirubin Negative (NEG) Urine Urobilinogen Dipstick 0.2 mg/dL (0.2 mg/dL) Urine Leukocyte Esterase Large (NEG) Urine RBC 6-10 /HPF (0-2) Urine WBC 20-40 /HPF (0-4) Urine Squamous Epithelial Cells Many /LPF Urine Bacteria Many /HPF (0-FEW) Urine Mucus Slight /LPF White Blood Count 5.9 x10^3/uL (4.0-11.0) Red Blood Count 5.42 x10^6/uL (3.50-5.40) Hemoglobin 12.6 g/dL (12.0-15.5) Hematocrit 38.9 % (36.0-47.0) Mean Corpuscular Volume 72 fL (79-100) Mean Corpuscular Hemoglobin 23 pg (25-35) Mean Corpuscular Hemoglobin Concent 33 g/dL (31-37) Red Cell Distribution Width 17.0 % (11.5-14.5) Platelet Count 219 x10^3/uL (140-400) Neutrophils (%) (Auto) 73 % (31-73) Lymphocytes (%) (Auto) 19 % (24-48) Monocytes (%) (Auto) 6 % (0-9) Eosinophils (%) (Auto) 2 % (0-3) Basophils (%) (Auto) 1 % (0-3) Neutrophils # (Auto) 4.3 x10^3/uL (1.8-7.7) Lymphocytes # (Auto) 1.1 x10^3/uL (1.0-4.8) Monocytes # (Auto) 0.4 x10^3/uL (0.0-1.1) Eosinophils # (Auto) 0.1 x10^3/uL (0.0-0.7) Basophils # (Auto) 0.0 x10^3/uL (0.0-0.2) Platelet Estimate Adequate (ADEQUATE) Hypochromasia Slight Anisocytosis Slight Microcytosis Present Ovalocytes Few Prothrombin Time 12.4 SEC (11.7-14.0) Prothromb Time International Ratio 1.0 (0.8-1.1) Activated Partial Thromboplast Time 29 SEC (24-38) Sodium Level 140 mmol/L (136-145) Potassium Level 3.5 mmol/L (3.5-5.1) Chloride Level 104 mmol/L (98-107) Carbon Dioxide Level 28 mmol/L (21-32) Anion Gap 8 (6-14) Blood Urea Nitrogen 4 mg/dL (7-20) Creatinine 0.6 mg/dL (0.6-1.0) Estimated GFR (Cockcroft-Gault) 101.3 BUN/Creatinine Ratio 7 (6-20) Glucose Level 131 mg/dL (70-99) Lactic Acid Level 1.3 mmol/L (0.4-2.0) Calcium Level 9.4 mg/dL (8.5-10.1) Magnesium Level 1.6 mg/dL (1.8-2.4) Total Bilirubin 0.6 mg/dL (0.2-1.0) Aspartate Amino Transf (AST/SGOT) 20 U/L (15-37) Alanine Aminotransferase (ALT/SGPT) 17 U/L (14-59) Alkaline Phosphatase 113 U/L (46-116) Total Protein 7.3 g/dL (6.4-8.2) Albumin 3.5 g/dL (3.4-5.0) Albumin/Globulin Ratio 0.9 (1.0-1.7) Images Images . 01 Clinical history: . MGUS . 02 Diagnosis: Peripheral smear: - No significant pathologic abnormalities. . Bone marrow, aspirate smears, clot section, and core biopsy: - Normocellular marrow showing trilineage hematopoiesis, no significant dyspoiesis, and a moderate plasmacytosis comprised of abnormal plasma cells showing immunophenotypic evidence of lambda light chain restriction-findings are compatible with a plasma cell neoplasm. - Nearly absent iron stores. (JPM:conor; 05/17/2018) QMS/05/17/2018 . 02 Comment: The peripheral smear shows no significant pathologic abnormalities. The bone marrow is normocellular and shows trilineage hematopoiesis, no significant dyspoiesis, and a moderate plasmacytosis comprised of abnormal plasma cells showing immunophenotypic evidence of lambda light chain restriction. Plasma cells comprise approximately 20% of nucleated marrow cells. There does appear to be end organ damage as evidenced by the presence of multiple small lytic lesions in the calvarium on skeletal survey. 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 . The case is also examined by Dr. Vanesa Castillo, who concurs with the diagnosis. (JPM:conor; 05/17/2018) . . CT Abdomen and Pelvis without contrast History: Abdominal pain, history of bone marrow cancer Technique: Noncontrast CT imaging was performed of the abdomen and pelvis. Multiplanar images are reviewed. Exposure: One or more of the following individualized dose reduction techniques were utilized for this examination: 1. Automated exposure control 2. Adjustment of the mA and/or kV according to patient size 3. Use of iterative reconstruction technique. Comparison: August 04, 2018 Findings: There is coronary calcification. There is mild peripheral right lower lobe atelectasis/infiltrate. There is no pleural fluid of the visualized lung bases. Accurate evaluation of the abdominal visceral organs is limited without intravenous contrast, no obvious focal abnormality. There is no hydronephrosis or renal calculus. Gallbladder is present without obvious intraluminal abnormality by CT. There is fairly prominent calcified plaque of the more distal abdominal aorta, also extending to the iliac arteries bilaterally. There is some increased hyperdensity in the appendiceal lumen, caliber about 0.5 cm within normal limits, no adjacent inflammatory-type change. Accurate evaluation of bowel somewhat limited without oral contrast. Bowel is not significantly dilated. There is appearance of possible degree of mild proximal small bowel wall thickening in the left abdomen. There is no free air or significant free fluid. Lumbar vertebral body stature is unchanged. There is again somewhat nodular appearance of the uterus. Impression: 1. No significant inflammatory type change is identified. There may be degree of small bowel wall thickening in the left abdomen as could be seen with enteritis in the appropriate clinical setting. There is increased hyperdensity in the appendiceal lumen possibly due to hyperdense stool, no adjacent inflammatory change or significant appendiceal dilatation. 2. There is mild peripheral right lower lobe infiltrate or atelectasis. 3. There is coronary calcification. Electronically signed by: Carlyle Abebe MD (01/02/2019 12:29 PM) [facility] [place] VTE Prophylaxis Ordered VTE Prophylaxis Devices: Yes VTE Pharmacological Prophylaxi: Yes Assessment/Plan Assessment/Plan ADMISSION DIAGNOSES: 1. Multiple myeloma .///plasma cell myeloma. 2. Debility. 3. malnutrition 4. Abdominal pain. 5. Urinary tract infection. 6. 01/[address] ABD degree of small bowel wall thickening in the left abdomen as could be seen with enteritis in the appropriate clinical setting. There is increased hyperdensity in the appendiceal lumen possibly due to hyperdense stool, no a djacent inflammatory change or significant appendiceal dilatation. 7. mild peripheral right lower lobe infiltrate or atelectasis. 8. uncontrolled hypertension plan admit IV ANTIBIOTICS, EMPERIC BLOOD AND URINE CULTURE PULM CONSULT NEBS QID PRN DVT PROPHYLAXIS CONSULT DR KIRBY, ONCOLOGY GI CONSULT ID CONSULT HOME MEDS RECONSILED BP CONTROL, PRN IV HYDRALAZINE 10MG Q 4 HRS 74 MIN PT EXAM, CHART REVIEW, > 50% OF TIME SPENT WITH EXAM, CHART REVIEW, PT CARE COORDINATION IGNACIO LEGER MD Jan 02, 2019 13:05
[2019-01-02] MEDS ORDERED: ONDANSETRON PF 4 MG/2 ML VIAL. IV PRN ×2 (13:15→15:15)
[2019-01-02] MEDS ORDERED: fentaNYL PF VIAL 100 MCG/2 ML VIAL IV PRN (13:15)
[2019-01-02 15:03] VITALS: BP 167/86
[2019-01-02] MEDS ORDERED: DOCUSATE SODIUM 100 MG CAPSULE. PO PRN (15:15)
[2019-01-02] MEDS ORDERED: cloNIDine HCL 0.1 MG TABLET PO PRN (15:15)
[2019-01-02] MEDS ORDERED: MAG HYDROX/ALUMINUM HYD/SIMETH 30 ML ORAL.SUSP PO PRN (15:15)
[2019-01-02] MEDS ORDERED: LORazepam 0.5 MG TABLET PO PRN (15:15)
[2019-01-02] MEDS ORDERED: guaiFENesin ORAL 200 MG/10 ML LIQUID. PO PRN (15:15)
[2019-01-02] MEDS ORDERED: ALBUTEROL SULFATE 2.5 MG/3 ML NEBU. NEB PRN (15:15)
[2019-01-02] MEDS ORDERED: ACETAMINOPHEN 325 MG TABLET. PO PRN (15:15)
[2019-01-02] MEDS ORDERED: 0.9 % SODIUM CHLORIDE 10 ML DISP.SYRIN. IV PRN (15:15)
[2019-01-02] MEDS ORDERED: hydrALAZINE 20 MG/ML VIAL. IVP PRN (15:30)
[2019-01-02] MEDS ORDERED: VANCOMYCIN PER PHARMACY MC PRN (15:30)
[2019-01-02] MEDS: IV NORMAL SALINE 1000ML BAG 1,000 ML IV SCH (15:46)
[2019-01-02] MEDS: HYDROcodone/APAP 5/325MG 1 TAB TABLET PO PRN (15:51)
[2019-01-02] MEDS: LEVOTHYROXINE 50 MCG TABLET PO SCH (15:51)
[2019-01-02] MEDS: hydroCHLOROthiazide 25 MG TABLET PO SCH (15:51)
[2019-01-02] MEDS: VERAPAMIL SR 120 MG TABLET.ER. PO SCH (15:51)
[2019-01-02] MEDS: predniSONE 10 MG TABLET PO SCH ×2 (15:51→20:18)
[2019-01-02] MEDS: FOLIC ACID 1 MG TABLET. PO SCH (15:51)
[2019-01-02] MEDS ORDERED: VANCOMYCIN 1 GM in IV NORMAL SALINE 250ML 250 ML IV ONE (16:00)
--- NOTE | 2019-01-02 16:17 | NUR ---
Pharmacy Vancomycin Dosing Note S:Consulted to monitor and dose vancomycin started 01/02/19. O:FABY MCCABE is a 63 year old F with Pneumonia UTI . Height: 4 feet, 6 inches Weight: 41.257035 kg [place] Body Weight: 31.70 Adjusted Body Weight: 35.82 Dosing Weight: Actual Other Antibiotics: MEROPENEM LABS: Last BUN: 4 Last Creatinine: 0.6 Creatinine Clearance: 64 mL/min Last WBC: 5.9 Last Procalcitonin: Tmax (past 24 hours): 97.8 Microbiology: I/O: Drug Levels: Last level: on at Last dose given 01/02/19 at 1547 Vancomycin Dosing: Loading Dose: 1000 mg x1 Dosing Weight: Actual Target Trough: 15-20 A: Based on: Body weight and renal function P: 1. After loading dose, start Vancomycin 750 mg IV q12h 2. Follow up Trough level on 01/04/19 at 0330 3. Pharmacy will continue to monitor, follow and adjust therapy as needed. MADELINE SHAIKH RPH, 01/02/19 [id number]
[2019-01-02] MEDS: MEROPENEM 500 MG in IV NORMAL SALINE 50ML 50 ML IV SCH (17:22)
[2019-01-02] MEDS ORDERED: HYDROcodone/APAP 5/325MG 1 TAB TABLET PO SCH (18:00)
[2019-01-02 19:00] VITALS: BP 102/59
[2019-01-02] MEDS: METOPROLOL SUCC 24HR ER 100 MG TAB.ER.24H. PO SCH (20:15)
[2019-01-02 23:00] VITALS: BP 98/63
[2019-01-03] MEDS: MEROPENEM 500 MG in IV NORMAL SALINE 50ML 50 ML IV SCH ×2 (00:52→06:49)
[2019-01-03] MEDS: HYDROcodone/APAP 5/325MG 1 TAB TABLET PO PRN (01:53)
[2019-01-03] MEDS: IV NORMAL SALINE 1000ML BAG 1,000 ML IV SCH ×3 (01:53→22:00)
[2019-01-03 03:00] VITALS: BP 119/64
[2019-01-03] MEDS ORDERED: VANCOMYCIN 750 MG in IV NORMAL SALINE 250ML 250 ML IV SCH (04:00)
[2019-01-03] MEDS: LEVOTHYROXINE 50 MCG TABLET PO SCH (06:49)
[2019-01-03 07:57] VITALS: BP 132/73
--- NOTE | 2019-01-03 08:21 | RAD ---
EXAM: CHEST 1 VIEW History: Pneumonia COMPARISON: 08/04/2018 TECHNIQUE: Single portable radiograph of the chest FINDINGS: The cardiac silhouette is unremarkable. Minimal prominent bilateral interstitial lung markings likely chronic interstitial changes similar to prior exam. The costophrenic sulci are clear and well demarcated. IMPRESSION: No radiographic evidence of an acute cardiopulmonary process. Electronically signed by: Popeye Kearns MD (01/03/2019 8:18 AM) [facility]
[2019-01-03 08:42] LABS: BASO % 0 % (0-3); EOS % 0 % (0-3); HEMATOCRIT 36.9 % (36.0-47.0); HEMOGLOBIN 11.9 g/dL (12.0-15.5); LYMPH # 0.7 x10^3/uL (1.0-4.8); LYMPH % 16 % (24-48); MEAN CORPUSCULAR HEMOGLOBIN 23 pg (25-35); MEAN CORPUSCULAR HGB CONC 32 g/dL (31-37); MEAN CORPUSCULAR VOLUME 72 fL (79-100); MONO # 0.2 x10^3/uL (0.0-1.1); MONO % 3 % (0-9); NEUT # 3.8 x10^3/uL (1.8-7.7); NEUT % 81 % (31-73); PLATELET COUNT 216 x10^3/uL (140-400); RED BLOOD COUNT 5.11 x10^6/uL (3.50-5.40); RED CELL DISTRIBUTION WIDTH 17.1 % (11.5-14.5); WHITE BLOOD COUNT 4.7 x10^3/uL (4.0-11.0)
[2019-01-03] MEDS ORDERED: MAGNESIUM SULFATE 2GM 50 ML IV ONE (09:00)
[2019-01-03] MEDS ORDERED: POTASSIUM CHLORIDE 20 MEQ TABLET.ER. PO ONE (09:00)
--- NOTE | 2019-01-03 09:01 | PDOC ---
PROGRESS NOTES Chief Complaint Chief Complaint Right hip pain Abdominal pain - possible enteritis on CT, was given empiric antibiotics IgA multiple myeloma vision loss rheumatoid arthritis, on methotrexate osteoporosis hypothyroidism hypertension h/o giant cell arteritis GERD cataracts type 2 diabetes 28 minutes examination, counseling, translation and coordination of care History of Present Illness History of Present Illness Ms Evans is a 63-year-old female from [facility] w/ PMHx vision loss, rheumatoid arthritis, on methotrexate, osteoporosis, osteomyelitis, hypothyroidism, hypertension, giant cell arteritis, GERD, foot lesion, cataract, ankle fracture, type 2 diabetes who was diagnosed with IgA lambda multiple myeloma, stage I with normal cytogenetics by a bone marrow biopsy on 05/06/2018. Skeletal survey on 04/26/2018 revealed multiple lytic lesions. She was started on chemotherapy with Velcade, dexamethasone and Revlimid on 05/28/2018 and Revlimid was discontinued after cycle #2 because of her reaction to Revlimid causing severe joint pains and skin burning. She did not want to resume Revlimid anymore. She has been tolerating outpatient treatment pretty well this year, but was ad mitted through ED on 01/02/19 due to pain that started her right hip and has progressed up to her abdomen. CT suggestive of lung infiltrate vs atelectasis. Today pain is improved. Her significant other wishes to take her home. Potassium 3.4 today and mag 1.6. Still on antibiotics currently. No SOB or CP. Vitals Vitals Vital Signs Date Time Temp Pulse Resp B/P (MAP) Pulse Ox O2 Delivery O2 Flow Rate FiO2 01/03/19 07:57 97.7 60 16 132/73 (92) 98 Room Air 97.7 01/03/19 07:45 2.0 Physical Exam General: Alert, Cooperative Heart: Regular rate, Normal S1, Normal S2 Lungs: Clear Abdomen: Soft Extremities: No clubbing, No cyanosis Skin: No rashes, No breakdown Labs LABS Laboratory Tests Test 01/02/19 09:50 01/02/19 10:10 01/03/19 07:55 Urine Collection Type Unknown Urine Color Yellow Urine Clarity Clear Urine pH 6.0 Urine Specific Baker 1.010 Urine Protein Negative mg/dL (NEG-TRACE) Urine Glucose (UA) Negative mg/dL (NEG) Urine Ketones (Stick) Negative mg/dL (NEG) Urine Blood Negative (NEG) Urine Nitrite Negative (NEG) Urine Bilirubin Negative (NEG) Urine Urobilinogen Dipstick 0.2 mg/dL (0.2 mg/dL) Urine Leukocyte Esterase Large (NEG) Urine RBC 6-10 /HPF (0-2) Urine WBC 20-40 /HPF (0-4) Urine Squamous Epithelial Cells Many /LPF Urine Bacteria Many /HPF (0-FEW) Urine Mucus Slight /LPF White Blood Count 5.9 x10^3/uL (4.0-11.0) 4.7 x10^3/uL (4.0-11.0) Red Blood Count 5.42 x10^6/uL (3.50-5.40) 5.11 x10^6/uL (3.50-5.40) Hemoglobin 12.6 g/dL (12.0-15.5) 11.9 g/dL (12.0-15.5) Hematocrit 38.9 % (36.0-47.0) 36.9 % (36.0-47.0) Mean Corpuscular Volume 72 fL (79-100) 72 fL (79-100) Mean Corpuscular Hemoglobin 23 pg (25-35) 23 pg (25-35) Mean Corpuscular Hemoglobin Concent 33 g/dL (31-37) 32 g/dL (31-37) Red Cell Distribution Width 17.0 % (11.5-14.5) 17.1 % (11.5-14.5) Platelet Count 219 x10^3/uL (140-400) 216 x10^3/uL (140-400) Neutrophils (%) (Auto) 73 % (31-73) 81 % (31-73) Lymphocytes (%) (Auto) 19 % (24-48) 16 % (24-48) Monocytes (%) (Auto) 6 % (0-9) 3 % (0-9) Eosinophils (%) (Auto) 2 % (0-3) 0 % (0-3) Basophils (%) (Auto) 1 % (0-3) 0 % (0-3) Neutrophils # (Auto) 4.3 x10^3/uL (1.8-7.7) 3.8 x10^3/uL (1.8-7.7) Lymphocytes # (Auto) 1.1 x10^3/uL (1.0-4.8) 0.7 x10^3/uL (1.0-4.8) Monocytes # (Auto) 0.4 x10^3/uL (0.0-1.1) 0.2 x10^3/uL (0.0-1.1) Eosinophils # (Auto) 0.1 x10^3/uL (0.0-0.7) 0.0 x10^3/uL (0.0-0.7) Basophils # (Auto) 0.0 x10^3/uL (0.0-0.2) 0.0 x10^3/uL (0.0-0.2) Platelet Estimate Adequate (ADEQUATE) Hypochromasia Slight Anisocytosis Slight Microcytosis Present Ovalocytes Few Prothrombin Time 12.4 SEC (11.7-14.0) Prothromb Time International Ratio 1.0 (0.8-1.1) Activated Partial Thromboplast Time 29 SEC (24-38) Sodium Level 140 mmol/L (136-145) Potassium Level 3.5 mmol/L (3.5-5.1) Chloride Level 104 mmol/L (98-107) Carbon Dioxide Level 28 mmol/L (21-32) Anion Gap 8 (6-14) Blood Urea Nitrogen 4 mg/dL (7-20) Creatinine 0.6 mg/dL (0.6-1.0) Estimated GFR (Cockcroft-Gault) 101.3 BUN/Creatinine Ratio 7 (6-20) Glucose Level 131 mg/dL (70-99) Lactic Acid Level 1.3 mmol/L (0.4-2.0) Calcium Level 9.4 mg/dL (8.5-10.1) Magnesium Level 1.6 mg/dL (1.8-2.4) Total Bilirubin 0.6 mg/dL (0.2-1.0) Aspartate Amino Transf (AST/SGOT) 20 U/L (15-37) Alanine Aminotransferase (ALT/SGPT) 17 U/L (14-59) Alkaline Phosphatase 113 U/L (46-116) Total Protein 7.3 g/dL (6.4-8.2) Albumin 3.5 g/dL (3.4-5.0) Albumin/Globulin Ratio 0.9 (1.0-1.7) Assessment and Plan Assessmemt and Plan Problems Medical Problems: (1) Abdominal pain Status: Acute (2) Hypomagnesemia Status: Acute Comment Review of Relevant I have reviewed the following items anai (where applicable) has been applied. Labs Laboratory Tests Test 01/02/19 09:50 01/02/19 10:10 01/03/19 07:55 Urine Collection Type Unknown Urine Color Yellow Urine Clarity Clear Urine pH 6.0 Urine Specific Baker 1.010 Urine Protein Negative mg/dL (NEG-TRACE) Urine Glucose (UA) Negative mg/dL (NEG) Urine Ketones (Stick) Negative mg/dL (NEG) Urine Blood Negative (NEG) Urine Nitrite Negative (NEG) Urine Bilirubin Negative (NEG) Urine Urobilinogen Dipstick 0.2 mg/dL (0.2 mg/dL) Urine Leukocyte Esterase Large (NEG) Urine RBC 6-10 /HPF (0-2) Urine WBC 20-40 /HPF (0-4) Urine Squamous Epithelial Cells Many /LPF Urine Bacteria Many /HPF (0-FEW) Urine Mucus Slight /LPF White Blood Count 5.9 x10^3/uL (4.0-11.0) 4.7 x10^3/uL (4.0-11.0) Red Blood Count 5.42 x10^6/uL (3.50-5.40) 5.11 x10^6/uL (3.50-5.40) Hemoglobin 12.6 g/dL (12.0-15.5) 11.9 g/dL (12.0-15.5) Hematocrit 38.9 % (36.0-47.0) 36.9 % (36.0-47.0) Mean Corpuscular Volume 72 fL (79-100) 72 fL (79-100) Mean Corpuscular Hemoglobin 23 pg (25-35) 23 pg (25-35) Mean Corpuscular Hemoglobin Concent 33 g/dL (31-37) 32 g/dL (31-37) Red Cell Distribution Width 17.0 % (11.5-14.5) 17.1 % (11.5-14.5) Platelet Count 219 x10^3/uL (140-400) 216 x10^3/uL (140-400) Neutrophils (%) (Auto) 73 % (31-73) 81 % (31-73) Lymphocytes (%) (Auto) 19 % (24-48) 16 % (24-48) Monocytes (%) (Auto) 6 % (0-9) 3 % (0-9) Eosinophils (%) (Auto) 2 % (0-3) 0 % (0-3) Basophils (%) (Auto) 1 % (0-3) 0 % (0-3) Neutrophils # (Auto) 4.3 x10^3/uL (1.8-7.7) 3.8 x10^3/uL (1.8-7.7) Lymphocytes # (Auto) 1.1 x10^3/uL (1.0-4.8) 0.7 x10^3/uL (1.0-4.8) Monocytes # (Auto) 0.4 x10^3/uL (0.0-1.1) 0.2 x10^3/uL (0.0-1.1) Eosinophils # (Auto) 0.1 x10^3/uL (0.0-0.7) 0.0 x10^3/uL (0.0-0.7) Basophils # (Auto) 0.0 x10^3/uL (0.0-0.2) 0.0 x10^3/uL (0.0-0.2) Platelet Estimate Adequate (ADEQUATE) Hypochromasia Slight Anisocytosis Slight Microcytosis Present Ovalocytes Few Prothrombin Time 12.4 SEC (11.7-14.0) Prothromb Time International Ratio 1.0 (0.8-1.1) Activated Partial Thromboplast Time 29 SEC (24-38) Sodium Level 140 mmol/L (136-145) Potassium Level 3.5 mmol/L (3.5-5.1) Chloride Level 104 mmol/L (98-107) Carbon Dioxide Level 28 mmol/L (21-32) Anion Gap 8 (6-14) Blood Urea Nitrogen 4 mg/dL (7-20) Creatinine 0.6 mg/dL (0.6-1.0) Estimated GFR (Cockcroft-Gault) 101.3 BUN/Creatinine Ratio 7 (6-20) Glucose Level 131 mg/dL (70-99) Lactic Acid Level 1.3 mmol/L (0.4-2.0) Calcium Level 9.4 mg/dL (8.5-10.1) Magnesium Level 1.6 mg/dL (1.8-2.4) Total Bilirubin 0.6 mg/dL (0.2-1.0) Aspartate Amino Transf (AST/SGOT) 20 U/L (15-37) Alanine Aminotransferase (ALT/SGPT) 17 U/L (14-59) Alkaline Phosphatase 113 U/L (46-116) Total Protein 7.3 g/dL (6.4-8.2) Albumin 3.5 g/dL (3.4-5.0) Albumin/Globulin Ratio 0.9 (1.0-1.7) Laboratory Tests Test 01/02/19 09:50 01/02/19 10:10 01/03/19 07:55 Urine Collection Type Unknown Urine Color Yellow Urine Clarity Clear Urine pH 6.0 Urine Specific Baker 1.010 Urine Protein Negative mg/dL (NEG-TRACE) Urine Glucose (UA) Negative mg/dL (NEG) Urine Ketones (Stick) Negative mg/dL (NEG) Urine Blood Negative (NEG) Urine Nitrite Negative (NEG) Urine Bilirubin Negative (NEG) Urine Urobilinogen Dipstick 0.2 mg/dL (0.2 mg/dL) Urine Leukocyte Esterase Large (NEG) Urine RBC 6-10 /HPF (0-2) Urine WBC 20-40 /HPF (0-4) Urine Squamous Epithelial Cells Many /LPF Urine Bacteria Many /HPF (0-FEW) Urine Mucus Slight /LPF White Blood Count 5.9 x10^3/uL (4.0-11.0) 4.7 x10^3/uL (4.0-11.0) Red Blood Count 5.42 x10^6/uL (3.50-5.40) 5.11 x10^6/uL (3.50-5.40) Hemoglobin 12.6 g/dL (12.0-15.5) 11.9 g/dL (12.0-15.5) Hematocrit 38.9 % (36.0-47.0) 36.9 % (36.0-47.0) Mean Corpuscular Volume 72 fL (79-100) 72 fL (79-100) Mean Corpuscular Hemoglobin 23 pg (25-35) 23 pg (25-35) Mean Corpuscular Hemoglobin Concent 33 g/dL (31-37) 32 g/dL (31-37) Red Cell Distribution Width 17.0 % (11.5-14.5) 17.1 % (11.5-14.5) Platelet Count 219 x10^3/uL (140-400) 216 x10^3/uL (140-400) Neutrophils (%) (Auto) 73 % (31-73) 81 % (31-73) Lymphocytes (%) (Auto) 19 % (24-48) 16 % (24-48) Monocytes (%) (Auto) 6 % (0-9) 3 % (0-9) Eosinophils (%) (Auto) 2 % (0-3) 0 % (0-3) Basophils (%) (Auto) 1 % (0-3) 0 % (0-3) Neutrophils # (Auto) 4.3 x10^3/uL (1.8-7.7) 3.8 x10^3/uL (1.8-7.7) Lymphocytes # (Auto) 1.1 x10^3/uL (1.0-4.8) 0.7 x10^3/uL (1.0-4.8) Monocytes # (Auto) 0.4 x10^3/uL (0.0-1.1) 0.2 x10^3/uL (0.0-1.1) Eosinophils # (Auto) 0.1 x10^3/uL (0.0-0.7) 0.0 x10^3/uL (0.0-0.7) Basophils # (Auto) 0.0 x10^3/uL (0.0-0.2) 0.0 x10^3/uL (0.0-0.2) Platelet Estimate Adequate (ADEQUATE) Hypochromasia Slight Anisocytosis Slight Microcytosis Present Ovalocytes Few Prothrombin Time 12.4 SEC (11.7-14.0) Prothromb Time International Ratio 1.0 (0.8-1.1) Activated Partial Thromboplast Time 29 SEC (24-38) Sodium Level 140 mmol/L (136-145) Potassium Level 3.5 mmol/L (3.5-5.1) Chloride Level 104 mmol/L (98-107) Carbon Dioxide Level 28 mmol/L (21-32) Anion Gap 8 (6-14) Blood Urea Nitrogen 4 mg/dL (7-20) Creatinine 0.6 mg/dL (0.6-1.0) Estimated GFR (Cockcroft-Gault) 101.3 BUN/Creatinine Ratio 7 (6-20) Glucose Level 131 mg/dL (70-99) Lactic Acid Level 1.3 mmol/L (0.4-2.0) Calcium Level 9.4 mg/dL (8.5-10.1) Magnesium Level 1.6 mg/dL (1.8-2.4) Total Bilirubin 0.6 mg/dL (0.2-1.0) Aspartate Amino Transf (AST/SGOT) 20 U/L (15-37) Alanine Aminotransferase (ALT/SGPT) 17 U/L (14-59) Alkaline Phosphatase 113 U/L (46-116) Total Protein 7.3 g/dL (6.4-8.2) Albumin 3.5 g/dL (3.4-5.0) Albumin/Globulin Ratio 0.9 (1.0-1.7) Medications Current Medications Morphine Sulfate (Morphine Sulfate) 4 mg 1X ONCE IV Last administered on 01/02/19at 10:34; Start 01/02/19 at 10:15; Stop 01/02/19 at 10:16; Status DC Ondansetron HCl (Zofran) 4 mg 1X ONCE IV Last administered on 01/02/19at 10:34; Start 01/02/19 at 10:15; Stop 01/02/19 at 10:16; Status DC Iohexol (Omnipaque 300 Mg/ml) 75 ml 1X ONCE IV ; Start 01/02/19 at 11:15; Stop 01/02/19 at 11:16; Status DC Info (CONTRAST GIVEN -- Rx MONITORING) 1 each PRN DAILY PRN MC SEE COMMENTS; Start 01/02/19 at 11:15; Stop 01/04/19 at 11:14 Magnesium Sulfate/ Dextrose 100 ml @ 100 mls/hr 1X ONCE IV Last administered on 01/02/19at 11:49; Start 01/02/19 at 11:45; Stop 01/02/19 at 12:44; Status DC Ceftriaxone Sodium (Rocephin) 1 gm 1X ONCE IVP Last administered on 01/02/19at 11:49; Start 01/02/19 at 11:45; Stop 01/02/19 at 11:46; Status DC Ondansetron HCl (Zofran) 4 mg PRN Q8HRS PRN IV NAUSEA/VOMITING; Start 01/02/19 at 13:15; Stop 01/03/19 at 13:14 Fentanyl Citrate (Fentanyl 2ml Vial) 50 mcg PRN Q1HR PRN IV PAIN; Start 01/02/19 at 13:15; Stop 01/03/19 at 13:14 Sodium Chloride (Normal Saline Flush) 3 ml QSHIFT PRN IV AFTER MEDS AND BLOOD DRAWS; Start 01/02/19 at 15:15 Sodium Chloride 1,000 ml @ 100 mls/hr Q10H IV Last administered on 01/03/19at 01:53; Start 01/02/19 at 16:00 Ondansetron HCl (Zofran) 4 mg PRN Q4HRS PRN IV NAUSEA/VOMITING; Start 01/02/19 at 15:15 Acetaminophen (Tylenol) 650 mg PRN Q4HRS PRN PO TEMP OVER 100.4F OR MILD PAIN; Start 01/02/19 at 15:15 Al Hydroxide/Mg Hydroxide (Mylanta Plus Xs) 30 ml PRN DAILY PRN PO HEARTBURN / GAS; Start 01/02/19 at 15:15 Clonidine HCl (Catapres) 0.1 mg PRN Q6HRS PRN PO SBP>160 OR DBP>90; Start 01/02/19 at 15:15 Docusate Sodium (Colace) 100 mg PRN BID PRN PO CONSTIPATION; Start 01/02/19 at 15:15 Albuterol Sulfate (Ventolin Neb Soln) 2.5 mg PRN Q4HRS PRN NEB SHORTNESS OF BREATH; Start 01/02/19 at 15:15 Guaifenesin (Robitussin) 200 mg PRN Q4HRS PRN PO COUGH; Start 01/02/19 at 15:15 Lorazepam (Ativan) 0.5 mg PRN Q4HRS PRN PO ANXIETY / AGITATION; Start 01/02/19 at 15:15 Lorazepam (Ativan Inj) 2 mg PRN Q4HRS PRN IV ANXIETY / AGITATION; Start 01/02/19 at 15:15 Enoxaparin Sodium (Lovenox 40mg Syringe) 40 mg DAILY SQ ; Start 01/03/19 at 09:00 Ceftriaxone Sodium (Rocephin) 1 gm Q24H IVP ; Start 01/03/19 at 12:00; Stop 01/02/19 at 15:25; Status DC Folic Acid (Folic Acid) 1 mg DAILY PO Last administered on 01/02/19at 15:52; Start 01/02/19 at 16:30 Hydrochlorothiazide (Hydrodiuril) 25 mg DAILY PO Last administered on 01/02/19at 15:52; Start 01/02/19 at 16:30 Acetaminophen/ Hydrocodone Bitart (Lortab 5/325) 1 tab PRN Q6HRS PRN PO MODERATE-SEVERE PAIN Last administered on 01/03/19at 01:53; Start 01/02/19 at 15:15 Acetaminophen/ Hydrocodone Bitart (Lortab 5/325) 1 tab Q6HRS PO ; Start 01/02/19 at 18:00; Stop 01/02/19 at 15:53; Status DC Levothyroxine Sodium (Synthroid) 50 mcg DAILY06 PO Last administered on 01/03/19at 06:49; Start 01/02/19 at 16:30 Methotrexate (Rheumatrex) 10 mg WEEKLY PO ; Start 01/09/19 at 09:00; Status UNV Metoprolol Succinate (Toprol Xl) 100 mg BID PO ; Start 01/02/19 at 21:00 Prednisone (Prednisone) 10 mg QID PO Last administered on 01/02/19at 20:18; Start 01/02/19 at 17:00 Verapamil HCl (Calan Sr) 240 mg DAILY PO Last administered on 01/02/19at 15:52; Start 01/02/19 at 16:30 Hydralazine HCl (Apresoline Inj) 10 mg PRN Q4HRS PRN IVP ELEVATED BP, SEE COMMENTS; Start 01/02/19 at 15:30 Meropenem 500 mg/ Sodium Chloride 50 ml @ 100 mls/hr Q6HRS IV Last administered on 01/03/19at 06:49; Start 01/02/19 at 18:00 Vancomycin HCl (Vanco Per Pharmacy) 1 each PRN DAILY PRN MC SEE COMMENTS Last administered on 01/02/19at 16:16; Start 01/02/19 at 15:30 Vancomycin HCl 1 gm/Sodium Chloride 250 ml @ 250 mls/hr 1X ONCE IV Last administered on 01/02/19at 15:52; Start 01/02/19 at 16:00; Stop 01/02/19 at 16:59; Status DC Vancomycin HCl 750 mg/Sodium Chloride 250 ml @ 250 mls/hr Q12H IV Last administered on 01/03/19at 03:56; Start 01/03/19 at 04:00 Vancomycin HCl (Vancomycin Trough Level) 1 each 1X ONCE MC ; Start 01/04/19 at 03:30; Stop 01/04/19 at 03:31 Active Scripts Active [place] 5-325 Tablet (Acetaminophen/Hydrocodone Bitart) 1 Each Tablet 1 Tab PO Q6HRS [place] 5-325 Tablet (Acetaminophen/Hydrocodone Bitart) 1 Each Tablet 1 Tab PO PRN Q6HRS PRN Reported Prednisone 20 Mg Tablet 0.5 Tab PO QID Methotrexate (Methotrexate Sodium) 2.5 Mg Tablet 4 Tab PO WEEKLY Hydrochlorothiazide Tablet (Hydrochlorothiazide) 25 Mg Tablet 25 Mg PO DAILY Metoprolol Succinate ( Xl ) (Metoprolol Succinate) 100 Mg Tab.er.24h 1 Tab PO BID Folic Acid 1 Mg Tablet 1 Tab PO DAILY Verapamil Er (Verapamil Hcl) 240 Mg Cap24h.pel 1 Cap PO DAILY 180 MG Levothyroxine Sodium 50 Mcg Tablet 1 Tab PO DAILY Vitals/I & O Vital Sign - Last 24 Hours 01/02/19 01/02/19 01/02/19 01/02/19 09:50 09:56 10:26 10:34 Temp 97.7 97.7 Pulse 89 93 95 Resp 16 16 16 B/P (MAP) 206/98 (134) 206/98 (134) 198/125 (149) Pulse Ox 99 94 93 99 O2 Delivery Room Air Room Air Room Air Nasal Cannula 01/02/19 01/02/19 01/02/19 01/02/19 10:56 11:30 12:30 13:00 Pulse 88 89 77 78 Resp 15 16 16 B/P (MAP) 176/100 (125) 152/87 (108) 190/106 (134) 150/87 (108) Pulse Ox 100 99 99 100 O2 Delivery Nasal Cannula Nasal Cannula Nasal Cannula Nasal Cannula O2 Flow Rate 2.0 2.0 2.0 2.0 01/02/19 01/02/19 01/02/19 01/02/19 13:30 14:00 14:50 15:03 Temp 97.8 97.8 Pulse 79 74 86 Resp 16 17 16 B/P (MAP) 172/94 (120) 173/91 (118) 167/86 (113) Pulse Ox 100 99 98 O2 Delivery Nasal Cannula Nasal Cannula Room Air Room Air O2 Flow Rate 2.0 2.0 98.0 01/02/19 01/02/19 01/02/19 01/02/19 15:52 19:00 19:50 20:15 Temp 98.6 98.6 Pulse 86 74 74 Resp 16 B/P (MAP) 167/86 102/59 (73) 102/59 Pulse Ox 98 O2 Delivery Room Air Nasal Cannula O2 Flow Rate 2.0 01/02/19 01/03/19 01/03/19 01/03/19 23:00 01:53 03:00 03:56 Temp 98.2 98.0 98.2 98.0 Pulse 73 63 Resp 16 20 19 20 B/P (MAP) 98/63 (75) 119/64 (82) Pulse Ox 100 97 O2 Delivery Nasal Cannula Room Air Room Air Room Air O2 Flow Rate 2.0 01/03/19 01/03/19 07:45 07:57 Temp 97.7 97.7 Pulse 60 Resp 16 B/P (MAP) 132/73 (92) Pulse Ox 98 O2 Delivery Nasal Cannula Room Air O2 Flow Rate 2.0 Intake and Output 01/02/19 01/02/19 01/03/19 14:59 22:59 06:59 Intake Total 250 ml 950 ml Output Total 300 ml Balance 250 ml 650 ml MAGALIE GONG MD Jan 03, 2019 09:01
[2019-01-03] MEDS: METOPROLOL SUCC 24HR ER 100 MG TAB.ER.24H. PO SCH ×2 (09:16→21:11)
[2019-01-03] MEDS: VERAPAMIL SR 120 MG TABLET.ER. PO SCH (09:17)
[2019-01-03] MEDS: hydroCHLOROthiazide 25 MG TABLET PO SCH (09:17)
[2019-01-03] MEDS: predniSONE 10 MG TABLET PO SCH ×4 (09:17→21:11)
[2019-01-03] MEDS: FOLIC ACID 1 MG TABLET. PO SCH (09:17)
[2019-01-03] MEDS: ENOXAPARIN 40 MG/0.4 ML SYRINGE. SQ SCH (09:22)
--- NOTE | 2019-01-03 09:31 | RAD ---
Examination: CT chest without contrast HISTORY: History of pneumonia COMPARISON: None available TECHNIQUE: Axial CT images of chest were performed with contrast. Coronal and sagittal reformats are performed. Exposure: One or more of the following individualized dose reduction techniques were utilized for this examination: 1. Automated exposure control 2. Adjustment of the mA and/or kV according to patient size 3. Use of iterative reconstruction technique FINDINGS: The central airways are patent. Mild cardiomegaly. The ascending aorta measures 3.2 cm in transverse dimension. Coronary artery calcifications identified. No evidence for significant mediastinal lymphadenopathy. Collapse of the right middle lobe of the lung with probable consolidation with air bronchograms the right middle lobe of the lung could be postobstructive atelectasis or pneumonia. No evidence of pleural effusion or pneumothorax. Linear atelectasis right upper lobe of the lung. Mild pleural thickening or atelectasis is identified along the left lower lobe lung. The noncontrasted liver, spleen, adrenals grossly appears unremarkable. Mild degenerative changes thoracic spine. IMPRESSION: 1. Collapse of the right middle lobe of the lung with a bronchograms could be postobstructive atelectasis or pneumonia. Electronically signed by: Popeye Kearns MD (01/03/2019 9:28 AM) [place] [id number]
[2019-01-03 09:35] LABS: ALBUMIN/GLOBULIN RATIO 0.8 (1.0-1.7); CALCIUM 9.1 mg/dL (8.5-10.1); CREATININE 0.5 mg/dL (0.6-1.0); POTASSIUM 3.4 mmol/L (3.5-5.1); TOTAL BILIRUBIN 0.5 mg/dL (0.2-1.0); TOTAL PROTEIN 6.7 g/dL (6.4-8.2)
--- NOTE | 2019-01-03 10:00 | PDOC2 ---
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 2-3 days of upper abd pain w/ radiation "to armpits" and left shoulder/back. No precipitating events. No similar symptoms in the past. Unclear aggravating or alleviating factors. No n/v. Might have heartburn sometimes. Doesn't want hospital food but would like food from home. No diarrhea, constipation, or bleeding. Chart mentions hip pain - she denies but "hurts all over." Doesn't know about weight loss but clothes fit the same. I asked about previous EGD or colonoscopy - says she had a procedure for a spot on her lung. She's "out of her pills." PMH: PMH: per chart - RA, osteoporosis, osteomyelitis, hypothyroidism, HTN, giant cell arteritis, cataracts, ankle fracture, DM, UTI, multiple myeloma bone marrow biopsy FH: Family History: No pertinent hx Social History: Smoke: Quit ALCOHOL: none Drugs: None ROS: GEN: Denies fevers, chills, sweats HEENT: Denies blurred vision, sore throat CV: Denies chest pain RESP: Denies shortness of air, cough GI: Per HPI : Denies hematuria, dysuria ENDO: Denies weight changes NEURO: Denies confusion, dizziness MSK: ?hip pain SKIN: Denies jaundice, pruritus Vitals: Vitals: Vital Signs Date Time Temp Pulse Resp B/P (MAP) Pulse Ox O2 Delivery O2 Flow Rate FiO2 01/03/19 09:22 60 132/73 01/03/19 07:57 97.7 16 98 Room Air 97.7 01/03/19 07:45 2.0 Labs: Labs: Laboratory Tests Test 01/02/19 10:10 01/03/19 07:55 White Blood Count 5.9 x10^3/uL (4.0-11.0) 4.7 x10^3/uL (4.0-11.0) Red Blood Count 5.42 x10^6/uL (3.50-5.40) 5.11 x10^6/uL (3.50-5.40) Hemoglobin 12.6 g/dL (12.0-15.5) 11.9 g/dL (12.0-15.5) Hematocrit 38.9 % (36.0-47.0) 36.9 % (36.0-47.0) Mean Corpuscular Volume 72 fL (79-100) 72 fL (79-100) Mean Corpuscular Hemoglobin 23 pg (25-35) 23 pg (25-35) Mean Corpuscular Hemoglobin Concent 33 g/dL (31-37) 32 g/dL (31-37) Red Cell Distribution Width 17.0 % (11.5-14.5) 17.1 % (11.5-14.5) Platelet Count 219 x10^3/uL (140-400) 216 x10^3/uL (140-400) Neutrophils (%) (Auto) 73 % (31-73) 81 % (31-73) Lymphocytes (%) (Auto) 19 % (24-48) 16 % (24-48) Monocytes (%) (Auto) 6 % (0-9) 3 % (0-9) Eosinophils (%) (Auto) 2 % (0-3) 0 % (0-3) Basophils (%) (Auto) 1 % (0-3) 0 % (0-3) Neutrophils # (Auto) 4.3 x10^3/uL (1.8-7.7) 3.8 x10^3/uL (1.8-7.7) Lymphocytes # (Auto) 1.1 x10^3/uL (1.0-4.8) 0.7 x10^3/uL (1.0-4.8) Monocytes # (Auto) 0.4 x10^3/uL (0.0-1.1) 0.2 x10^3/uL (0.0-1.1) Eosinophils # (Auto) 0.1 x10^3/uL (0.0-0.7) 0.0 x10^3/uL (0.0-0.7) Basophils # (Auto) 0.0 x10^3/uL (0.0-0.2) 0.0 x10^3/uL (0.0-0.2) Platelet Estimate Adequate (ADEQUATE) Hypochromasia Slight Anisocytosis Slight Microcytosis Present Ovalocytes Few Prothrombin Time 12.4 SEC (11.7-14.0) Prothromb Time International Ratio 1.0 (0.8-1.1) Activated Partial Thromboplast Time 29 SEC (24-38) Sodium Level 140 mmol/L (136-145) 143 mmol/L (136-145) Potassium Level 3.5 mmol/L (3.5-5.1) 3.4 mmol/L (3.5-5.1) Chloride Level 104 mmol/L (98-107) 106 mmol/L (98-107) Carbon Dioxide Level 28 mmol/L (21-32) 28 mmol/L (21-32) Anion Gap 8 (6-14) 9 (6-14) Blood Urea Nitrogen 4 mg/dL (7-20) 4 mg/dL (7-20) Creatinine 0.6 mg/dL (0.6-1.0) 0.5 mg/dL (0.6-1.0) Estimated GFR (Cockcroft-Gault) 101.3 125.0 BUN/Creatinine Ratio 7 (6-20) 8 (6-20) Glucose Level 131 mg/dL (70-99) 113 mg/dL (70-99) Lactic Acid Level 1.3 mmol/L (0.4-2.0) Calcium Level 9.4 mg/dL (8.5-10.1) 9.1 mg/dL (8.5-10.1) Magnesium Level 1.6 mg/dL (1.8-2.4) Total Bilirubin 0.6 mg/dL (0.2-1.0) 0.5 mg/dL (0.2-1.0) Aspartate Amino Transf (AST/SGOT) 20 U/L (15-37) 16 U/L (15-37) Alanine Aminotransferase (ALT/SGPT) 17 U/L (14-59) 14 U/L (14-59) Alkaline Phosphatase 113 U/L (46-116) 98 U/L (46-116) Total Protein 7.3 g/dL (6.4-8.2) 6.7 g/dL (6.4-8.2) Albumin 3.5 g/dL (3.4-5.0) 3.0 g/dL (3.4-5.0) Albumin/Globulin Ratio 0.9 (1.0-1.7) 0.8 (1.0-1.7) BLOOD CULTURE Preliminary NO GROWTH AFTER 1 DAY Allergies: Coded Allergies: No Known Drug Allergies (Unverified , 11/21/17) Medications: Current Medications Medications (Trade) Dose Ordered Sig/Idris Route PRN Reason Start Time Stop Time Status Last Admin Dose Admin Morphine Sulfate (Morphine Sulfate) 4 mg 1X ONCE IV 01/02/19 10:15 01/02/19 10:16 DC 01/02/19 10:34 Ondansetron HCl (Zofran) 4 mg 1X ONCE IV 01/02/19 10:15 01/02/19 10:16 DC 01/02/19 10:34 Magnesium Sulfate/ Dextrose 100 ml @ 100 mls/hr 1X ONCE IV 01/02/19 11:45 01/02/19 12:44 DC 01/02/19 11:49 Ceftriaxone Sodium (Rocephin) 1 gm 1X ONCE IVP 01/02/19 11:45 01/02/19 11:46 DC 01/02/19 11:49 Sodium Chloride 1,000 ml @ 100 mls/hr Q10H IV 01/02/19 16:00 01/03/19 01:53 Enoxaparin Sodium (Lovenox 40mg Syringe) 40 mg DAILY SQ 01/03/19 09:00 01/03/19 09:22 Folic Acid (Folic Acid) 1 mg DAILY PO 01/02/19 16:30 01/03/19 09:22 Hydrochlorothiazide (Hydrodiuril) 25 mg DAILY PO 01/02/19 16:30 01/03/19 09:22 Acetaminophen/ Hydrocodone Bitart (Lortab 5/325) 1 tab PRN Q6HRS PRN PO MODERATE-SEVERE PAIN 01/02/19 15:15 01/03/19 01:53 Levothyroxine Sodium (Synthroid) 50 mcg DAILY06 PO 01/02/19 16:30 01/03/19 06:49 Metoprolol Succinate (Toprol Xl) 100 mg BID PO 01/02/19 21:00 01/03/19 09:22 Prednisone (Prednisone) 10 mg QID PO 01/02/19 17:00 01/03/19 09:22 Verapamil HCl (Calan Sr) 240 mg DAILY PO 01/02/19 16:30 01/03/19 09:22 Meropenem 500 mg/ Sodium Chloride 50 ml @ 100 mls/hr Q6HRS IV 01/02/19 18:00 01/03/19 06:49 Vancomycin HCl (Vanco Per Pharmacy) 1 each PRN DAILY PRN MC SEE COMMENTS 01/02/19 15:30 01/02/19 16:16 Vancomycin HCl 1 gm/Sodium Chloride 250 ml @ 250 mls/hr 1X ONCE IV 01/02/19 16:00 01/02/19 16:59 DC 01/02/19 15:52 Vancomycin HCl 750 mg/Sodium Chloride 250 ml @ 250 mls/hr Q12H IV 01/03/19 04:00 01/03/19 03:56 Magnesium Sulfate 50 ml @ 25 mls/hr 1X ONCE IV 01/03/19 09:00 01/03/19 10:59 01/03/19 09:57 Potassium Chloride (Klor-Con) 40 meq 1X ONCE PO 01/03/19 09:00 01/03/19 09:09 DC 01/03/19 09:22 Imaging: Imaging: Chest CT IMPRESSION: 1. Collapse of the right middle lobe of the lung with a bronchograms could be po stobstructive atelectasis or pneumonia. CXR IMPRESSION: No radiographic evidence of an acute cardiopulmonary process. CT A/P Impression: 1. No significant inflammatory type change is identified. There may be degree of small bowel wall thickening in the left abdomen as could be seen with enteritis in the appropriate clinical setting. There is increased hyperdensity in the appendiceal lumen possibly due to hyperdense stool, no adjacent inflammatory change or significant appendiceal dilatation. 2. There is mild peripheral right lower lobe infiltrate or atelectasis. 3. There is coronary calcification. PE: GEN: NAD - spent significant time chewing potassium pills before participating in phone interview HEENT: Atraumatic, PERRL LUNGS: CTAB anteriorly HEART: RRR ABD: NABS, S/ND, epigastric tenderness to BUQ and wrapping around to left flank/scapular region EXTREMITY: No edema SKIN: No rashes, no jaundice NEURO/PSYCH: A & O �3, speaks English A/P: A/P: Upper abd pain Microcytic anemia ?UTI H/o multiple myeloma, h/o RA (?on methotrexate and prednisone) CRC screen - ?none -- Difficult history w/ language barrier. Try PPI and GI cocktail. Check iron profile. CRIS CORCORAN Jan 03, 2019 10:00
--- NOTE | 2019-01-03 10:13 | CONS ---
DATE OF CONSULTATION: PULMONARY CONSULTATION ATTENDING PHYSICIAN: Dr. Ku. REASON FOR CONSULTATION: Possible pneumonia. HISTORY OF PRESENT ILLNESS: The patient is a 63-year-old Hebrew female who does not speak French. The patient has history of myeloma for which she has been on chemo. Details of which are not available. She was brought into the hospital with complaint of pain in her right hip, which progressed to her abdomen. She had a CT abdomen and pelvis, which was performed and lower sections of the lung suggested possible infiltrate versus atelectasis in the right base. I did a CT chest pain, which was reviewed by me. There is atelectasis involving the medial subsegment of the right middle lobe. Otherwise, there is no definite infiltrate seen. She does not appear to be in any distress and denies any tobacco history. PAST MEDICAL HISTORY: History of MGUS, details of which are not available. History of hypertension. PAST SURGICAL HISTORY: No surgeries. ALLERGIES: None. SOCIAL HISTORY: Nonsmoker. MEDICATIONS: Reviewed as listed in the [facility]AD including broad-spectrum antibiotics. REVIEW OF SYSTEMS: Unable to obtain from the patient. PHYSICAL EXAMINATION: VITAL SIGNS: Reviewed. Pulse ox 98% on room air. NECK: Supple. LUNGS: With occasional wheezes. CARDIOVASCULAR: Regular rate. ABDOMEN: Soft, nontender. EXTREMITIES: With no pitting edema. LABORATORY DATA: Reviewed. White cell count 4.7, hemoglobin 11.9, platelets are 216. BUN 4, creatinine 0.5. IMPRESSION: 1. Abnormal CT chest with minimal collapse of the medial subsegment of the right middle lobe and likely related to mucus plugging. She has air bronchograms. No radiographic suspicion for malignancy. 2. History of MGUS, treated with chemo, details of which are not available. 3. Bronchospasm, likely related to mucus plugging. RECOMMENDATIONS: 1. We will add DuoNeb. 2. Continue prednisone. 3. Continue antibiotics, which could be deescalated soon. 4. Obtain procalcitonin level. 5. Follow Oncology recommendation regarding details of MGUS and the chemo that she has received. 6. Radiographically, no signs of any chemo-induced pneumonitis. 7. Discussed with RN. BONG VEGA MD DR: ELZBIETA/alexis JOB#: [id number] / [id number]
[2019-01-03 11:29] VITALS: BP 122/74
[2019-01-03] MEDS ORDERED: cefTRIAXone IV Push 1 GM VIAL. IVP SCH (12:00)
--- NOTE | 2019-01-03 12:04 | PDOC ---
Infectious Disease Note Vital Sign Vital Signs Vital Signs Date Time Temp Pulse Resp B/P (MAP) Pulse Ox O2 Delivery O2 Flow Rate FiO2 01/03/19 11:29 97.7 76 16 122/74 (90) 97 Room Air 97.7 01/03/19 07:45 2.0 Labs Lab Laboratory Tests Test 01/03/19 07:55 White Blood Count 4.7 x10^3/uL (4.0-11.0) Red Blood Count 5.11 x10^6/uL (3.50-5.40) Hemoglobin 11.9 g/dL (12.0-15.5) Hematocrit 36.9 % (36.0-47.0) Mean Corpuscular Volume 72 fL (79-100) Mean Corpuscular Hemoglobin 23 pg (25-35) Mean Corpuscular Hemoglobin Concent 32 g/dL (31-37) Red Cell Distribution Width 17.1 % (11.5-14.5) Platelet Count 216 x10^3/uL (140-400) Neutrophils (%) (Auto) 81 % (31-73) Lymphocytes (%) (Auto) 16 % (24-48) Monocytes (%) (Auto) 3 % (0-9) Eosinophils (%) (Auto) 0 % (0-3) Basophils (%) (Auto) 0 % (0-3) Neutrophils # (Auto) 3.8 x10^3/uL (1.8-7.7) Lymphocytes # (Auto) 0.7 x10^3/uL (1.0-4.8) Monocytes # (Auto) 0.2 x10^3/uL (0.0-1.1) Eosinophils # (Auto) 0.0 x10^3/uL (0.0-0.7) Basophils # (Auto) 0.0 x10^3/uL (0.0-0.2) Sodium Level 143 mmol/L (136-145) Potassium Level 3.4 mmol/L (3.5-5.1) Chloride Level 106 mmol/L (98-107) Carbon Dioxide Level 28 mmol/L (21-32) Anion Gap 9 (6-14) Blood Urea Nitrogen 4 mg/dL (7-20) Creatinine 0.5 mg/dL (0.6-1.0) Estimated GFR (Cockcroft-Gault) 125.0 BUN/Creatinine Ratio 8 (6-20) Glucose Level 113 mg/dL (70-99) Calcium Level 9.1 mg/dL (8.5-10.1) Total Bilirubin 0.5 mg/dL (0.2-1.0) Aspartate Amino Transf (AST/SGOT) 16 U/L (15-37) Alanine Aminotransferase (ALT/SGPT) 14 U/L (14-59) Alkaline Phosphatase 98 U/L (46-116) Total Protein 6.7 g/dL (6.4-8.2) Albumin 3.0 g/dL (3.4-5.0) Albumin/Globulin Ratio 0.8 (1.0-1.7) Procalcitonin < 0.10 ng/mL (0.00-0.10) Micro Microbiology 01/02/19 Blood Culture - Preliminary, Resulted NO GROWTH AFTER 1 DAY Objective Assessment ? UTI - likely contamination - asymptomatic and mod squamous cells Right pneumonitis vs plugging Multiple myeloma immunosuppression Plan Plan of Care D/c Vanc and meropenem Begin Augmentin/doxy F/u labs and cults D/w Dr. 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
[2019-01-03] MEDS: PANTOPRAZOLE 40 MG TABLET.DR. PO SCH (12:10)
[2019-01-03] MEDS: AMOXICILLIN/K CLAV 875/125MG TABLET. PO SCH ×2 (13:15→21:11)
[2019-01-03] MEDS: DOXYCYCLINE HYCLATE 100 MG TABLET PO SCH ×2 (13:15→21:11)
[2019-01-03] MEDS: IPRATRPIUM/ALBUTEROL 0.5/2.5MG 3 ML NEBU. NEB SCH ×3 (13:18→20:27)
--- NOTE | 2019-01-03 14:43 | NUR ---
SW following pt for dc planning. Chart reviewed. Pt lives at home with family and admitted for UTI, hypomagnesemia. No SW needs noted at this time. Will continue to follow pending dc needs.
[2019-01-03 15:30] VITALS: BP 98/54
[2019-01-03 19:51] VITALS: BP 129/64
--- NOTE | 2019-01-03 23:08 | CONS ---
DATE OF CONSULTATION: 01/03/2019 MEDICAL ONCOLOGY CONSULTATION REPORT REQUESTING PHYSICIAN: Dr. Mundo Ku. REASON FOR CONSULTATION: Multiple myeloma. HISTORY OF PRESENT ILLNESS: The patient is a 63-year-old female from [facility] who was diagnosed with multiple myeloma by a bone marrow biopsy on 05/06/2018, which revealed lambda restricted plasma cytosis of approximately 20%. Skeletal survey in 04/2018 revealed small lytic lesions in the calvarium. Her IgA level was 3280. She began treatment with Velcade, Revlimid, and dexamethasone and Revlimid had to be discontinued because of reaction which caused joint pains and skin burning and the patient opted not to restart Velcade. She completed 4 cycles of chemotherapy with Velcade and dexamethasone and then she opted against stem cell transplantation. She was started on maintenance treatment with Velcade in 09/2018. She gets Velcade every 2 weeks. She was admitted to [facility] on 01/02/2019 with abdominal pain of 2-3 days' duration. No diarrhea or constipation. No nausea or vomiting. She underwent CT scan of the abdomen and pelvis on 01/02/2019 that revealed no significant inflammatory changes. CT scan of the chest on 01/03/2019 revealed collapse of the right middle lobe of the lung, which could be from postobstructive atelectasis or pneumonia. PAST MEDICAL HISTORY: Rheumatoid arthritis, osteoporosis, osteomyelitis, hypothyroidism, hypertension, giant cell arteritis, cataract, ankle fracture, diabetes, urinary tract infection, and multiple myeloma. FAMILY HISTORY: Negative for multiple myeloma. SOCIAL HISTORY: She has quit smoking. REVIEW OF SYSTEMS: A 12-point review of system was performed. Pertinent positives are mentioned in the history of present illness. Rest of the system review is negative. PHYSICAL EXAMINATION: GENERAL APPEARANCE: The patient is a 63-year-old female who is in no acute cardiorespiratory distress. VITAL SIGNS: Blood pressure 122/74 and temperature 97.7. HEAD: Atraumatic, normocephalic. EYES: No icterus. NECK: Supple. CHEST: Bilaterally symmetrical. HEART: S1, S2 normal. ABDOMEN: Soft, nontender. CENTRAL NERVOUS SYSTEM: No focal deficits. LYMPHATICS: No lymphadenopathy. SKIN: No rashes. PSYCHOLOGIC: Mood and affect are appropriate. LABORATORY DATA: WBC 4.7, hemoglobin 11.9, and platelet count 216. Creatinine 0.5, calcium 9.1, iron 29, TIBC 357, iron saturation 8, total protein 6.7, albumin 3.0. IMPRESSION AND PLAN: 1. Multiple myeloma diagnosed in 04/2018. She received chemotherapy under the direction of Dr. Erum William. She is currently on maintenance chemotherapy with Velcade every other week. The patient reports that she is due for treatment on 01/04/2019 and I have recommended to defer it by 1 week. 2. Abdominal pain. CT scan of the abdomen and pelvis does not reveal any acute changes on 01/02/2019. Appreciate GI consultation. 3. Abnormal CT scan with minimal collapse of the medial segment of the right middle lobe, likely related to mucus plugging. Appreciate pulmonary consultation. She has been started on DuoNeb, prednisone, and antibiotics. 4. Urinary tract infection, management per primary team. PAOLA SULLIVAN MD DR: BRITTA/alexis JOB#: [id number] / [id number]
[2019-01-03 23:43] VITALS: BP 125/68
[2019-01-04 03:10] VITALS: BP 119/85
--- NOTE | 2019-01-04 04:52 | CONS ---
DATE OF CONSULTATION: 01/03/2019 LOCATION: The patient's room is 668. REQUESTING PHYSICIAN: Dr. Ku. REASON FOR CONSULTATION: UTI and pneumonitis. HISTORY OF PRESENT ILLNESS: The patient is a 63-year-old Vietnamese female who is undergoing therapy for multiple myeloma. Several days ago, she began to have right-sided hip and abdominal pain and was brought to [facility]. She underwent a CT scan that showed some atelectasis of the right middle lobe on the abdominal CT and there was no significant inflammatory type change identified in her abdominal area. There was a degree of small bowel wall thickening on the left side. She then underwent a chest CT without contrast showed collapse of the right middle lobe in the lung with bronchograms. She had received doses of Rocephin. She was then placed on vancomycin and meropenem. Urinalysis was collected and had 20-40 wbc's, 6-10 ____, but many squamous epithelial cells, nitrites was negative, leukocyte esterase was large. Currently, she is lying in the bed. She is feeling better. She did have occasional chills and sweats for a number of days. She did not have any problems ____. She denies any dysuria or frequency. PAST MEDICAL HISTORY: Positive for multiple myeloma for which she is getting therapy for, hypertension, hypothyroidism, giant cell arteritis, cataracts, ankle fracture, diabetes, UTI, history of osteomyelitis, and rheumatoid arthritis, all per the chart. REVIEW OF SYSTEMS: Otherwise negative. ALLERGIES: No known drug allergies. SOCIAL HISTORY: Quit smoking, no alcohol. FAMILY HISTORY: Noncontributory. CURRENT MEDICATIONS: Include meropenem, vancomycin, DuoNeb, Rocephin x 1, Catapres, Colace, Lovenox, folic acid, guaifenesin, hydralazine, hydrochlorothiazide, Synthroid, Ativan, metoprolol, Protonix, prednisone, and verapamil. PHYSICAL EXAMINATION: VITAL SIGNS: Afebrile since her presentation, temperature 97.7, pulse 76, respirations 16, blood pressure 122/74, and satting 97% on room air. CONSTITUTIONAL: She is lying in bed. She smiled. She is in no acute distress. HEENT: Pupils are equal and reactive. Oral cavity, pharynx is clear. NECK: Supple. LUNGS: Decreased in the bases. HEART: S1 and S2. She complains of pain over her right flank area. ABDOMEN: Soft and nontender. No guarding or rebound. EXTREMITIES: No clubbing, cyanosis, or gross edema. SKIN: Warm to touch, without signs of rash. NEUROLOGIC: She is nonfocal. Affect is pleasant. LABORATORY DATA: White count 4.7, hemoglobin 11.9, platelets of 216, neutrophils 81, and lymphs are 16. Creatinine 0.5 and glucose of 113. Lactic acid was 1.3. Urine reviewed in the history of present illness. Cultures are negative. RADIOLOGY: Reviewed in the history of present illness. IMPRESSION: 1. Urinary tract infection, questionable, likely contamination, asymptomatic and moderate squamous cells. 2. Right pneumonitis versus plugging. 3. Multiple myeloma. 4. Immunosuppression. RECOMMENDATIONS: Discontinue the vancomycin and meropenem. Begin Augmentin and doxycycline. Follow labs and cultures. This was discussed with Dr. 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 GITA OMALLEY MD DR: MINDY/alexis JOB#: [id number] / [id number]
[2019-01-04] MEDS: IPRATRPIUM/ALBUTEROL 0.5/2.5MG 3 ML NEBU. NEB SCH ×3 (07:38→15:51)
[2019-01-04 07:42] VITALS: BP 154/91
[2019-01-04] MEDS: AMOXICILLIN/K CLAV 875/125MG TABLET. PO SCH (08:37)
[2019-01-04] MEDS: VERAPAMIL SR 120 MG TABLET.ER. PO SCH (08:37)
[2019-01-04] MEDS: hydroCHLOROthiazide 25 MG TABLET PO SCH (08:37)
[2019-01-04] MEDS: LEVOTHYROXINE 50 MCG TABLET PO SCH (08:38)
[2019-01-04] MEDS: DOXYCYCLINE HYCLATE 100 MG TABLET PO SCH (08:38)
[2019-01-04] MEDS: METOPROLOL SUCC 24HR ER 100 MG TAB.ER.24H. PO SCH (08:38)
[2019-01-04] MEDS: predniSONE 10 MG TABLET PO SCH ×3 (08:38→17:07)
[2019-01-04] MEDS: ENOXAPARIN 40 MG/0.4 ML SYRINGE. SQ SCH (08:38)
[2019-01-04] MEDS: PANTOPRAZOLE 40 MG TABLET.DR. PO SCH (08:38)
[2019-01-04] MEDS: FOLIC ACID 1 MG TABLET. PO SCH (08:38)
[2019-01-04] MEDS: IV NORMAL SALINE 1000ML BAG 1,000 ML IV SCH (08:39)
[2019-01-04] MEDS: HYDROcodone/APAP 5/325MG 1 TAB TABLET PO PRN (08:54)
--- NOTE | 2019-01-04 09:01 | PDOC ---
PROGRESS NOTES Chief Complaint Chief Complaint Right hip pain Abdominal pain - possible enteritis on CT, was given empiric antibiotics IgA multiple myeloma vision loss rheumatoid arthritis, on methotrexate osteoporosis hypothyroidism hypertension h/o giant cell arteritis GERD cataracts type 2 diabetes 28 minutes examination, counseling, translation and coordination of care History of Present Illness History of Present Illness Ms Evans is a 63-year-old female from [facility] w/ PMHx vision loss, rheumatoid arthritis, on methotrexate, osteoporosis, osteomyelitis, hypothyroidism, hypertension, giant cell arteritis, GERD, foot lesion, cataract, ankle fracture, type 2 diabetes who was diagnosed with IgA lambda multiple myeloma, stage I with normal cytogenetics by a bone marrow biopsy on 05/06/2018. Skeletal survey on 04/26/2018 revealed multiple lytic lesions. She was started on chemotherapy with Velcade, dexamethasone and Revlimid on 05/28/2018 and Revlimid was discontinued after cycle #2 because of her reaction to Revlimid causing severe joint pains and skin burning. She did not want to resume Revlimid anymore. She has been tolerating outpatient treatment pretty well this year, but was ad mitted through ED on 01/02/19 due to pain that started her right hip and has progressed up to her abdomen. CT suggestive of lung infiltrate vs atelectasis. Today pain is improved. Her significant other wishes to take her home. Potassium 3.4 today and mag 1.6. Still on antibiotics currently. No SOB or CP. IS is helping her take deep breaths, transitioned to oral antibiotics Vitals Vitals Vital Signs Date Time Temp Pulse Resp B/P (MAP) Pulse Ox O2 Delivery O2 Flow Rate FiO2 01/04/19 08:54 16 Room Air 01/04/19 08:39 74 154/91 01/04/19 07:42 97.9 94 97.9 01/03/19 07:45 2.0 Physical Exam General: Alert, Cooperative Heart: Regular rate, Normal S1, Normal S2 Lungs: Clear Abdomen: Soft Extremities: No clubbing, No cyanosis Skin: No rashes, No breakdown Assessment and Plan Assessmemt and Plan Problems Medical Problems: (1) Abdominal pain Status: Acute (2) Hypomagnesemia Status: Acute (3) Malnutrition Status: Chronic (4) Multiple myeloma Status: Chronic Comment Review of Relevant I have reviewed the following items anai (where applicable) has been applied. Labs Laboratory Tests Test 01/02/19 09:50 01/02/19 10:10 01/03/19 07:55 Urine Collection Type Unknown Urine Color Yellow Urine Clarity Clear Urine pH 6.0 Urine Specific [place] 1.010 Urine Protein Negative mg/dL (NEG-TRACE) Urine Glucose (UA) Negative mg/dL (NEG) Urine Ketones (Stick) Negative mg/dL (NEG) Urine Blood Negative (NEG) Urine Nitrite Negative (NEG) Urine Bilirubin Negative (NEG) Urine Urobilinogen Dipstick 0.2 mg/dL (0.2 mg/dL) Urine Leukocyte Esterase Large (NEG) Urine RBC 6-10 /HPF (0-2) Urine WBC 20-40 /HPF (0-4) Urine Squamous Epithelial Cells Many /LPF Urine Bacteria Many /HPF (0-FEW) Urine Mucus Slight /LPF White Blood Count 5.9 x10^3/uL (4.0-11.0) 4.7 x10^3/uL (4.0-11.0) Red Blood Count 5.42 x10^6/uL (3.50-5.40) 5.11 x10^6/uL (3.50-5.40) Hemoglobin 12.6 g/dL (12.0-15.5) 11.9 g/dL (12.0-15.5) Hematocrit 38.9 % (36.0-47.0) 36.9 % (36.0-47.0) Mean Corpuscular Volume 72 fL (79-100) 72 fL (79-100) Mean Corpuscular Hemoglobin 23 pg (25-35) 23 pg (25-35) Mean Corpuscular Hemoglobin Concent 33 g/dL (31-37) 32 g/dL (31-37) Red Cell Distribution Width 17.0 % (11.5-14.5) 17.1 % (11.5-14.5) Platelet Count 219 x10^3/uL (140-400) 216 x10^3/uL (140-400) Neutrophils (%) (Auto) 73 % (31-73) 81 % (31-73) Lymphocytes (%) (Auto) 19 % (24-48) 16 % (24-48) Monocytes (%) (Auto) 6 % (0-9) 3 % (0-9) Eosinophils (%) (Auto) 2 % (0-3) 0 % (0-3) Basophils (%) (Auto) 1 % (0-3) 0 % (0-3) Neutrophils # (Auto) 4.3 x10^3/uL (1.8-7.7) 3.8 x10^3/uL (1.8-7.7) Lymphocytes # (Auto) 1.1 x10^3/uL (1.0-4.8) 0.7 x10^3/uL (1.0-4.8) Monocytes # (Auto) 0.4 x10^3/uL (0.0-1.1) 0.2 x10^3/uL (0.0-1.1) Eosinophils # (Auto) 0.1 x10^3/uL (0.0-0.7) 0.0 x10^3/uL (0.0-0.7) Basophils # (Auto) 0.0 x10^3/uL (0.0-0.2) 0.0 x10^3/uL (0.0-0.2) Platelet Estimate Adequate (ADEQUATE) Hypochromasia Slight Anisocytosis Slight Microcytosis Present Ovalocytes Few Prothrombin Time 12.4 SEC (11.7-14.0) Prothromb Time International Ratio 1.0 (0.8-1.1) Activated Partial Thromboplast Time 29 SEC (24-38) Sodium Level 140 mmol/L (136-145) 143 mmol/L (136-145) Potassium Level 3.5 mmol/L (3.5-5.1) 3.4 mmol/L (3.5-5.1) Chloride Level 104 mmol/L (98-107) 106 mmol/L (98-107) Carbon Dioxide Level 28 mmol/L (21-32) 28 mmol/L (21-32) Anion Gap 8 (6-14) 9 (6-14) Blood Urea Nitrogen 4 mg/dL (7-20) 4 mg/dL (7-20) Creatinine 0.6 mg/dL (0.6-1.0) 0.5 mg/dL (0.6-1.0) Estimated GFR (Cockcroft-Gault) 101.3 125.0 BUN/Creatinine Ratio 7 (6-20) 8 (6-20) Glucose Level 131 mg/dL (70-99) 113 mg/dL (70-99) Lactic Acid Level 1.3 mmol/L (0.4-2.0) Calcium Level 9.4 mg/dL (8.5-10.1) 9.1 mg/dL (8.5-10.1) Magnesium Level 1.6 mg/dL (1.8-2.4) Total Bilirubin 0.6 mg/dL (0.2-1.0) 0.5 mg/dL (0.2-1.0) Aspartate Amino Transf (AST/SGOT) 20 U/L (15-37) 16 U/L (15-37) Alanine Aminotransferase (ALT/SGPT) 17 U/L (14-59) 14 U/L (14-59) Alkaline Phosphatase 113 U/L (46-116) 98 U/L (46-116) Total Protein 7.3 g/dL (6.4-8.2) 6.7 g/dL (6.4-8.2) Albumin 3.5 g/dL (3.4-5.0) 3.0 g/dL (3.4-5.0) Albumin/Globulin Ratio 0.9 (1.0-1.7) 0.8 (1.0-1.7) Iron Level 29 ug/dL (50-170) Total Iron Binding Capacity 357 ug/dL (250-450) Iron Saturation 8 % (15-34) Procalcitonin < 0.10 ng/mL (0.00-0.10) Microbiology 01/02/19 Blood Culture - Preliminary, Resulted NO GROWTH AFTER 1 DAY Medications Current Medications Morphine Sulfate (Morphine Sulfate) 4 mg 1X ONCE IV Last administered on 01/02/19at 10:34; Start 01/02/19 at 10:15; Stop 01/02/19 at 10:16; Status DC Ondansetron HCl (Zofran) 4 mg 1X ONCE IV Last administered on 01/02/19at 10:34; Start 01/02/19 at 10:15; Stop 01/02/19 at 10:16; Status DC Iohexol (Omnipaque 300 Mg/ml) 75 ml 1X ONCE IV ; Start 01/02/19 at 11:15; Stop 01/02/19 at 11:16; Status DC Info (CONTRAST GIVEN -- Rx MONITORING) 1 each PRN DAILY PRN MC SEE COMMENTS; Start 01/02/19 at 11:15; Stop 01/04/19 at 11:14 Magnesium Sulfate/ Dextrose 100 ml @ 100 mls/hr 1X ONCE IV Last administered on 01/02/19at 11:49; Start 01/02/19 at 11:45; Stop 01/02/19 at 12:44; Status DC Ceftriaxone Sodium (Rocephin) 1 gm 1X ONCE IVP Last administered on 01/02/19at 11:49; Start 01/02/19 at 11:45; Stop 01/02/19 at 11:46; Status DC Ondansetron HCl (Zofran) 4 mg PRN Q8HRS PRN IV NAUSEA/VOMITING; Start 01/02/19 at 13:15; Stop 01/03/19 at 13:14; Status DC Fentanyl Citrate (Fentanyl 2ml Vial) 50 mcg PRN Q1HR PRN IV PAIN; Start 01/02/19 at 13:15; Stop 01/03/19 at 13:14; Status DC Sodium Chloride (Normal Saline Flush) 3 ml QSHIFT PRN IV AFTER MEDS AND BLOOD DRAWS; Start 01/02/19 at 15:15 Sodium Chloride 1,000 ml @ 100 mls/hr Q10H IV Last administered on 01/04/19at 08:39; Start 01/02/19 at 16:00 Ondansetron HCl (Zofran) 4 mg PRN Q4HRS PRN IV NAUSEA/VOMITING; Start 01/02/19 at 15:15 Acetaminophen (Tylenol) 650 mg PRN Q4HRS PRN PO TEMP OVER 100.4F OR MILD PAIN; Start 01/02/19 at 15:15 Al Hydroxide/Mg Hydroxide (Mylanta Plus Xs) 30 ml PRN DAILY PRN PO HEARTBURN / GAS; Start 01/02/19 at 15:15 Clonidine HCl (Catapres) 0.1 mg PRN Q6HRS PRN PO SBP>160 OR DBP>90; Start 01/02/19 at 15:15 Docusate Sodium (Colace) 100 mg PRN BID PRN PO CONSTIPATION; Start 01/02/19 at 15:15 Albuterol Sulfate (Ventolin Neb Soln) 2.5 mg PRN Q4HRS PRN NEB SHORTNESS OF BREATH; Start 01/02/19 at 15:15 Guaifenesin (Robitussin) 200 mg PRN Q4HRS PRN PO COUGH; Start 01/02/19 at 15:15 Lorazepam (Ativan) 0.5 mg PRN Q4HRS PRN PO ANXIETY / AGITATION; Start 01/02/19 at 15:15 Lorazepam (Ativan Inj) 2 mg PRN Q4HRS PRN IV ANXIETY / AGITATION; Start 01/02/19 at 15:15 Enoxaparin Sodium (Lovenox 40mg Syringe) 40 mg DAILY SQ Last administered on 01/04/19at 08:39; Start 01/03/19 at 09:00 Ceftriaxone Sodium (Rocephin) 1 gm Q24H IVP ; Start 01/03/19 at 12:00; Stop 01/02/19 at 15:25; Status DC Folic Acid (Folic Acid) 1 mg DAILY PO Last administered on 01/04/19at 08:39; Start 01/02/19 at 16:30 Hydrochlorothiazide (Hydrodiuril) 25 mg DAILY PO Last administered on 01/04/19at 08:39; Start 01/02/19 at 16:30 Acetaminophen/ Hydrocodone Bitart (Lortab 5/325) 1 tab PRN Q6HRS PRN PO MODERATE-SEVERE PAIN Last administered on 01/04/19at 08:54; Start 01/02/19 at 15:15 Acetaminophen/ Hydrocodone Bitart (Lortab 5/325) 1 tab Q6HRS PO ; Start 01/02/19 at 18:00; Stop 01/02/19 at 15:53; Status DC Levothyroxine Sodium (Synthroid) 50 mcg DAILY06 PO Last administered on 01/04/19at 08:39; Start 01/02/19 at 16:30 Methotrexate (Rheumatrex) 10 mg WEEKLY PO ; Start 01/09/19 at 09:00; Status UNV Metoprolol Succinate (Toprol Xl) 100 mg BID PO Last administered on 01/04/19at 08:39; Start 01/02/19 at 21:00 Prednisone (Prednisone) 10 mg QID PO Last administered on 01/04/19at 08:39; Start 01/02/19 at 17:00 Verapamil HCl (Calan Sr) 240 mg DAILY PO Last administered on 01/04/19at 08:39; Start 01/02/19 at 16:30 Hydralazine HCl (Apresoline Inj) 10 mg PRN Q4HRS PRN IVP ELEVATED BP, SEE COMMENTS; Start 01/02/19 at 15:30 Meropenem 500 mg/ Sodium Chloride 50 ml @ 100 mls/hr Q6HRS IV Last administered on 01/03/19at 06:49; Start 01/02/19 at 18:00; Stop 01/03/19 at 11:56; Status DC Vancomycin HCl (Vanco Per Pharmacy) 1 each PRN DAILY PRN MC SEE COMMENTS Last administered on 01/02/19at 16:16; Start 01/02/19 at 15:30; Stop 01/03/19 at 11:56; Status DC Vancomycin HCl 1 gm/Sodium Chloride 250 ml @ 250 mls/hr 1X ONCE IV Last administered on 01/02/19at 15:52; Start 01/02/19 at 16:00; Stop 01/02/19 at 16:59; Status DC Vancomycin HCl 750 mg/Sodium Chloride 250 ml @ 250 mls/hr Q12H IV Last administered on 01/03/19at 03:56; Start 01/03/19 at 04:00; Stop 01/03/19 at 11:56; Status DC Vancomycin HCl (Vancomycin Trough Level) 1 each 1X ONCE MC ; Start 01/04/19 at 03:30; Stop 01/03/19 at 11:56; Status DC Magnesium Sulfate 50 ml @ 25 mls/hr 1X ONCE IV Last administered on 01/03/19at 09:57; Start 01/03/19 at 09:00; Stop 01/03/19 at 10:59; Status DC Potassium Chloride (Klor-Con) 40 meq 1X ONCE PO Last administered on 01/03/19at 09:22; Start 01/03/19 at 09:00; Stop 01/03/19 at 09:09; Status DC Albuterol/ Ipratropium (Duoneb) 3 ml RTQID NEB Last administered on 01/04/19at 07:38; Start 01/03/19 at 12:00 Pantoprazole Sodium (Protonix) 40 mg DAILYAC PO Last administered on 01/04/19at 08:39; Start 01/03/19 at 11:30 Amoxicillin/ Clavulanate Potassium (Augmentin 875/ 125mg) 1 tab BID PO Last administered on 01/04/19at 08:39; Start 01/03/19 at 13:00 Doxycycline Hyclate (Vibra-Tab) 100 mg BID PO Last administered on 01/04/19at 08:39; Start 01/03/19 at 13:00 Active Scripts Active [place] 5-325 Tablet (Acetaminophen/Hydrocodone Bitart) 1 Each Tablet 1 Tab PO Q6HRS [place] 5-325 Tablet (Acetaminophen/Hydrocodone Bitart) 1 Each Tablet 1 Tab PO PRN Q6HRS PRN Reported Prednisone 20 Mg Tablet 0.5 Tab PO QID Methotrexate (Methotrexate Sodium) 2.5 Mg Tablet 4 Tab PO WEEKLY Hydrochlorothiazide Tablet (Hydrochlorothiazide) 25 Mg Tablet 25 Mg PO DAILY Metoprolol Succinate ( Xl ) (Metoprolol Succinate) 100 Mg Tab.er.24h 1 Tab PO BID Folic Acid 1 Mg Tablet 1 Tab PO DAILY Verapamil Er (Verapamil Hcl) 240 Mg Cap24h.pel 1 Cap PO DAILY 180 MG Levothyroxine Sodium 50 Mcg Tablet 1 Tab PO DAILY Vitals/I & O Vital Sign - Last 24 Hours 01/03/19 01/03/19 01/03/19 01/03/19 09:22 09:22 11:29 13:23 Temp 97.7 97.7 Pulse 60 60 76 Resp 16 B/P (MAP) 132/73 132/73 122/74 (90) Pulse Ox 97 94 O2 Delivery Room Air Room Air 01/03/19 01/03/19 01/03/19 01/03/19 15:30 16:01 19:51 20:28 Temp 98.1 97.6 98.1 97.6 Pulse 60 59 Resp 16 16 B/P (MAP) 98/54 (69) 129/64 (85) Pulse Ox 95 95 95 97 O2 Delivery Room Air Room Air Room Air Room Air 01/03/19 01/03/19 01/04/19 01/04/19 21:11 23:43 03:10 07:38 Temp 98.3 98.3 98.3 98.3 Pulse 59 66 71 Resp 16 16 B/P (MAP) 129/64 125/68 (87) 119/85 (96) Pulse Ox 100 95 96 O2 Delivery Room Air Room Air Room Air 01/04/19 01/04/19 01/04/19 01/04/19 07:42 08:39 08:39 08:54 Temp 97.9 97.9 Pulse 74 74 74 Resp 16 16 B/P (MAP) 154/91 (112) 154/91 154/91 Pulse Ox 94 O2 Delivery Room Air Room Air Intake and Output 01/03/19 01/03/19 01/04/19 14:59 22:59 06:59 Intake Total 100 ml 300 ml 550 ml Balance 100 ml 300 ml 550 ml MAGALIE GONG MD Jan 04, 2019 09:01
[2019-01-04] MEDS ORDERED: PANT40TA77 PO (09:03)
[2019-01-04] MEDS ORDERED: IPRA4AER IH (09:03)
[2019-01-04] MEDS ORDERED: DOXY100T PO (09:03)
[2019-01-04] MEDS ORDERED: AMOX1TAB11 PO (09:03)
--- NOTE | 2019-01-04 09:21 | PDOC ---
PROGRESS NOTES Subjective Subjective HPI - f/u of Multiple myeloma ROS - no fever Objective Objective Vital Signs Date Time Temp Pulse Resp B/P (MAP) Pulse Ox O2 Delivery O2 Flow Rate FiO2 01/04/19 08:54 16 Room Air 01/04/19 08:39 74 154/91 01/04/19 07:42 97.9 94 97.9 01/03/19 07:45 2.0 Intake and Output 01/04/19 07:00 Intake Total 950 ml Balance 950 ml Intake Oral 400 ml IV Total 550 ml # Voids 5 Physical Exam Heart: Normal S1, Normal S2 General: Alert, Oriented X3, No acute distress Lungs: Clear to auscultation Neuro: Normal speech Assessment Assessment Problems Medical Problems: (1) Abdominal pain Status: Acute (2) Hypomagnesemia Status: Acute (3) Malnutrition Status: Chronic (4) Multiple myeloma Status: Chronic IMPRESSION AND PLAN: 1. Multiple myeloma diagnosed in 04/2018. She received chemotherapy under the direction of Dr. Erum William. She is currently on maintenance chemotherapy with Velcade every other week. The patient is due for treatment on 01/04/2019 and I have recommended to defer it by 1 week. I d/w RN 2. Abdominal pain. CT scan of the abdomen and pelvis does not reveal any acute changes on 01/02/2019. Appreciate GI consultation. 3. Abnormal CT scan with minimal collapse of the medial segment of the right middle lobe, likely related to mucus plugging. Appreciate pulmonary consultation. She has been started on DuoNeb, prednisone, and antibiotics. 4. Urinary tract infection, management per primary team. Comment Review of Relevant I have reviewed the following items anai (where applicable) has been applied. Labs Laboratory Tests Test 01/02/19 09:50 01/02/19 10:10 01/03/19 07:55 Urine Collection Type Unknown Urine Color Yellow Urine Clarity Clear Urine pH 6.0 Urine Specific [place] 1.010 Urine Protein Negative mg/dL (NEG-TRACE) Urine Glucose (UA) Negative mg/dL (NEG) Urine Ketones (Stick) Negative mg/dL (NEG) Urine Blood Negative (NEG) Urine Nitrite Negative (NEG) Urine Bilirubin Negative (NEG) Urine Urobilinogen Dipstick 0.2 mg/dL (0.2 mg/dL) Urine Leukocyte Esterase Large (NEG) Urine RBC 6-10 /HPF (0-2) Urine WBC 20-40 /HPF (0-4) Urine Squamous Epithelial Cells Many /LPF Urine Bacteria Many /HPF (0-FEW) Urine Mucus Slight /LPF White Blood Count 5.9 x10^3/uL (4.0-11.0) 4.7 x10^3/uL (4.0-11.0) Red Blood Count 5.42 x10^6/uL (3.50-5.40) 5.11 x10^6/uL (3.50-5.40) Hemoglobin 12.6 g/dL (12.0-15.5) 11.9 g/dL (12.0-15.5) Hematocrit 38.9 % (36.0-47.0) 36.9 % (36.0-47.0) Mean Corpuscular Volume 72 fL (79-100) 72 fL (79-100) Mean Corpuscular Hemoglobin 23 pg (25-35) 23 pg (25-35) Mean Corpuscular Hemoglobin Concent 33 g/dL (31-37) 32 g/dL (31-37) Red Cell Distribution Width 17.0 % (11.5-14.5) 17.1 % (11.5-14.5) Platelet Count 219 x10^3/uL (140-400) 216 x10^3/uL (140-400) Neutrophils (%) (Auto) 73 % (31-73) 81 % (31-73) Lymphocytes (%) (Auto) 19 % (24-48) 16 % (24-48) Monocytes (%) (Auto) 6 % (0-9) 3 % (0-9) Eosinophils (%) (Auto) 2 % (0-3) 0 % (0-3) Basophils (%) (Auto) 1 % (0-3) 0 % (0-3) Neutrophils # (Auto) 4.3 x10^3/uL (1.8-7.7) 3.8 x10^3/uL (1.8-7.7) Lymphocytes # (Auto) 1.1 x10^3/uL (1.0-4.8) 0.7 x10^3/uL (1.0-4.8) Monocytes # (Auto) 0.4 x10^3/uL (0.0-1.1) 0.2 x10^3/uL (0.0-1.1) Eosinophils # (Auto) 0.1 x10^3/uL (0.0-0.7) 0.0 x10^3/uL (0.0-0.7) Basophils # (Auto) 0.0 x10^3/uL (0.0-0.2) 0.0 x10^3/uL (0.0-0.2) Platelet Estimate Adequate (ADEQUATE) Hypochromasia Slight Anisocytosis Slight Microcytosis Present Ovalocytes Few Prothrombin Time 12.4 SEC (11.7-14.0) Prothromb Time International Ratio 1.0 (0.8-1.1) Activated Partial Thromboplast Time 29 SEC (24-38) Sodium Level 140 mmol/L (136-145) 143 mmol/L (136-145) Potassium Level 3.5 mmol/L (3.5-5.1) 3.4 mmol/L (3.5-5.1) Chloride Level 104 mmol/L (98-107) 106 mmol/L (98-107) Carbon Dioxide Level 28 mmol/L (21-32) 28 mmol/L (21-32) Anion Gap 8 (6-14) 9 (6-14) Blood Urea Nitrogen 4 mg/dL (7-20) 4 mg/dL (7-20) Creatinine 0.6 mg/dL (0.6-1.0) 0.5 mg/dL (0.6-1.0) Estimated GFR (Cockcroft-Gault) 101.3 125.0 BUN/Creatinine Ratio 7 (6-20) 8 (6-20) Glucose Level 131 mg/dL (70-99) 113 mg/dL (70-99) Lactic Acid Level 1.3 mmol/L (0.4-2.0) Calcium Level 9.4 mg/dL (8.5-10.1) 9.1 mg/dL (8.5-10.1) Magnesium Level 1.6 mg/dL (1.8-2.4) Total Bilirubin 0.6 mg/dL (0.2-1.0) 0.5 mg/dL (0.2-1.0) Aspartate Amino Transf (AST/SGOT) 20 U/L (15-37) 16 U/L (15-37) Alanine Aminotransferase (ALT/SGPT) 17 U/L (14-59) 14 U/L (14-59) Alkaline Phosphatase 113 U/L (46-116) 98 U/L (46-116) Total Protein 7.3 g/dL (6.4-8.2) 6.7 g/dL (6.4-8.2) Albumin 3.5 g/dL (3.4-5.0) 3.0 g/dL (3.4-5.0) Albumin/Globulin Ratio 0.9 (1.0-1.7) 0.8 (1.0-1.7) Iron Level 29 ug/dL (50-170) Total Iron Binding Capacity 357 ug/dL (250-450) Iron Saturation 8 % (15-34) Procalcitonin < 0.10 ng/mL (0.00-0.10) Microbiology 01/02/19 Blood Culture - Preliminary, Resulted NO GROWTH AFTER 1 DAY Medications Current Medications Morphine Sulfate (Morphine Sulfate) 4 mg 1X ONCE IV Last administered on 01/02/19at 10:34; Start 01/02/19 at 10:15; Stop 01/02/19 at 10:16; Status DC Ondansetron HCl (Zofran) 4 mg 1X ONCE IV Last administered on 01/02/19at 10:34; Start 01/02/19 at 10:15; Stop 01/02/19 at 10:16; Status DC Iohexol (Omnipaque 300 Mg/ml) 75 ml 1X ONCE IV ; Start 01/02/19 at 11:15; Stop 01/02/19 at 11:16; Status DC Info (CONTRAST GIVEN -- Rx MONITORING) 1 each PRN DAILY PRN MC SEE COMMENTS; Start 01/02/19 at 11:15; Stop 01/04/19 at 11:14 Magnesium Sulfate/ Dextrose 100 ml @ 100 mls/hr 1X ONCE IV Last administered on 01/02/19at 11:49; Start 01/02/19 at 11:45; Stop 01/02/19 at 12:44; Status DC Ceftriaxone Sodium (Rocephin) 1 gm 1X ONCE IVP Last administered on 01/02/19at 11:49; Start 01/02/19 at 11:45; Stop 01/02/19 at 11:46; Status DC Ondansetron HCl (Zofran) 4 mg PRN Q8HRS PRN IV NAUSEA/VOMITING; Start 01/02/19 at 13:15; Stop 01/03/19 at 13:14; Status DC Fentanyl Citrate (Fentanyl 2ml Vial) 50 mcg PRN Q1HR PRN IV PAIN; Start 01/02/19 at 13:15; Stop 01/03/19 at 13:14; Status DC Sodium Chloride (Normal Saline Flush) 3 ml QSHIFT PRN IV AFTER MEDS AND BLOOD DRAWS; Start 01/02/19 at 15:15 Sodium Chloride 1,000 ml @ 100 mls/hr Q10H IV Last administered on 01/04/19at 08:39; Start 01/02/19 at 16:00 Ondansetron HCl (Zofran) 4 mg PRN Q4HRS PRN IV NAUSEA/VOMITING; Start 01/02/19 at 15:15 Acetaminophen (Tylenol) 650 mg PRN Q4HRS PRN PO TEMP OVER 100.4F OR MILD PAIN; Start 01/02/19 at 15:15 Al Hydroxide/Mg Hydroxide (Mylanta Plus Xs) 30 ml PRN DAILY PRN PO HEARTBURN / GAS; Start 01/02/19 at 15:15 Clonidine HCl (Catapres) 0.1 mg PRN Q6HRS PRN PO SBP>160 OR DBP>90; Start 01/02/19 at 15:15 Docusate Sodium (Colace) 100 mg PRN BID PRN PO CONSTIPATION; Start 01/02/19 at 15:15 Albuterol Sulfate (Ventolin Neb Soln) 2.5 mg PRN Q4HRS PRN NEB SHORTNESS OF BREATH; Start 01/02/19 at 15:15 Guaifenesin (Robitussin) 200 mg PRN Q4HRS PRN PO COUGH; Start 01/02/19 at 15:15 Lorazepam (Ativan) 0.5 mg PRN Q4HRS PRN PO ANXIETY / AGITATION; Start 01/02/19 at 15:15 Lorazepam (Ativan Inj) 2 mg PRN Q4HRS PRN IV ANXIETY / AGITATION; Start 01/02/19 at 15:15 Enoxaparin Sodium (Lovenox 40mg Syringe) 40 mg DAILY SQ Last administered on 01/04/19 08:39; Start 01/03/19 at 09:00 Ceftriaxone Sodium (Rocephin) 1 gm Q24H IVP ; Start 01/03/19 at 12:00; Stop 01/02/19 at 15:25; Status DC Folic Acid (Folic Acid) 1 mg DAILY PO Last administered on 01/04/19 08:39; Start 01/02/19 at 16:30 Hydrochlorothiazide (Hydrodiuril) 25 mg DAILY PO Last administered on 01/04/19 08:39; Start 01/02/19 at 16:30 Acetaminophen/ Hydrocodone Bitart (Lortab 5/325) 1 tab PRN Q6HRS PRN PO MODERATE-SEVERE PAIN Last administered on 01/04/19 08:54; Start 01/02/19 at 15:15 Acetaminophen/ Hydrocodone Bitart (Lortab 5/325) 1 tab Q6HRS PO ; Start 01/02/19 at 18:00; Stop 01/02/19 at 15:53; Status DC Levothyroxine Sodium (Synthroid) 50 mcg DAILY06 PO Last administered on 01/04/19 08:39; Start 01/02/19 at 16:30 Methotrexate (Rheumatrex) 10 mg WEEKLY PO ; Start 01/09/19 at 09:00; Status UNV Metoprolol Succinate (Toprol Xl) 100 mg BID PO Last administered on 01/04/19at 08:39; Start 01/02/19 at 21:00 Prednisone (Prednisone) 10 mg QID PO Last administered on 01/04/19at 08:39; Start 01/02/19 at 17:00 Verapamil HCl (Calan Sr) 240 mg DAILY PO Last administered on 01/04/19at 08:39; Start 01/02/19 at 16:30 Hydralazine HCl (Apresoline Inj) 10 mg PRN Q4HRS PRN IVP ELEVATED BP, SEE COMMENTS; Start 01/02/19 at 15:30 Meropenem 500 mg/ Sodium Chloride 50 ml @ 100 mls/hr Q6HRS IV Last administered on 01/03/19at 06:49; Start 01/02/19 at 18:00; Stop 01/03/19 at 11:56; Status DC Vancomycin HCl (Vanco Per Pharmacy) 1 each PRN DAILY PRN MC SEE COMMENTS Last administered on 01/02/19at 16:16; Start 01/02/19 at 15:30; Stop 01/03/19 at 11:56; Status DC Vancomycin HCl 1 gm/Sodium Chloride 250 ml @ 250 mls/hr 1X ONCE IV Last administered on 01/02/19at 15:52; Start 01/02/19 at 16:00; Stop 01/02/19 at 16:59; Status DC Vancomycin HCl 750 mg/Sodium Chloride 250 ml @ 250 mls/hr Q12H IV Last administered on 01/03/19at 03:56; Start 01/03/19 at 04:00; Stop 01/03/19 at 11:5 6; Status DC Vancomycin HCl (Vancomycin Trough Level) 1 each 1X ONCE MC ; Start 01/04/19 at 03:30; Stop 01/03/19 at 11:56; Status DC Magnesium Sulfate 50 ml @ 25 mls/hr 1X ONCE IV Last administered on 01/03/19at 09:57; Start 01/03/19 at 09:00; Stop 01/03/19 at 10:59; Status DC Potassium Chloride (Klor-Con) 40 meq 1X ONCE PO Last administered on 01/03/19at 09:22; Start 01/03/19 at 09:00; Stop 01/03/19 at 09:09; Status DC Albuterol/ Ipratropium (Duoneb) 3 ml RTQID NEB Last administered on 01/04/19at 07:38; Start 01/03/19 at 12:00 Pantoprazole Sodium (Protonix) 40 mg DAILYAC PO Last administered on 01/04/19at 08:39; Start 01/03/19 at 11:30 Amoxicillin/ Clavulanate Potassium (Augmentin 875/ 125mg) 1 tab BID PO Last administered on 01/04/19at 08:39; Start 01/03/19 at 13:00 Doxycycline Hyclate (Vibra-Tab) 100 mg BID PO Last administered on 01/04/19at 08:39; Start 01/03/19 at 13:00 Active Scripts Active Combivent Respimat Inhal (Ipratropium/Albuterol Sulfate) 4 Gm Aer.w.adap 2 Inh IH QID 30 Days Pantoprazole Sodium (Pantoprazole Sodium) 40 Mg Tablet.dr 40 Mg PO DAILYAC 30 Days Doxycycline Hyclate 100 Mg Tablet 100 Mg PO BID 7 Days Amox Tr-K Clv 875-125 Mg Tab (Amoxicillin/Potassium Clav) 1 Each Tablet 1 Tab PO BID 7 Days Gilman 5-325 Tablet (Acetaminophen/Hydrocodone Bitart) 1 Each Tablet 1 Tab PO Q6HRS Gilman 5-325 Tablet (Acetaminophen/Hydrocodone Bitart) 1 Each Tablet 1 Tab PO PRN Q6HRS PRN Reported Prednisone 20 Mg Tablet 0.5 Tab PO QID Methotrexate (Methotrexate Sodium) 2.5 Mg Tablet 4 Tab PO WEEKLY Hydrochlorothiazide Tablet (Hydrochlorothiazide) 25 Mg Tablet 25 Mg PO DAILY Metoprolol Succinate ( Xl ) (Metoprolol Succinate) 100 Mg Tab.er.24h 1 Tab PO BID Folic Acid 1 Mg Tablet 1 Tab PO DAILY Verapamil Er (Verapamil Hcl) 240 Mg Cap24h.pel 1 Cap PO DAILY 180 MG Levothyroxine Sodium 50 Mcg Tablet 1 Tab PO DAILY Vitals/I & O Vital Sign - Last 24 Hours 01/03/19 01/03/19 01/03/19 01/03/19 09:22 09:22 11:29 13:23 Temp 97.7 97.7 Pulse 60 60 76 Resp 16 B/P (MAP) 132/73 132/73 122/74 (90) Pulse Ox 97 94 O2 Delivery Room Air Room Air 01/03/19 01/03/19 01/03/19 01/03/19 15:30 16:01 19:51 20:28 Temp 98.1 97.6 98.1 97.6 Pulse 60 59 Resp 16 16 B/P (MAP) 98/54 (69) 129/64 (85) Pulse Ox 95 95 95 97 O2 Delivery Room Air Room Air Room Air Room Air 01/03/19 01/03/19 01/04/19 01/04/19 21:11 23:43 03:10 07:38 Temp 98.3 98.3 98.3 98.3 Pulse 59 66 71 Resp 16 16 B/P (MAP) 129/64 125/68 (87) 119/85 (96) Pulse Ox 100 95 96 O2 Delivery Room Air Room Air Room Air 01/04/19 01/04/19 01/04/19 01/04/19 07:42 08:39 08:39 08:54 Temp 97.9 97.9 Pulse 74 74 74 Resp 16 16 B/P (MAP) 154/91 (112) 154/91 154/91 Pulse Ox 94 O2 Delivery Room Air Room Air Intake and Output 01/03/19 01/03/19 01/04/19 15:00 23:00 07:00 Intake Total 100 ml 300 ml 550 ml Balance 100 ml 300 ml 550 ml PAOLA SULLIVAN MD Jan 04, 2019 09:21
--- NOTE | 2019-01-04 10:02 | PDOC ---
PULMONARY PROGRESS NOTES Subjective no soa Vitals Vital Signs Date Time Temp Pulse Resp B/P (MAP) Pulse Ox O2 Delivery O2 Flow Rate FiO2 01/04/19 08:54 16 Room Air 01/04/19 08:39 74 154/91 01/04/19 07:42 97.9 94 97.9 01/03/19 07:45 2.0 ROS: No Chest Pain, No Increase Cough General: Alert, No acute distress Lungs: Clear Cardiovascular: S1 Abdomen: Soft Neuro Exam: Alert Extremities: No Edema Skin: Warm Labs Laboratory Tests Test 01/02/19 10:10 01/03/19 07:55 White Blood Count 5.9 x10^3/uL (4.0-11.0) 4.7 x10^3/uL (4.0-11.0) Red Blood Count 5.42 x10^6/uL (3.50-5.40) 5.11 x10^6/uL (3.50-5.40) Hemoglobin 12.6 g/dL (12.0-15.5) 11.9 g/dL (12.0-15.5) Hematocrit 38.9 % (36.0-47.0) 36.9 % (36.0-47.0) Mean Corpuscular Volume 72 fL (79-100) 72 fL (79-100) Mean Corpuscular Hemoglobin 23 pg (25-35) 23 pg (25-35) Mean Corpuscular Hemoglobin Concent 33 g/dL (31-37) 32 g/dL (31-37) Red Cell Distribution Width 17.0 % (11.5-14.5) 17.1 % (11.5-14.5) Platelet Count 219 x10^3/uL (140-400) 216 x10^3/uL (140-400) Neutrophils (%) (Auto) 73 % (31-73) 81 % (31-73) Lymphocytes (%) (Auto) 19 % (24-48) 16 % (24-48) Monocytes (%) (Auto) 6 % (0-9) 3 % (0-9) Eosinophils (%) (Auto) 2 % (0-3) 0 % (0-3) Basophils (%) (Auto) 1 % (0-3) 0 % (0-3) Neutrophils # (Auto) 4.3 x10^3/uL (1.8-7.7) 3.8 x10^3/uL (1.8-7.7) Lymphocytes # (Auto) 1.1 x10^3/uL (1.0-4.8) 0.7 x10^3/uL (1.0-4.8) Monocytes # (Auto) 0.4 x10^3/uL (0.0-1.1) 0.2 x10^3/uL (0.0-1.1) Eosinophils # (Auto) 0.1 x10^3/uL (0.0-0.7) 0.0 x10^3/uL (0.0-0.7) Basophils # (Auto) 0.0 x10^3/uL (0.0-0.2) 0.0 x10^3/uL (0.0-0.2) Platelet Estimate Adequate (ADEQUATE) Hypochromasia Slight Anisocytosis Slight Microcytosis Present Ovalocytes Few Prothrombin Time 12.4 SEC (11.7-14.0) Prothromb Time International Ratio 1.0 (0.8-1.1) Activated Partial Thromboplast Time 29 SEC (24-38) Sodium Level 140 mmol/L (136-145) 143 mmol/L (136-145) Potassium Level 3.5 mmol/L (3.5-5.1) 3.4 mmol/L (3.5-5.1) Chloride Level 104 mmol/L (98-107) 106 mmol/L (98-107) Carbon Dioxide Level 28 mmol/L (21-32) 28 mmol/L (21-32) Anion Gap 8 (6-14) 9 (6-14) Blood Urea Nitrogen 4 mg/dL (7-20) 4 mg/dL (7-20) Creatinine 0.6 mg/dL (0.6-1.0) 0.5 mg/dL (0.6-1.0) Estimated GFR (Cockcroft-Gault) 101.3 125.0 BUN/Creatinine Ratio 7 (6-20) 8 (6-20) Glucose Level 131 mg/dL (70-99) 113 mg/dL (70-99) Lactic Acid Level 1.3 mmol/L (0.4-2.0) Calcium Level 9.4 mg/dL (8.5-10.1) 9.1 mg/dL (8.5-10.1) Magnesium Level 1.6 mg/dL (1.8-2.4) Total Bilirubin 0.6 mg/dL (0.2-1.0) 0.5 mg/dL (0.2-1.0) Aspartate Amino Transf (AST/SGOT) 20 U/L (15-37) 16 U/L (15-37) Alanine Aminotransferase (ALT/SGPT) 17 U/L (14-59) 14 U/L (14-59) Alkaline Phosphatase 113 U/L (46-116) 98 U/L (46-116) Total Protein 7.3 g/dL (6.4-8.2) 6.7 g/dL (6.4-8.2) Albumin 3.5 g/dL (3.4-5.0) 3.0 g/dL (3.4-5.0) Albumin/Globulin Ratio 0.9 (1.0-1.7) 0.8 (1.0-1.7) Iron Level 29 ug/dL (50-170) Total Iron Binding Capacity 357 ug/dL (250-450) Iron Saturation 8 % (15-34) Procalcitonin < 0.10 ng/mL (0.00-0.10) Medications Active Scripts Medications Dose Route/Sig Max Daily Dose Days Date Category Dose Instructions Combivent Respimat Inhal (Ipratropium/Albuterol Sulfate) 4 Gm Aer.w.adap 2 Inh IH QID 01/04/19 Rx Pantoprazole Sodium (Pantoprazole Sodium) 40 Mg Tablet.dr 40 Mg PO DAILYAC 30 01/04/19 Rx Doxycycline Hyclate 100 Mg Tablet 100 Mg PO BID 01/04/19 Rx Amox Tr-K Clv 875-125 Mg Tab (Amoxicillin/Potassium Clav) 1 Each Tablet 1 Tab PO BID 01/04/19 Rx [place] 5-325 Tablet (Acetaminophen/Hydrocodone Bitart) 1 Each Tablet 1 Tab PO Q6HRS 06/14/18 Rx Prednisone 20 Mg Tablet 0.5 Tab PO QID 05/06/18 Reported Methotrexate (Methotrexate Sodium) 2.5 Mg Tablet 4 Tab PO WEEKLY 05/06/18 Reported Hydrochlorothiazide Tablet (Hydrochlorothiazide) 25 Mg Tablet 25 Mg PO DAILY 05/06/18 Reported Metoprolol Succinate ( Xl ) (Metoprolol Succinate) 100 Mg Tab.er.24h 1 Tab PO BID 05/06/18 Reported Folic Acid 1 Mg Tablet 1 Tab PO DAILY 05/06/18 Reported Verapamil Er (Verapamil Hcl) 240 Mg Cap24h.pel 1 Cap PO DAILY 05/06/18 Reported 180 MG Levothyroxine Sodium 50 Mcg Tablet 1 Tab PO DAILY 05/06/18 Reported [place] 5-325 Tablet (Acetaminophen/Hydrocodone Bitart) 1 Each Tablet 1 Tab PO PRN Q6HRS PRN 11/21/17 Rx Impression . 1. Abnormal CT chest with minimal collapse of the medial subsegment of the right middle lobe and likely related to mucus plugging. She has air bronchograms. No radiographic suspicion for malignancy. 2. History of MGUS, treated with chemo, details of which are not available. 3. Bronchospasm, likely related to mucus plugging. resolved Plan . 1. DuoNeb. 2. Continue prednisone. 3. antibiotics, which could be deescalated soon. 4. Normal procalcitonin level. 5. Follow Oncology recommendation regarding details of MGUS and the chemo that she has received. 6. Radiographically, no signs of any chemo-induced pneumonitis. 7. Discussed with RN. 8. ok with [facility] pulmonary serrato BONG VEGA MD Jan 04, 2019 10:02
--- NOTE | 2019-01-04 10:56 | PDOC ---
Infectious Disease Note Subjective Subjective Ready to go home Tolerating the abx ROS ROS o/w neg Vital Sign Vital Signs Vital Signs Date Time Temp Pulse Resp B/P (MAP) Pulse Ox O2 Delivery O2 Flow Rate FiO2 01/04/19 08:54 16 Room Air 01/04/19 08:39 74 154/91 01/04/19 07:42 97.9 94 97.9 01/03/19 07:45 2.0 Physical Exam PHYSICAL EXAM CONSTITUTIONAL: She is lying in bed. She smiled. She is in no acute distress. HEENT: Pupils are equal and reactive. Oral cavity, pharynx is clear. NECK: Supple. LUNGS: Decreased in the bases. HEART: S1 and S2. She complains of pain over her right flank area. ABDOMEN: Soft and nontender. No guarding or rebound. EXTREMITIES: No clubbing, cyanosis, or gross edema. SKIN: Warm to touch, without signs of rash. NEUROLOGIC: She is nonfocal. Affect is pleasant. Labs Micro Microbiology 01/02/19 Blood Culture - Preliminary, Resulted NO GROWTH AFTER 1 DAY Objective Assessment ? UTI - likely contamination - asymptomatic and mod squamous cells Right pneumonitis vs plugging Multiple myeloma immunosuppression Plan Plan of Care D/c home on Augmentin/doxy through 01/09 F/u labs and cults D/w Dr. Pike and patients Used poem writer services GITA OMALLEY MD Jan 04, 2019 10:56
--- NOTE | 2019-01-04 11:05 | PDOC3 ---
Discharge Summary Visit Information Date of Admission: Jan 02, 2019 Date of Discharge: Jan 04, 2019 Admitting Diagnosis: Abdominal pain Final Diagnosis Problems Medical Problems: (1) Abdominal pain Status: Acute (2) Hypomagnesemia Status: Acute (3) Malnutrition Status: Chronic (4) Multiple myeloma Status: Chronic Brief Hospital Course Allergies Allergies Coded Allergies Type Severity Reaction Last Updated Verified No Known Drug Allergies 11/21/17 No Vital Signs Vital Signs Date Time Temp Pulse Resp B/P (MAP) Pulse Ox O2 Delivery O2 Flow Rate FiO2 01/04/19 08:54 16 Room Air 01/04/19 08:39 74 154/91 01/04/19 07:42 97.9 94 97.9 01/03/19 07:45 2.0 Lab Results Laboratory Tests Test 01/03/19 07:55 White Blood Count 4.7 x10^3/uL (4.0-11.0) Red Blood Count 5.11 x10^6/uL (3.50-5.40) Hemoglobin 11.9 g/dL (12.0-15.5) Hematocrit 36.9 % (36.0-47.0) Mean Corpuscular Volume 72 fL (79-100) Mean Corpuscular Hemoglobin 23 pg (25-35) Mean Corpuscular Hemoglobin Concent 32 g/dL (31-37) Red Cell Distribution Width 17.1 % (11.5-14.5) Platelet Count 216 x10^3/uL (140-400) Neutrophils (%) (Auto) 81 % (31-73) Lymphocytes (%) (Auto) 16 % (24-48) Monocytes (%) (Auto) 3 % (0-9) Eosinophils (%) (Auto) 0 % (0-3) Basophils (%) (Auto) 0 % (0-3) Neutrophils # (Auto) 3.8 x10^3/uL (1.8-7.7) Lymphocytes # (Auto) 0.7 x10^3/uL (1.0-4.8) Monocytes # (Auto) 0.2 x10^3/uL (0.0-1.1) Eosinophils # (Auto) 0.0 x10^3/uL (0.0-0.7) Basophils # (Auto) 0.0 x10^3/uL (0.0-0.2) Sodium Level 143 mmol/L (136-145) Potassium Level 3.4 mmol/L (3.5-5.1) Chloride Level 106 mmol/L (98-107) Carbon Dioxide Level 28 mmol/L (21-32) Anion Gap 9 (6-14) Blood Urea Nitrogen 4 mg/dL (7-20) Creatinine 0.5 mg/dL (0.6-1.0) Estimated GFR (Cockcroft-Gault) 125.0 BUN/Creatinine Ratio 8 (6-20) Glucose Level 113 mg/dL (70-99) Calcium Level 9.1 mg/dL (8.5-10.1) Iron Level 29 ug/dL (50-170) Total Iron Binding Capacity 357 ug/dL (250-450) Iron Saturation 8 % (15-34) Total Bilirubin 0.5 mg/dL (0.2-1.0) Aspartate Amino Transf (AST/SGOT) 16 U/L (15-37) Alanine Aminotransferase (ALT/SGPT) 14 U/L (14-59) Alkaline Phosphatase 98 U/L (46-116) Total Protein 6.7 g/dL (6.4-8.2) Albumin 3.0 g/dL (3.4-5.0) Albumin/Globulin Ratio 0.8 (1.0-1.7) Procalcitonin < 0.10 ng/mL (0.00-0.10) Brief Hospital Course Ms Evans is a 63-year-old female from [facility] w/ PMHx vision loss, rheumatoid arthritis, on methotrexate, osteoporosis, osteomyelitis, hypothyroidism, hypertension, giant cell arteritis, GERD, foot lesion, cataract, ankle fracture, type 2 diabetes who was diagnosed with IgA lambda multiple myeloma, stage I with normal cytogenetics by a bone marrow biopsy on 05/06/2018. Skeletal survey on 04/26/2018 revealed multiple lytic lesions. She was started on chemotherapy with Velcade, dexamethasone and Revlimid on 05/28/2018 and Revlimid was discontinued after cycle #2 because of her reaction to Revlimid causing severe joint pains and skin burning. She did not want to resume Revlimid anymore. She has been tolerating outpatient treatment pretty well this year, but was admitted through ED on 01/02/19 due to pain that started her right hip and has progressed up to her abdomen. CT suggestive of lung infiltrate vs atelectasis. With nebs and IS her pain improved and lung opened up. Seen by ID, Heme/Onc, and Pulmonology Today pain is improved. Her significant other wishes to take her home. Potassium 3.4 today and mag 1.6. Still on antibiotics currently. No SOB or CP. IS is helping her take deep breaths, transitioned to oral antibiotics Right hip pain Abdominal pain - possible enteritis on CT, was given empiric antibiotics IgA multiple myeloma vision loss rheumatoid arthritis, on methotrexate osteoporosis hypothyroidism hypertension h/o giant cell arteritis GERD cataracts type 2 diabetes Greater than 30 minutes spent on discharge. Discharge Information Condition at Discharge: Improved Follow Up: Weeks (2) Disposition/Orders: D/C to Home Scheduled Amoxicillin/Potassium Clav (Amox Tr-K Clv 875-125 Mg Tab) 1 Each Tablet, 1 TAB PO BID for pneumonia/UTI for 7 Days, #14 Prescribed by: MAGALIE GONG MD on 01/04/19902 Doxycycline Hyclate (Doxycycline Hyclate) 100 Mg Tablet, 100 MG PO BID for Pneumonia for 7 Days, #14 Prescribed by: MAGALIE GONG MD on 01/04/1903 Folic Acid (Folic Acid) 1 Mg Tablet, 1 TAB PO DAILY for VITAMIN, #90 Ref 1 (Reported) Entered as Reported by: Marcia Trevino on 05/06/18914 Last Action: Continued on 01/02/191515 by IGNACIO LEGER MD Hydrochlorothiazide (Hydrochlorothiazide Tablet ) 25 Mg Tablet, 25 MG PO DAILY for DIURETIC, Ref 0 (Reported) Entered as Reported by: Marcia Trevino on 05/06/18914 Last Action: Continued on 01/02/191515 by IGNACIO LEGER MD Hydrocodone/Apap 5-325 (Theodosia 5-325 Tablet) 1 Each Tablet, 1 TAB PO Q6HRS, #20 Prescribed by: Leticia Bass APRN on 06/14/182058 Last Action: Continued on 01/02/191515 by IGNACIO LEGER MD Ipratropium/Albuterol Sulfate (Combivent Respimat Inhal) 4 Gm Aer.w.adap, 2 INH IH QID for Bronchitis for 30 Days, #1 Ref 2 Prescribed by: MAGALIE GONG MD on 01/04/19902 Levothyroxine Sodium (Levothyroxine Sodium) 50 Mcg Tablet, 1 TAB PO DAILY for HYPOTHYROID, #30 Ref 5 (Reported) Entered as Reported by: Marcia Trevino on 05/06/18914 Last Action: Continued on 01/02/191515 by IGNACIO LEGER MD Methotrexate Sodium (Methotrexate) 2.5 Mg Tablet, 4 TAB PO WEEKLY for ARTHRITIS, #32 Ref 2 (Reported) Entered as Reported by: Marcia Trevino on 05/06/18914 Last Action: Continued on 01/02/191515 by IGNACIO LEGER MD Metoprolol Succinate (Metoprolol Succinate ( Xl )) 100 Mg Tab.er.24h, 1 TAB PO BID for HEART RATE BLOOD PRESSURE, #30 Ref 5 (Reported) Entered as Reported by: Marcia Trevino on 05/06/18914 Last Action: Continued on 01/02/191515 by IGNACIO LEGER MD Pantoprazole Sodium (Pantoprazole Sodium ) 40 Mg Tablet.dr, 40 MG PO DAILYAC for Reflux for 30 Days, #30 Prescribed by: MAGALIE GONG MD on 01/04/19902 Prednisone (Prednisone) 20 Mg Tablet, 0.5 TAB PO QID for STEROID, #5 (Reported) Entered as Reported by: Marcia Trevino on 05/06/18915 Last Action: Continued on 01/02/191515 by IGNACIO LEGER MD Verapamil Hcl (Verapamil Er) 240 Mg Cap24h.pel, 1 CAP PO DAILY for BLOOD PRESSURE, #30 Ref 5 (Reported) 180 MG Entered as Reported by: Marcia Trevino on 05/06/18914 Last Action: Converted on 01/02/191515 by IGNACIO LEGER MD Scheduled PRN Hydrocodone/Apap 5-325 (Theodosia 5-325 Tablet) 1 Each Tablet, 1 TAB PO PRN Q6HRS PRN for PAIN, #6 Ref 0 Prescribed by: ALEXUS TEJEDA APRN on 11/21/17 5155 Last Action: Continued on 01/02/191515 by MD BELTRAN STEELE CHRISTOPHER S MD Jan 04, 2019 11:05
[2019-01-04 11:17] VITALS: BP 149/72
--- NOTE | 2019-01-04 11:34 | PDOC ---
Subjective: Subjective: Indicates eating okay and that still has some pain. Objective: Objective: Per nurse - not eating much here but thinks she just wants food from home. Vital Signs: Vital Signs Date Time Temp Pulse Resp B/P (MAP) Pulse Ox O2 Delivery O2 Flow Rate FiO2 01/04/19 11:17 98.1 66 16 149/72 (97) 95 Room Air 98.1 01/04/19 08:15 2.0 Labs: BLOOD CULTURE Preliminary NO GROWTH AFTER 2 DAYS PE: GEN: NAD LUNGS: CTAB HEART: RRR ABD: mild epigastric discomfort - also over ribs bilaterally NEURO/PSYCH: A & O �3 A/P: Upper abd pain - ?GERD ?MSK - started PPI yesterday EDIE H/o multiple myeloma and RA -- Note plans to DC - okay per GI. Needs outpt screening colonoscopy - could consider EGD as well. CRIS CORCORAN Jan 04, 2019 11:34
[2019-01-04 15:24] VITALS: BP 97/58
[2019-01-04] MEDS ORDERED: PRED20TA PO (16:59)
--- NOTE | 2019-01-04 17:20 | NUR ---
Discharge instructions given to patient and family members. Education given over new medications, uti, and hypomagnesemia. Instructions and indications of using incentive spirometer discussed. Pt demonstrated use of spirometer. Contact information for Dr. William given to pt and son. Pt notified that her appointment with Dr. William today would be rescheduled 1 week from now. Pt and son verbalizes understanding.
[2019-01-09] MEDS ORDERED: METHOTREXATE SODIUM 2.5 MG TABLET PO SCH (09:00)
== END 2019-01-04 17:26 | disposition home or self-care (01) | DRG 392 ==
LOC: ER 09:30 → 6 SOUTH 13:32
PROVIDERS: ADMIT Family Medicine; ATTEND Family Medicine
DX: K52.9 Noninfective gastroenteritis and colitis, unspecified (principal); N39.0 Urinary tract infection, site not specified; C90.00 Multiple myeloma not having achieved remission; E46 Unspecified protein-calorie malnutrition; J98.11 Atelectasis; E03.9 Hypothyroidism, unspecified; E11.36 Type 2 diabetes mellitus with diabetic cataract; E83.42 Hypomagnesemia; F17.210 Nicotine dependence, cigarettes, uncomplicated; I10 Essential (primary) hypertension; I25.10 Atherosclerotic heart disease of native coronary artery without angina pectoris; K21.9 Gastro-esophageal reflux disease without esophagitis; M06.9 Rheumatoid arthritis, unspecified; M31.6 Other giant cell arteritis; M81.0 Age-related osteoporosis without current pathological fracture; Z82.49 Family history of ischemic heart disease and other diseases of the circulatory system; Z92.21 Personal history of antineoplastic chemotherapy; Z79.899 Other long term (current) drug therapy
CPT/HCPCS: 36415; 71045; 71250; 74176; 80053; 81001; 83540; 83550; 83605; 83735; 84145; 85025; 85610; 85730; 87040; 87086; 94640; 96374; 96375; J0696; J1650; J2185; J2270; J2405; J3370; J3475; J7030; J7050; J7512; J7620; 99285-25; G0378

== ENCOUNTER 2019-01-08 12:36 | Emergency (ER) | payer OTHER ==
[~2019-01-08] VITALS: Ht 137.2 cm; Wt 40.8 kg
[~2019-01-08 12:36] MED LIST changes: +AMOX1TAB11 PO; +DOXY100T PO; +IPRA4AER IH; +PANT40TA77 PO
[2019-01-08 13:07] VITALS: BP 92/63
--- NOTE | 2019-01-08 13:19 | PHYS DOC ---
Past Medical History Past Medical History: Diabetes-Type II, Hypertension Additional Past Medical Histor: BONE MARROW CANCER Past Surgical History: No Surgical History Alcohol Use: None Drug Use: None Adult General Chief Complaint Chief Complaint: SKIN RASH/ABSCESS HPI HPI Patient is a 63 year old Hebrew speaking female with history of bone marrow cancer, hypertension, diabetes type 2, who presents to the ED today complaining of a rash on her left chest area that she noted this morning. Patient denies any fever. Patient states her last chemotherapy injection was one and a half weeks ago. Denies any fever, nausea, vomiting. Interpretation was provided by patient's son Review of Systems Review of Systems Constitutional: Denies fever or chills [] Musculoskeletal: Denies back pain or joint pain [] Integument: Reports rash to the chest region Neurologic: Denies headache, focal weakness or sensory changes [] All other systems were reviewed and found to be within normal limits, except as documented in this note. Allergies Allergies Allergies Coded Allergies Type Severity Reaction Last Updated Verified No Known Drug Allergies 11/21/17 No Physical Exam Physical Exam Constitutional: Well developed, well nourished, no acute distress, non-toxic appearance. [] Skin: Small amount of erythematous rash noted on patient's chest and mid back consistent with shingles. Back: No tenderness, no CVA tenderness. [] Extremities: No tenderness, no cyanosis, no clubbing, ROM intact, no edema. [] Neurologic: Alert and oriented X 3, normal motor function, normal sensory function, no focal deficits noted. [] Psychologic: Affect normal, judgement normal, mood normal. [] Current Patient Data Vital Signs Vital Signs Date Time Temp Pulse Resp B/P (MAP) Pulse Ox O2 Delivery O2 Flow Rate FiO2 01/08/19 13:07 98.1 67 14 96 Room Air 98.1 EKG EKG [] Radiology/Procedures Radiology/Procedures [] Course & Med Decision Making Course & Med Decision Making Pertinent Labs and Imaging studies reviewed. (See chart for details) This is a 63-year-old female patient presenting to the ED today with a rash consistent of shingles, rash began today. Discharged on acyclovir. Follow-up with PCP in 1-2 weeks. Dragon Disclaimer Dragon Disclaimer This electronic medical record was generated, in whole or in part, using a voice recognition dictation system. Departure Departure Impression: Primary Impression: Shingles Disposition: HOME, SELF-CARE Condition: STABLE Referrals: HILDA SHAHID MD (PCP) follow up in one week Patient Instructions: Shingles, [id number] Additional Instructions: You were evaluated in the emergency room and noted to have shingles. Take the prescribed medications as ordered.This is a contagious rash. Follow up with your doctor next week Scripts Acyclovir (ACYCLOVIR) 800 Mg Tablet 1 TAB PO 5XDAY, #50 TAB Prov: DERRICK MARTINEZ APRN 01/08/19 Problem Qualifiers Primary Impression: Shingles Herpes zoster complications: without complications Qualified Codes: B02.9 - Zoster without complications DERRICK MARTINEZ APRN Jan 08, 2019 13:19
[2019-01-08] MEDS ORDERED: ACYC800T PO (13:29)
== END 2019-01-08 13:37 | disposition home or self-care (01) ==
LOC: ER 12:36
DX: B02.9 Zoster without complications (principal); E11.9 Type 2 diabetes mellitus without complications; I10 Essential (primary) hypertension
CPT/HCPCS: 99283

== ENCOUNTER 2020-04-15 13:53 | Emergency (ER) | payer OTHER ==
[~2020-04-15] VITALS: Ht 137.2 cm; Wt 45.0 kg
[~2020-04-15 13:53] MED LIST changes: +ACYC800T PO
[2020-04-15 14:15] VITALS: BP 146/86
[2020-04-15] MEDS ORDERED: MINE50OI TP (15:01)
[2020-04-15] MEDS ORDERED: HYDR30CR74 TP (15:01)
--- NOTE | 2020-04-15 15:01 | ED.ADGEN ---
Past Medical History Past Medical History: Diabetes-Type II, Hypertension Additional Past Medical Histor: BONE MARROW CANCER Past Surgical History: No Surgical History Smoking Status: Former Smoker Alcohol Use: None Drug Use: None General Adult EDM: Chief Complaint: SKIN PROBLEM HPI: HPI: Patient 64-year-old female presents to the emergency room complaining of a rash started on her neck and then extended down into her chest over the last few days. She has had similar rashes like this in the past. She states that it is very itchy. She denies any kind of fever. She believes that it is an allergy but she is unsure what she is allergic to. She otherwise feels normal. It does not gotten worse over the last couple of days. They have not tried anything at home for her symptoms. Review of Systems: Review of Systems: Complete ROS is negative unless otherwise documented in HPI Allergies: Allergies: Allergies Coded Allergies Type Severity Reaction Last Updated Verified No Known Drug Allergies 11/21/17 No Physical Exam: PE: General: Awake, alert, NAD. Well Nourished, well hydrated. Cooperative HEENT: Atraumatic, EOMI, PERRL, airway patent, moist oral mucosa Neck: Supple, trachea midline Respiratory: CTA bilaterally, normal effort, no wheezing/crackles CV: RRR, no murmur, cap refill <2 GI: Soft, nondistended, nontender, no masses MSK: No obvious deformities Skin: Warm, dry, intact. Patient has raised small papules on her chest with excoriations consistent with contact dermatitis Neuro: A&O x3, speech NL, sensory and motor grossly intact, no focal deficits Psych: Normal affect, normal mood, not suicidal or homicidal Current Patient Data: Vital Signs: Vital Signs Date Time Temp Pulse Resp B/P (MAP) Pulse Ox O2 Delivery O2 Flow Rate FiO2 04/15/20 14:15 98.8 93 16 146/86 (106) 94 Room Air 98.8 EKG: EKG: [] Heart Score: Risk Factors: Risk Factors: DM, Current or recent (<one month) smoker, HTN, HLP, family history of CAD, obesity. Risk Scores: Score 0 - 3: 2.5% MACE over next 6 weeks - Discharge Home Score 4 - 6: 20.3% MACE over next 6 weeks - Admit for Clinical Observation Score 7 - 10: 72.7% MACE over next 6 weeks - Early Invasive Strategies Radiology/Procedures: Radiology/Procedures: [] Course & Med Decision Making: Course & Med Decision Making Pertinent Labs and Imaging studies reviewed. (See chart for details) Patient is a 64-year-old female who presents to the emergency room with a mild rash on her chest. She is nontoxic-appearing. She does not have any systemic symptoms. This appears to be contact dermatitis. Will treat with moisturizer and hydrocortisone. Patient's test results and vitals while in the ED were fully reviewed and discussed with the patient. Patient is stable and at this time does not need admission to the hospital. We have discussed strict return precautions and the importance of following up with their Primary Care Physician. Patient stated understanding and was given an opportunity to ask any questions. Patient is in agreement with plan. Dragon Disclaimer: Dragon Disclaimer: This electronic medical record was generated, in whole or in part, using a voice recognition dictation system. Departure Departure Impression: Primary Impression: Contact dermatitis Disposition: PA HOME SELF CARE/HOMELESS Condition: STABLE Referrals: HILDA SHAHID MD (PCP) Patient Instructions: Contact Dermatitis Scripts Mineral Oil/Hydrophil Petrolat (AQUAPHOR HEALING OINTMENT) 50 Gm Oint...g. 1 DILLON TP TID for 30 Days, #120 GM 0 Refills Prov: SALMA KIRBY MD 04/15/20 Hydrocortisone (Hydrocortisone) 30 Gm Cream.appl 1 DILLON TP BID for 7 Days, #30 GM 0 Refills Prov: SALMA KIRBY MD 04/15/20 SALMA KIRBY MD Apr 15, 2020 15:01
== END 2020-04-15 15:10 | disposition home or self-care (01) ==
LOC: ER 13:53
DX: L23.9 Allergic contact dermatitis, unspecified cause (principal); E11.9 Type 2 diabetes mellitus without complications; I10 Essential (primary) hypertension; Z85.9 Personal history of malignant neoplasm, unspecified; Z87.891 Personal history of nicotine dependence
CPT/HCPCS: 99282

== ENCOUNTER 2020-09-12 08:34 | Emergency (ER) | payer OTHER ==
[~2020-09-12] VITALS: Ht 121.9 cm; Wt 45.5 kg
[~2020-09-12 08:34] MED LIST changes: -ACYC800T PO; +ACYC800T88 PO; +HYDR30CR74 TP; +MINE50OI TP
[2020-09-12 08:45] VITALS: BP 164/103
[2020-09-12] MEDS ORDERED: PRED50TA PO (09:13)
--- NOTE | 2020-09-12 09:14 | ED.ADGEN ---
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 The patient's daughter provides history as the patient's [place] language is [place]. The patient has developed a widespread urticarial rash over the past 3 days and is unaware of what may have provoked this. The patient denies any history of new exposures in the form of foods, medications or travel. Additionally the patient denies any pain or shortness of air associated with this. She has been taking forp-cwo-[id number] medications in the form of creams without success. She is awake, alert and nontoxic-appearing. Review of Systems: Review of Systems: Constitutional: Denies fever or chills. [] Eyes: Denies change in visual acuity. [] HENT: Denies nasal congestion or sore throat. [] Respiratory: Denies cough or shortness of breath. [] Cardiovascular: Denies chest pain or edema. [] GI: Denies abdominal pain, nausea, vomiting, bloody stools or diarrhea. [] : Denies dysuria. [] Musculoskeletal: Denies back pain or joint pain. [] Integument: Reports rash as well as itching. [] Neurologic: Denies headache, focal weakness or sensory changes. [] Endocrine: Denies polyuria or polydipsia. [] Lymphatic: Denies swollen glands. [] Psychiatric: Denies depression or anxiety. [] Current Medications: Current Medications Medications (Trade) Dose Ordered Sig/Idris Start Time Stop Time Status Last Admin Dose Admin Diphenhydramine HCl (Benadryl) 50 mg 1X ONCE 09/12/20 09:15 09/12/20 09:16 Famotidine (Pepcid) 40 mg 1X ONCE 09/12/20 09:15 09/12/20 09:16 Prednisone (Prednisone) 50 mg 1X ONCE 09/12/20 09:15 09/12/20 09:16 Allergies: Allergies: Allergies Coded Allergies Type Severity Reaction Last Updated Verified No Known Drug Allergies 11/21/17 No Physical Exam: PE: Constitutional: Well developed, well nourished, no acute distress, non-toxic appearance. [] HENT: Normocephalic, atraumatic, bilateral external ears normal, oropharynx moist, no oral exudates, nose normal. [] Eyes: PERRLA, EOMI, conjunctiva normal, no discharge. [] Neck: Normal range of motion, no tenderness, supple, no stridor. [] Cardiovascular:Heart rate regular rhythm, no murmur [] Lungs & Thorax: Bilateral breath sounds clear to auscultation [] Abdomen: Bowel sounds normal, soft, no tenderness, no masses, no pulsatile masses. [] Skin: Patient has generalized urticaria over her back and arms as well as chest wall and abdomen. This rash does vadim and is nontender upon palpation. There is no weeping or cellulitic character present with this. There are no petechial findings present as well. [] Back: No tenderness, no CVA tenderness. [] Extremities: No tenderness, no cyanosis, no clubbing, ROM intact, no edema. [] Neurologic: Alert and oriented X 3, normal motor function, normal sensory function, no focal deficits noted. [] Psychologic: Affect normal, judgement normal, mood normal. [] Current Patient Data: Vital Signs: Vital Signs Date Time Temp Pulse Resp B/P (MAP) Pulse Ox O2 Delivery O2 Flow Rate FiO2 09/12/20 08:45 97.8 97 18 164/103 (123) 99 Room Air 97.8 EKG: EKG: [] Heart Score: C/O Chest Pain: No Risk Factors: Risk Factors: DM, Current or recent (<one month) smoker, HTN, HLP, family history of CAD, obesity. Risk Scores: Score 0 - 3: 2.5% MACE over next 6 weeks - Discharge Home Score 4 - 6: 20.3% MACE over next 6 weeks - Admit for Clinical Observation Score 7 - 10: 72.7% MACE over next 6 weeks - Early Invasive Strategies Radiology/Procedures: Radiology/Procedures: [] Course & Med Decision Making: Course & Med Decision Making Pertinent Labs and Imaging studies reviewed. (See chart for details) [] Dragon Disclaimer: Dragon Disclaimer: This electronic medical record was generated, in whole or in part, using a voice recognition dictation system. Departure Departure Impression: Primary Impression: Urticaria Disposition: HOME / SELF CARE / HOMELESS Condition: STABLE Referrals: HILDA SHAHID MD (PCP) Patient Instructions: Allergies, Generic, Rash Additional Instructions: I have communicated to the daughter that if this rash does not resolve in the next 3 to 5 days that they should follow-up with her primary care physician for further evaluation. Daughter understands and assures me that will be the case. Should the patient develop any shortness of air or change in her medical condition, I advised him to return. The patient is nontoxic-appearing resting comfortably. She is stable for discharge peer Scripts Prednisone (PREDNISONE) 50 Mg Tablet 1 TAB PO DAILY for 5 Days, #5 TAB Prov: FRANKLIN LONDONO DO 09/12/20 FRANKLIN LONDONO DO September 12, 2020 09:14
[2020-09-12] MEDS ORDERED: predniSONE 10 MG TABLET PO ONE (09:15)
[2020-09-12] MEDS ORDERED: diphenhydrAMINE HCL 25 MG CAPSULE PO ONE (09:15)
[2020-09-12] MEDS ORDERED: FAMOTIDINE 20 MG TABLET. PO ONE (09:15)
== END 2020-09-12 09:19 | disposition home or self-care (01) ==
LOC: ER 08:34
DX: L50.9 Urticaria, unspecified (principal); E11.9 Type 2 diabetes mellitus without complications; I10 Essential (primary) hypertension; Z87.891 Personal history of nicotine dependence
CPT/HCPCS: 99284; J7512; Q0163

== ENCOUNTER 2021-08-30 11:35 | Inpatient (IN) | payer OTHER ==
[~2021-08-30] VITALS: Ht 138.4 cm; Wt 39.7 kg
[~2021-08-30 11:35] MED LIST changes: +PRED50TA PO
[2021-08-30] MEDS ORDERED: fentaNYL PF VIAL 100 MCG/2 ML VIAL IVP ONE (12:30)
[2021-08-30] MEDS ORDERED: ALBUTEROL SULFATE 2.5 MG/3 ML NEBU. NEB ONE (12:30)
[2021-08-30] MEDS ORDERED: IV NORMAL SALINE 1000ML BAG 1,000 ML IV SCH (12:30)
[2021-08-30] MEDS ORDERED: methylPREDNISolone SOD SUCC PF 125 MG/2 ML VIAL. IV ONE (12:30)
[2021-08-30] MEDS ORDERED: IOHEXOL 300 MG/ML 100ML VIAL. IV ONE (12:45)
--- NOTE | 2021-08-30 12:58 | RAD ---
EXAMINATION: XR CHEST 1V. HISTORY: 66 years Female Reason: SOA, LOW 02 . COMPARISON: January 03, 2019. Findings: There is chronic appearing interstitial thickening similar to 2019 exam with no focal infil trate. The heart size is at the upper limits of normal. There is no effusion or pneumothorax. The mediastinum and lawrence appear unremarkable. Impression: No acute process. Electronically signed by: Vinnie Stallworth MD (08/30/2021 12:56 PM) [id number]
[2021-08-30] MEDS ORDERED: CONTRAST GIVEN. MC PRN (13:00)
[2021-08-30 13:01] LABS: BASO % 0 % (0-3); EOS % 0 % (0-3); HEMATOCRIT 46.1 % (36.0-47.0); HEMOGLOBIN 15.2 g/dL (12.0-15.5); LYMPH % 16 % (24-48); MEAN CORPUSCULAR HEMOGLOBIN 26 pg (25-35); MEAN CORPUSCULAR HGB CONC 33 g/dL (31-37); MEAN CORPUSCULAR VOLUME 80 fL (79-100); MONO # 0.7 x10^3/uL (0.0-1.1); MONO % 11 % (0-9); NEUT # 4.7 x10^3/uL (1.8-7.7); NEUT % 73 % (31-73); PLATELET COUNT 123 x10^3/uL (140-400); RED BLOOD COUNT 5.78 x10^6/uL (3.50-5.40); RED CELL DISTRIBUTION WIDTH 15.1 % (11.5-14.5); WHITE BLOOD COUNT 6.4 x10^3/uL (4.0-11.0)
[2021-08-30 13:02] LABS: CALCIUM 8.9 mg/dL (8.5-10.1); CREATININE 0.7 mg/dL (0.6-1.0); POTASSIUM 3.9 mmol/L (3.5-5.1)
[2021-08-30 13:08] LABS: BASE EXCESS COOX 0 mmol/L (-3-3); HCO3 COOX 25 mmol/L (21-28); METHEMOGLOBIN 0.4 % (0.0-1.9); OXYHEMOGLOBIN 91.1 %; PCO2 COOX 41 mmHg (35-46); PO2 COOX 65 mmHg (65-108); SAT O2 COOX 93 % (92-99)
[2021-08-30 13:08] LABS: ALBUMIN 3.9 g/dL (3.4-5.0); TOTAL BILIRUBIN 0.4 mg/dL (0.2-1.0); TOTAL PROTEIN 7.9 g/dL (6.4-8.2)
[2021-08-30 13:19] LABS: INFLUENZA A PATIENT NEGATIVE (NEGATIVE); INFLUENZA B PATIENT NEGATIVE (NEGATIVE)
--- NOTE | 2021-08-30 14:11 | PHYS DOC ---
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 Patient states she gets very short of breath when she is up and walking. She is having abdominal pain and all over body pain that she states is a burning type pain that she rates a 10 out of 10. She has been taking Tylenol for her pain. Patient has a history of hypertension, diabetes, smoker, bone marrow cancer. She rates her pain 10 out of 10. Denies syncope, chest pain, nausea, vomiting, diarrhea, focal weakness, numbness or tingling. Review of Systems: Review of Systems: Constitutional: Denies fever or chills. [] Eyes: Denies change in visual acuity. [] HENT: + nasal congestion or +sore throat. [] Respiratory: + cough or +shortness of breath. [] Cardiovascular: Denies chest pain or edema. [] GI: + abdominal pain, denies nausea, vomiting, bloody stools or diarrhea. [] : Denies dysuria. [] Musculoskeletal: Denies back pain or joint pain. + Generalized body pain [] Integument: Denies rash. [] Neurologic: + headache, denies focal weakness or sensory changes. [] Endocrine: Denies polyuria or polydipsia. [] Lymphatic: Denies swollen glands. [] Psychiatric: Denies depression or anxiety. [] Heart Score: C/O Chest Pain: No HEART Score for Chest Pain: HEART Score for Chest Pain Response (Comments) Value History Slighlty/Non-Suspicious 0 ECG Nonspecific Repolarizatio 1 Age >45 - < 65 1 Risk Factors 1 or 2 Risk Factors 1 Troponin < Normal Limit 0 Total 3 Risk Factors: Risk Factors: DM, Current or recent (<one month) smoker, HTN, HLP, family history of CAD, obesity. Risk Scores: Score 0 - 3: 2.5% MACE over next 6 weeks - Discharge Home Score 4 - 6: 20.3% MACE over next 6 weeks - Admit for Clinical Observation Score 7 - 10: 72.7% MACE over next 6 weeks - Early Invasive Strategies Current Medications: Current Medications Medications (Trade) Dose Ordered Sig/Idris Start Time Stop Time Status Last Admin Dose Admin Albuterol Sulfate (Ventolin Neb Soln) 5 mg 1X ONCE 08/30/21 12:30 08/30/21 12:34 DC 08/30/21 13:39 5 MG Fentanyl Citrate (Fentanyl 2ml Vial) 25 mcg 1X ONCE 08/30/21 12:30 08/30/21 12:34 DC 08/30/21 12:57 25 MCG Info (CONTRAST GIVEN -- Rx MONITORING) 1 each PRN DAILY PRN 08/30/21 13:00 09/01/21 12:59 Iohexol (Omnipaque 300 Mg/ml) 75 ml 1X ONCE 08/30/21 12:45 08/30/21 12:46 DC Methylprednisolone Sodium Succinate (SOLU-Medrol 125MG VIAL) 100 mg 1X ONCE 08/30/21 12:30 08/30/21 12:35 DC 08/30/21 12:57 100 MG Sodium Chloride 1,000 ml @ 1,000 mls/hr Q1H 08/30/21 12:30 08/30/21 13:29 DC 08/30/21 12:56 1,000 MLS/HR Allergies: Allergies: Allergies Coded Allergies Type Severity Reaction Last Updated Verified No Known Drug Allergies 11/21/17 No Physical Exam: PE: Constitutional: Well developed, well nourished, no acute distress, non-toxic appearance. [] HENT: Normocephalic, atraumatic, bilateral external ears normal, oropharynx moist, no oral exudates, nose normal. [] Eyes: PERRLA, EOMI, conjunctiva normal, no discharge. [] Neck: Normal range of motion, no tenderness, supple, no stridor. [] Cardiovascular:Heart rate regular rhythm, no murmur [] Lungs & Thorax: Bilateral upper breath sounds inspiratory expiratory wheezing to auscultation. Tachypnea [] Abdomen: Bowel sounds normal, soft, generalized tenderness, no masses, no pulsatile masses. [] Skin: Warm, dry, no erythema, no rash. [] Back: No tenderness, no CVA tenderness. [] Extremities: No tenderness, no cyanosis, no clubbing, ROM intact, no edema. [] Neurologic: Alert and oriented X 3, normal motor function, normal sensory function, no focal deficits noted. [] Psychologic: Affect normal, judgement normal, mood normal. [] Current Patient Data: Labs: Laboratory Tests Test 08/30/21 12:38 08/30/21 12:48 08/30/21 13:00 White Blood Count 6.4 x10^3/uL (4.0-11.0) Red Blood Count 5.78 x10^6/uL (3.50-5.40) H Hemoglobin 15.2 g/dL (12.0-15.5) Hematocrit 46.1 % (36.0-47.0) Mean Corpuscular Volume 80 fL (79-100) Mean Corpuscular Hemoglobin 26 pg (25-35) Mean Corpuscular Hemoglobin Concent 33 g/dL (31-37) Red Cell Distribution Width 15.1 % (11.5-14.5) H Platelet Count 123 x10^3/uL (140-400) L Neutrophils (%) (Auto) 73 % (31-73) Lymphocytes (%) (Auto) 16 % (24-48) L Monocytes (%) (Auto) 11 % (0-9) H Eosinophils (%) (Auto) 0 % (0-3) Basophils (%) (Auto) 0 % (0-3) Neutrophils # (Auto) 4.7 x10^3/uL (1.8-7.7) Lymphocytes # (Auto) 1.0 x10^3/uL (1.0-4.8) Monocytes # (Auto) 0.7 x10^3/uL (0.0-1.1) Eosinophils # (Auto) 0.0 x10^3/uL (0.0-0.7) Basophils # (Auto) 0.0 x10^3/uL (0.0-0.2) Sodium Level 136 mmol/L (136-145) Potassium Level 3.9 mmol/L (3.5-5.1) Chloride Level 98 mmol/L (98-107) Carbon Dioxide Level 29 mmol/L (21-32) Anion Gap 9 (6-14) Blood Urea Nitrogen 10 mg/dL (7-20) Creatinine 0.7 mg/dL (0.6-1.0) Estimated GFR (Cockcroft-Gault) 84.0 BUN/Creatinine Ratio 14 (6-20) Glucose Level 90 mg/dL (70-99) Lactic Acid Level 1.2 mmol/L (0.4-2.0) Calcium Level 8.9 mg/dL (8.5-10.1) Total Bilirubin 0.4 mg/dL (0.2-1.0) Aspartate Amino Transferase (AST) 50 U/L (15-37) H Alanine Aminotransferase (ALT) 40 U/L (14-59) Alkaline Phosphatase 109 U/L (46-116) Troponin I High Sensitivity 17 ng/L (4-50) Total Protein 7.9 g/dL (6.4-8.2) Albumin 3.9 g/dL (3.4-5.0) Albumin/Globulin Ratio 1.0 (1.0-1.7) Lipase 306 U/L (73-393) Influenza Type A Antigen Negative (NEGATIVE) Influenza Type B Antigen Negative (NEGATIVE) SARS-CoV-2 Antigen (Rapid) Negative (NEGATIVE) O2 Saturation 93 % (92-99) Arterial Blood pH 7.40 (7.35-7.45) Arterial Blood pCO2 at Patient Temp 41 mmHg (35-46) Arterial Blood pO2 at Patient Temp 65 mmHg (65-108) Arterial Blood HCO3 25 mmol/L (21-28) Arterial Blood Base Excess 0 mmol/L (-3-3) Oxyhemoglobin 91.1 % Methemoglobin 0.4 % (0.0-1.9) Carbon Monoxide, Quantitative 1.2 % (0.0-1.9) FiO2 2 l Laboratory Tests 08/30/21 12:38 Laboratory Tests 08/30/21 12:38 Vital Signs: Vital Signs Date Time Temp Pulse Resp B/P (MAP) Pulse Ox O2 Delivery O2 Flow Rate FiO2 08/30/21 13:37 90 Nasal Cannula 2.0 08/30/21 12:57 22 08/30/21 11:55 98.5 95 137/77 (97) 98.5 EKG: EK and read by Dr. Gonzalez as a sinus rhythm but no STEMI Radiology/Procedures: Radiology/Procedures: [] Impression: [facility] [address] [place] [address] IMAGING REPORT Signed PATIENT: FABY MCCABE ACCOUNT: [id number] : 1955 LOCATION: ER AGE: 66 SEX: F EXAM STATUS: PRE ER ORD. PHYSICIAN: ALEXUS TEJEDA APRN REASON: SOA, LOW 02 PROCEDURE: PORTABLE CHEST 1V EXAMINATION: XR CHEST 1V. HISTORY: 66 years Female Reason: SOA, LOW 02 . COMPARISON: January 03, 2019. Findings: There is chronic appearing interstitial thickening similar to 2019 exam with no focal infiltrate. The heart size is at the upper limits of normal. There is no effusion or pneumothorax. The mediastinum and lawrence appear unremarkable. Impression: No acute process. Electronically signed by: Sada Stallworth MD (08/30/2021 12:56 PM) [id number] DICTATED and SIGNED BY: SADA STALLWORTH MD DATE: 08/30/21 1255 [facility] [address] [place] [address] IMAGING REPORT Signed PATIENT: FABY MCCABE ACCOUNT: [id number] : 1955 LOCATION: ER AGE: 66 SEX: F EXAM STATUS: REG ER ORD. PHYSICIAN: ALEXUS TEJEDA APRN REASON: ABD PAIN, TENDERNESS PROCEDURE: CT ABDOMEN PELVIS WO CONTRAST EXAMINATION: CT ABDOMEN+PELVIS WO. Technique: Axial images with coronal and sagittal reconstructions are performed of abdomen and pelvis without contrast. One or more of the following radiation dose reduction techniques was used: automated exposure control, adjustment of mA and/or KV according to patient size, and/or utilization of iterative reconstruction technique. HISTORY: 66 years Female Reason: ABD PAIN, TENDERNESS COMPARISON: January 02, 2019. FINDINGS: There is a mild the atelectasis or scarring in the inferior lingula in the lung bases. The liver, spleen, pancreas, and adrenals appear unremarkable for an unenhanced exam. The kidneys demonstrate no hydronephrosis. No urinary tract stones. The abdominal aorta is normal in caliber. No para-aortic significantly enlarged lymph node is seen. The urinary bladder appear unremarkable. The uterus demonstrate lobulated contour which could relate to underlying fibroids. This is similar to the previous exam. No adnexal mass identified. The appendix appear unremarkable. Small to moderate amount of fecal material seen in the colon. No bowel obstruction. No significant free fluid or fluid collection in the abdomen or pelvis is seen. The osseous structures appear grossly unremarkable. IMPRESSION: Minimal left basilar atelectasis or scarring. Electronically signed by: Sada Stallworth MD (08/30/2021 2:29 PM) [id number] DICTATED and SIGNED BY: SADA STALLWORTH MD DATE: 08/30/21 140 Course & Med Decision Making: Course & Med Decision Making Pertinent Labs and Imaging studies reviewed. (See chart for details) COVID-19 CRITERIA: The patient was evaluated during the global COVID-19 pandemic, and that diagnosis was suspected/considered upon their initial presentation. Their evaluation, treatment and testing was consistent with current guidelines for patients who present with complaints or symptoms that may be related to COVID-19. See HPI. Alert and oriented x4. Very weak in use wheelchair back into the room. She is only 88% on room air. Patient is placed on 3 L of oxygen and she is 95%. She is tachypnea. Speaks in full clear sentences. Upper lung lobes have wheezing and lower lung lobes are diminished. Chest x-ray showed no acute findings. She is negative for influenza and COVID but her that is here with same symptoms is positive for influenza A. Patient is given a breathing treatment, Solu-Medrol and some fentanyl in the ED. ABG is not concerning. [] Dragon Disclaimer: Dragon Disclaimer: This electronic medical record was generated, in whole or in part, using a voice recognition dictation system. Departure Departure Impression: Primary Impression: Hypoxia Additional Impressions: Shortness of breath Exposure to influenza Disposition: ADMITTED INPATIENT Admitting Physician: HIMS Condition: STABLE Referrals: HILDA SHAHID MD (PCP) ALEXUS TEJEDA [employer]ER August 30, 2021 14:11
--- NOTE | 2021-08-30 14:32 | RAD ---
EXAMINATION: CT ABDOMEN+PELVIS WO. Technique: Axial images with coronal and sagittal reconstructions are performed of abdomen and pelvis without contrast. One or more of the following radiation dose reduction techniques was used: automated exposure control , adjustment of mA and/or KV according to patient size, and/or utilization of iterative reconstructio n technique. HISTORY: 66 years Female Reason: ABD PAIN, TENDERNESS COMPARISON: January 02, 2019. FINDINGS: There is a mild the atelectasis or scarring in the inferior lingula in the lung bases. The liver, spleen, pancreas, and adrenals appear unremarkable for an unenhanced exam. The kidneys dem onstrate no hydronephrosis. No urinary tract stones. The abdominal aorta is normal in caliber. No para-aortic significantly enlarged lymph node is seen. The urinary bladder appear unremarkable. The uterus demonstrate lobulated contour which could relate to underlying fibroids. This is similar to the previous exam. No adnexal mass identified. The appendix appear unremarkable. Small to moderate amount of fecal material seen in the colon. No inder wel obstruction. No significant free fluid or fluid collection in the abdomen or pelvis is seen. The osseous structures appear grossly unremarkable. IMPRESSION: Minimal left basilar atelectasis or scarring. Electronically signed by: Vinnie Stallworth MD (08/30/2021 2:29 PM) [id number]
[2021-08-30] MEDS ORDERED: HYDROcodone/APAP 5/325MG 1 TAB TABLET PO PRN (15:15)
[2021-08-30] MEDS ORDERED: IPRATRPIUM/ALBUTEROL 0.5/2.5MG 3 ML NEBU. NEB SCH (16:00)
[2021-08-30] MEDS: IPRATRPIUM/ALBUTEROL 0.5/2.5MG 3 ML NEBU. NEB SCH ×2 (16:00→20:00)
--- NOTE | 2021-08-30 16:12 | HP ---
DATE OF SERVICE: 08/30/2021 ADMIT DATE: 08/30/2021 CHIEF COMPLAINT: Shortness of breath. HISTORY OF PRESENT ILLNESS: The patient is a pleasant 66-year-old female who presents with shortness of breath. She does smoke. She also got exposed to influenza. Her was flu A positive. Clinically, she seems to have the flu; her test was surprisingly negative, but she is hypoxic with O2 sat of 90% on 2 liters and she also has a slightly abnormal chest x-ray. We are going to admit the patient, start Tamiflu. PAST MEDICAL HISTORY: Tobacco abuse, polypharmacy, previous pneumonia, rheumatoid arthritis, asthma, hypertension, GERD, hypothyroidism. ALLERGIES: None. FAMILY HISTORY: Diabetes. SOCIAL HISTORY: She does smoke. No drink or drugs. MEDICATIONS: Reviewed. She is on 17, please refer to MRAD. PHYSICAL EXAMINATION: VITALS: Within normal limits and are stable. GENERAL: No apparent distress. Alert and oriented. HEENT: Normal cephalic atraumatic, external auditory canals are patent EYES: Extraocular muscles are intact, pupils are equally round and reactive to light and accommodation MUSCULOSKELETAL: Well developed, well nourished, good range of motion ENDOCRINE: No thyromegaly was palpated LYMPHATICS: No cervical chain or axillary nodes were noted HEMATOPOIETIC: No bruising NECK: Supple, no JVD, no thyromegaly was noted. LUNGS: Clear to auscultation in all lung barreto without rhonchi or wheezing. HEART: RRR, S1, S2 present. Peripheral pulses intact, no obvious murmurs were noted. ABDOMEN: Soft, nontender. Positive bowel sounds no organomegaly, normal bowel sounds. EXTREMITIES: Without any cyanosis, clubbing, or edema. Pedal pulses intact, Homans sign is negative. NEUROLOGIC: Normal speech, normal tone. A and O x 3, moves all extremities, no obvious focal deficits. PSYCHIATRIC: Normal affect, normal mood. Stable. SKIN: No ulcerations or rashes, good skin turgor, no jaundice. VASCULAR: Good capillary refill, neurovascular bundle appears to be intact. ASSESSMENT AND PLAN: Influenza exposure with hypoxia, suspect clinical flu. The patient has been admitted. We will start Tamiflu. Home meds. Deep venous thrombosis prophylaxis. Full code. Carmen. CASSANDRA/FRED/PRIYA DR: CASSANDRA/alexis TID: [id number]
[2021-08-30] MEDS ORDERED: NON FORMULARY ITEM (Ipratropium/Albuterol Sulfate (Combivent Respimat Inhal) 2 INH) IH SCH (17:00)
[2021-08-30 17:10] VITALS: BP 128/69
[2021-08-30] MEDS ORDERED: ACYCLOVIR PO SCH (18:00)
[2021-08-30] MEDS: OSELTAMIVIR 30 MG CAPSULE PO SCH (18:22)
[2021-08-30] MEDS: DOXYCYCLINE HYCLATE 100 MG TABLET PO SCH ×2 (18:48→20:26)
[2021-08-30] MEDS: HYDROcodone/APAP 5/325MG 1 TAB TABLET PO SCH ×2 (18:50→23:28)
[2021-08-30 19:00] VITALS: BP 112/71
[2021-08-30] MEDS: METOPROLOL SUCC 24HR ER 100 MG TAB.ER.24H. PO SCH (20:26)
[2021-08-30] MEDS: HYDROCORTISONE 2.5% RECTAL CREAM 30GM TUBE. TP SCH (20:26)
[2021-08-30] MEDS ORDERED: HYDROPHIL PETROLAT TP SCH (21:00)
[2021-08-30] MEDS ORDERED: MINERAL OIL TP SCH (21:00)
[2021-08-30 23:05] VITALS: BP 122/59
[2021-08-31 03:32] VITALS: BP 115/62
[2021-08-31] MEDS: HYDROcodone/APAP 5/325MG 1 TAB TABLET PO SCH ×4 (05:35→23:41)
[2021-08-31] MEDS: LEVOTHYROXINE 50 MCG TABLET PO SCH (05:35)
--- NOTE | 2021-08-31 06:02 | EKG ---
[facility] [address] [place] [address] Test Date: 2021-08-30 Test Time: 12:47:41 Pat Name: FABY MCCABE Department: Room: [facility] Gender: F Fluid Dynamicist: : 1955 Requested By: ALEXUS TEJEDA Order Number: [id number] Reading MD: Vel Gardner Measurements Intervals Reeds Rate: 89 P: 58 MA: 180 QRS: 0 QRSD: 74 T: 61 QT: 366 QTc: 446 Interpretive Statements SINUS RHYTHM LEFTWARD AXIS ST & T ABNORMALITY, CONSIDER ANTEROLATERAL ISCHEMIA OR LEFT VENTRICULAR STRAIN ABNORMAL ECG Electronically Signed On 09-02-2021 10:13:44 CDT by Vel Gardner
[2021-08-31 07:00] VITALS: BP 106/66
[2021-08-31] MEDS: IPRATRPIUM/ALBUTEROL 0.5/2.5MG 3 ML NEBU. NEB SCH ×4 (08:00→20:00)
--- NOTE | 2021-08-31 08:20 | CONS ---
DATE OF CONSULTATION: 08/31/2021 ATTENDING PHYSICIAN: Carmen Abrams DO. CONSULTING PHYSICIAN: Felisa Nielsen MD. REASON FOR CONSULTATION: The patient is seen in pulmonary consultation at the request of Dr. Abrams for hypoxemia. Arterial blood gas on 2 liters revealed a pH of 7.40, PaCO2 41, pO2 of 65. HISTORY OF PRESENT ILLNESS: The patient is a 66-year-old, had her son translating. She presented with increasing shortness of breath, fever, chills, night sweats, and body aches. She tested positive for influenza. Apparently, her tested positive for influenza. The patient came in, was hypoxic, placed on oxygen supplementation. Chest x-ray revealed no acute infiltrate. CT abdomen and pelvis reveals some atelectasis. She used to smoke. PAST MEDICAL HISTORY: Hypertension, diabetes. Apparently, she has had some cancer. She had a bone marrow biopsy, which was positive. ALLERGIES: No known drug allergies. REVIEW OF SYSTEMS: As indicated above, otherwise a 10-point system was reviewed and negative. Dictation Ends Here BENITO DR: Patricia TID: [id number]
[2021-08-31] MEDS ORDERED: PRED20TA PO (08:57)
[2021-08-31] MEDS ORDERED: DOXY100T PO (08:57)
[2021-08-31] MEDS ORDERED: AMOX1TAB11 PO (08:57)
[2021-08-31] MEDS ORDERED: OSEL30CA PO (08:57)
--- NOTE | 2021-08-31 08:58 | DISCH ---
DISCHARGE INSTRUCTIONS Condition on Discharge Condition on Discharge: Stable Activity After Discharge Activity Instructions for Disc: Activity as tolerated Lifting Instructions after Dis: No heavy lifting Exercise Instruction after Dis: Walk 30 min, 5 x per week, Progress as tolerated Driving Instructions after Dis: Do not drive, Do not drive today Weight Bearing Status after Di: As tolerated Diet after Discharge Diet after Discharge: Cardiac Diet Texture: Regular Liquid Texture: Thin Liquid Swallowing Supervision: None needed Checks after Discharge Checks after discharge: Check blood press - daily Follow-Up Follow up with: PCP within 2 weeks of discharge Follow Up With: Pulmonary as needed or as scheduled Treatment/Equipment after DC Adaptive Equipment Issued: None LISA HAN MD August 31, 2021 08:58
[2021-08-31] MEDS: METOPROLOL SUCC 24HR ER 100 MG TAB.ER.24H. PO SCH ×2 (09:00→20:09)
[2021-08-31] MEDS ORDERED: NON FORMULARY ITEM (Prednisone 1 TAB) PO SCH (09:00)
[2021-08-31] MEDS: hydroCHLOROthiazide 25 MG TABLET PO SCH ×2 (09:00→10:47)
[2021-08-31] MEDS ORDERED: predniSONE 20 MG TABLET PO SCH (09:00)
[2021-08-31] MEDS: FOLIC ACID 1 MG TABLET. PO SCH (10:46)
[2021-08-31] MEDS: PANTOPRAZOLE 40 MG TABLET.DR. PO SCH (10:47)
[2021-08-31] MEDS: predniSONE 20 MG TABLET PO SCH (10:47)
[2021-08-31] MEDS: VERAPAMIL SR 120 MG TABLET.ER. PO SCH (10:47)
[2021-08-31] MEDS: OSELTAMIVIR 30 MG CAPSULE PO SCH ×2 (10:48→20:10)
[2021-08-31] MEDS: HYDROCORTISONE 2.5% RECTAL CREAM 30GM TUBE. TP SCH ×2 (10:48→20:10)
[2021-08-31] MEDS: DOXYCYCLINE HYCLATE 100 MG TABLET PO SCH ×2 (10:48→20:10)
[2021-08-31 11:00] VITALS: BP 136/64
[2021-08-31 15:01] VITALS: BP 122/54
[2021-08-31 19:00] VITALS: BP 99/63
[2021-08-31 23:00] VITALS: BP 133/64
[2021-09-01 03:00] VITALS: BP 136/80
[2021-09-01] MEDS: HYDROcodone/APAP 5/325MG 1 TAB TABLET PO SCH ×2 (05:34→14:12)
[2021-09-01] MEDS: LEVOTHYROXINE 50 MCG TABLET PO SCH (05:34)
[2021-09-01 07:00] VITALS: BP 131/75
[2021-09-01] MEDS: IPRATRPIUM/ALBUTEROL 0.5/2.5MG 3 ML NEBU. NEB SCH ×3 (07:22→15:22)
[2021-09-01] MEDS: METOPROLOL SUCC 24HR ER 100 MG TAB.ER.24H. PO SCH (08:00)
[2021-09-01] MEDS: DOXYCYCLINE HYCLATE 100 MG TABLET PO SCH (08:01)
[2021-09-01] MEDS: PANTOPRAZOLE 40 MG TABLET.DR. PO SCH (08:01)
[2021-09-01] MEDS: OSELTAMIVIR 30 MG CAPSULE PO SCH (08:01)
[2021-09-01] MEDS: predniSONE 20 MG TABLET PO SCH (08:02)
[2021-09-01] MEDS: FOLIC ACID 1 MG TABLET. PO SCH (08:03)
[2021-09-01] MEDS: VERAPAMIL SR 120 MG TABLET.ER. PO SCH ×2 (08:03→08:11)
[2021-09-01] MEDS: hydroCHLOROthiazide 25 MG TABLET PO SCH (08:10)
[2021-09-01] MEDS: HYDROCORTISONE 2.5% RECTAL CREAM 30GM TUBE. TP SCH (08:13)
[2021-09-01 11:00] VITALS: BP 146/74
--- NOTE | 2021-09-01 11:24 | PDOC ---
PULMONARY PROGRESS NOTES DATE: 09/01/21 TIME: 11:23 Subjective Patient displaying had emesis after several medications. Not more short of air. Vitals Vital Signs Date Time Temp Pulse Resp B/P (MAP) Pulse Ox O2 Delivery O2 Flow Rate FiO2 09/01/21 11:00 97.5 51 18 146/74 (98) 90 Nasal Cannula 2.0 97.5 ROS: No Chest Pain, No Abdominal Pain, No Increase Cough General: Alert, No acute distress Lungs: Clear Cardiovascular: S1 Abdomen: Soft Neuro Exam: Alert Extremities: No Edema Skin: Warm Labs Laboratory Tests Test 08/30/21 12:38 08/30/21 12:48 08/30/21 13:00 08/30/21 15:55 White Blood Count 6.4 x10^3/uL (4.0-11.0) Red Blood Count 5.78 x10^6/uL (3.50-5.40) Hemoglobin 15.2 g/dL (12.0-15.5) Hematocrit 46.1 % (36.0-47.0) Mean Corpuscular Volume 80 fL (79-100) Mean Corpuscular Hemoglobin 26 pg (25-35) Mean Corpuscular Hemoglobin Concent 33 g/dL (31-37) Red Cell Distribution Width 15.1 % (11.5-14.5) Platelet Count 123 x10^3/uL (140-400) Neutrophils (%) (Auto) 73 % (31-73) Lymphocytes (%) (Auto) 16 % (24-48) Monocytes (%) (Auto) 11 % (0-9) Eosinophils (%) (Auto) 0 % (0-3) Basophils (%) (Auto) 0 % (0-3) Neutrophils # (Auto) 4.7 x10^3/uL (1.8-7.7) Lymphocytes # (Auto) 1.0 x10^3/uL (1.0-4.8) Monocytes # (Auto) 0.7 x10^3/uL (0.0-1.1) Eosinophils # (Auto) 0.0 x10^3/uL (0.0-0.7) Basophils # (Auto) 0.0 x10^3/uL (0.0-0.2) Sodium Level 136 mmol/L (136-145) Potassium Level 3.9 mmol/L (3.5-5.1) Chloride Level 98 mmol/L (98-107) Carbon Dioxide Level 29 mmol/L (21-32) Anion Gap 9 (6-14) Blood Urea Nitrogen 10 mg/dL (7-20) Creatinine 0.7 mg/dL (0.6-1.0) Estimated GFR (Cockcroft-Gault) 84.0 BUN/Creatinine Ratio 14 (6-20) Glucose Level 90 mg/dL (70-99) Lactic Acid Level 1.2 mmol/L (0.4-2.0) Calcium Level 8.9 mg/dL (8.5-10.1) Total Bilirubin 0.4 mg/dL (0.2-1.0) Aspartate Amino Transf (AST/SGOT) 50 U/L (15-37) Alanine Aminotransferase (ALT/SGPT) 40 U/L (14-59) Alkaline Phosphatase 109 U/L (46-116) Troponin I High Sensitivity 17 ng/L (4-50) Total Protein 7.9 g/dL (6.4-8.2) Albumin 3.9 g/dL (3.4-5.0) Albumin/Globulin Ratio 1.0 (1.0-1.7) Lipase 306 U/L (73-393) Influenza Type A Antigen Negative (NEGATIVE) Influenza Type B Antigen Negative (NEGATIVE) SARS-CoV-2 Antigen (Rapid) Negative (NEGATIVE) O2 Saturation 93 % (92-99) Arterial Blood pH 7.40 (7.35-7.45) Arterial Blood pCO2 at Patient Temp 41 mmHg (35-46) Arterial Blood pO2 at Patient Temp 65 mmHg (65-108) Arterial Blood HCO3 25 mmol/L (21-28) Arterial Blood Base Excess 0 mmol/L (-3-3) Oxyhemoglobin 91.1 % Methemoglobin 0.4 % (0.0-1.9) Carbon Monoxide, Quantitative 1.2 % (0.0-1.9) FiO2 2 l Coronavirus (COVID-19)(PCR) Not detected (NOT DETECTD) Medications Active Scripts Medications Dose Route/Sig Max Daily Dose Days Date Category Dose Instructions Prednisone 20 Mg Tablet 20 Mg PO DAILY 08/31/21 Rx Tamiflu (Oseltamivir Phosphate) 30 Mg Capsule 30 Mg PO BID 08/31/21 Rx Doxycycline Hyclate 100 Mg Tablet 100 Mg PO BID 5 08/31/21 Rx Amox Tr-K Clv 875-125 Mg Tab (Amoxicillin/Potassium Clav) 1 Each Tablet 1 Tab PO BID 5 08/31/21 Rx Aquaphor Healing Ointment (Mineral Oil/Hydrophil Petrolat) 50 Gm Oint...g. 1 Lev TP TID 30 04/15/20 Rx Hydrocortisone 30 Gm Cream.appl 1 Lev TP BID 7 04/15/20 Rx Combivent Respimat Inhal (Ipratropium/Albuterol Sulfate) 4 Gm Aer.w.adap 2 Inh IH QID 30 01/04/19 Rx Pantoprazole Sodium (Pantoprazole Sodium) 40 Mg Tablet.dr 40 Mg PO DAILYAC 30 01/04/19 Rx Dupont 5-325 Tablet (Acetaminophen/Hydrocodone Bitart) 1 Each Tablet 1 Tab PO Q6HRS 06/14/18 Rx Methotrexate (Methotrexate Sodium) 2.5 Mg Tablet 4 Tab PO WEEKLY 05/06/18 Reported Hydrochlorothiazide Tablet (Hydrochlorothiazide) 25 Mg Tablet 25 Mg PO DAILY 05/06/18 Reported Metoprolol Succinate ( Xl ) (Metoprolol Succinate) 100 Mg Tab.er.24h 1 Tab PO BID 05/06/18 Reported Folic Acid 1 Mg Tablet 1 Tab PO DAILY 05/06/18 Reported Verapamil Er (Verapamil Hcl) 240 Mg Cap24h.pel 1 Cap PO DAILY 05/06/18 Reported 180 MG Levothyroxine Sodium 50 Mcg Tablet 1 Tab PO DAILY 05/06/18 Reported Dupont 5-325 Tablet (Acetaminophen/Hydrocodone Bitart) 1 Each Tablet 1 Tab PO PRN Q6HRS PRN 11/21/17 Rx Impression . Acute exacerbation of COPD Emesis Plan . Possible discharge later today if emesis improves 6-minute walk BARRY DE LUNA MD September 01, 2021 11:24
[2021-09-01 14:59] VITALS: BP 92/46
--- NOTE | 2021-09-01 16:40 | NUR ---
patient discharged to home with family. Taken out by wheelchair.
--- NOTE | 2021-09-02 09:51 | CONS ---
DATE OF CONSULTATION: 08/31/2021 ATTENDING PHYSICIAN: Carmen Abrams DO. CONSULTING PHYSICIAN: Felisa Nielsen MD. REASON FOR CONSULTATION: The patient is seen in pulmonary consultation at the request of Dr. Abrams for hypoxemia. Arterial blood gas on 2 liters revealed a pH of 7.40, PaCO2 41, pO2 of 65. HISTORY OF PRESENT ILLNESS: The patient is a 66-year-old, had her son translating. She presented with increasing shortness of breath, fever, chills, night sweats, and body aches. She tested positive for influenza. Apparently, her tested positive for influenza. The patient came in, was hypoxic, placed on oxygen supplementation. Chest x-ray revealed no acute infiltrate. CT abdomen and pelvis reveals some atelectasis. She used to smoke. PAST MEDICAL HISTORY: Hypertension, diabetes. Apparently, she has had some cancer. She had a bone marrow biopsy, which was positive. ALLERGIES: No known drug allergies. REVIEW OF SYSTEMS: As indicated above, otherwise a 10-point system was reviewed and negative. ATTENDING PHYSICIAN: Carmen Abrams DO CONSULTING PHYSICIAN: Felisa Nielsen MD REVIEW OF SYSTEMS: As indicated above, otherwise a 10-point system was reviewed and negative. CURRENT MEDICATIONS: List was reviewed. PHYSICAL EXAMINATION: GENERAL: The patient was on 3 liters of oxygen supplementation. O2 saturation is greater than 92%. VITAL SIGNS: Since admission, she has been afebrile. HEENT: Eyes: The sclerae were nonicteric. NECK: Jugular venous distention was not elevated. No lymphadenopathy. CHEST: Full expansion. LUNGS: Adequate flow with no wheezes. CARDIOVASCULAR: Regular rate and rhythm with S1, S2, no S3. ABDOMEN: Soft, nontender, nondistended. EXTREMITIES: No clubbing, cyanosis or edema. NEUROLOGIC: The patient was awake, alert, following commands. A detailed neuro exam was not performed. LABORATORY DATA: Reviewed. SARS-CoV-2 was negative. White count was normal. Arterial blood gas as indicated above. IMPRESSION: 1. Acute hypoxemic respiratory failure secondary to suspect influenza. 2. Abnormal CT abdomen revealing mild basilar atelectasis and scarring. 3. Chronic obstructive pulmonary disease, unknown FEV1. 4. Tobacco dependent. PLAN: 1. We will continue current support with Tamiflu, the patient exposed to her who tested positive for influenza. 2. Continue steroids. 3. Continue empiric antibiotics. 4. Oxygen supplementation. 5. Possible discharge within the next 24-48 hours. I do appreciate the privilege in sharing in the patient's care BENITO DR: Patricia TID: [id number]
[2021-09-06] MEDS ORDERED: METHOTREXATE SODIUM 2.5 MG TABLET PO SCH (09:00)
== END 2021-09-01 16:40 | disposition home or self-care (01) | DRG 189 ==
LOC: ER 11:35 → 5 NORTH 14:40
PROVIDERS: ADMIT Internal Medicine; ATTEND Internal Medicine
DX: J96.01 Acute respiratory failure with hypoxia (principal); J98.11 Atelectasis; J44.1 Chronic obstructive pulmonary disease with (acute) exacerbation; Z20.822 Contact with and (suspected) exposure to COVID-19; J11.1 Influenza due to unidentified influenza virus with other respiratory manifestations; E11.9 Type 2 diabetes mellitus without complications; I10 Essential (primary) hypertension; F17.200 Nicotine dependence, unspecified, uncomplicated; K21.9 Gastro-esophageal reflux disease without esophagitis; E03.9 Hypothyroidism, unspecified; M06.9 Rheumatoid arthritis, unspecified; Z83.3 Family history of diabetes mellitus; Z87.01 Personal history of pneumonia (recurrent); Z79.899 Other long term (current) drug therapy
CPT/HCPCS: 36415; 36600; 71045; 74176; 80053; 82805; 83605; 83690; 84484; 85025; 87040; 87428; 93005; 94618; 94640; 96361; 96374; 96375; J2930; J3010; J7030; J7512; U0003; 99285-25; G0378; J7613